=== PATIENT | male | born 1970 | race Caucasian/White ===

== ENCOUNTER 2021-01-10 10:42 | Inpatient (IN) | payer OTHER ==
[2021-01-10] MEDS ORDERED: SODIUM CHLORIDE 0.9% 1,000 ML IV STA (11:10)
--- NOTE | 2021-01-10 11:16 | ED ---
General Adult HPI - General Chief complaint: Abdominal Pain Stated complaint: rt sided abd pain Time Seen by Provider: 01/10/21 10:56 Source: patient, RN notes reviewed Mode of arrival: ambulatory Limitations: no limitations - History of Present Illness Initial comments: Patient's a 50-year-old male presented to the emergency room today with a chief complaint of jaundice. Patient does admit that he noticed this 2 weeks ago. He does admit that he was drinking more heavily this past year. He states he's started to cut his drinking down approximately a few weeks ago. He states around the same time is when he noticed that his skin was jaundiced. He states it as Slightly better. He is only been drinking a few drinks per day of hard liquor. Patient does admit that at times she's noticed some discomfort in the right upper quadrant. He does admit that he's distended at times. Denies any other complaints or symptoms currently. Patient denies any recent fever, chills, shortness of breath, chest pain, back pain, nausea or vomiting, numbness or tingling, headaches or visual changes, or any other complaints. - Related Data Home Medications Medication Instructions Recorded Confirmed Cetirizine HCl [Zyrtec] 10 mg PO DAILY 01/10/21 01/10/21 Krill Oil 500 mg PO DAILY 01/10/21 01/10/21 L.acidoph,Paracasei, B.lactis 1 cap PO DAILY 01/10/21 01/10/21 [Probiotic] Multivitamins, Thera [Multivitamin 1 tab PO DAILY 01/10/21 01/10/21 (formulary)] Vitamin B Complex 1 cap PO DAILY 01/10/21 01/10/21 Allergies Allergy/AdvReac Type Severity Reaction Status Date / Time pistachio nut Allergy Rash/Hives Verified 01/10/21 11:22 soy Allergy Rash/Hives Verified 01/10/21 11:22 Review of Systems ROS Statement: Those systems with pertinent positive or pertinent negative responses have been documented in the HPI. ROS Other: All systems not noted in ROS Statement are negative. Past Medical History Past Medical History: No Reported History History of Any Multi-Drug Resistant Organisms: None Reported Additional Past Surgical History / Comment(s): wisdom teeth Past Psychological History: No Psychological Hx Reported Smoking Status: Former smoker Past Alcohol Use History: Abuse, Daily, Heavy Past Drug Use History: None Reported General Exam - General Exam Comments Initial Comments: General: The patient is awake and alert, in no distress, and does not appear acutely ill. Eye: Pupils are equal, round and reactive to light, extra-ocular movements are intact. Icterus present. Ears, nose, mouth and throat: There are moist mucous membranes and no oral le sions. Neck: The neck is supple Cardiovascular: There is a regular rate and rhythm. No murmur, rub or gallop is appreciated. Respiratory: Lungs are clear to auscultation, respirations are non-labored, breath sounds are equal. No wheezes, stridor, rales, or rhonchi. Gastrointestinal: Admits soft on palpation. Patient does have some mild tenderness in the right upper quadrant. No rebound, guarding or CVA tenderness. Musculoskeletal: Normal ROM, no tenderness. Strength 5/5. Sensation intact. Neurological: A&O x 3. CN II-XII intact, There are no obvious motor or sensory deficits. Coordination appears grossly intact. Speech is normal. Skin: Skin is warm and dry and no rashes or lesions are noted. Psychiatric: Cooperative, appropriate mood & affect, normal judgment. Limitations: no limitations Course Vital Signs 01/10/21 01/10/21 01/10/21 10:46 12:24 14:45 Temperature 99.0 F Pulse Rate 98 95 88 Respiratory 18 18 18 Rate Blood Pressure 132/84 121/74 115/71 O2 Sat by Pulse 96 94 L 93 L Oximetry Medical Decision Making - Medical Decision Making Patient reexamined is resting covered. Patient labs been reviewed. The case wa s discussed in detail with his PCP Dr. Monroy who will admit the patient with consult to GI. Patient is with plan states understanding and is agreement. - Lab Data Result diagrams: 01/10/21 11:25 01/10/21 11:25 Lab Results 01/10/21 01/10/21 01/10/21 Range/Units 11:25 11:25 11:25 WBC 14.9 H (3.8-10.6) k/uL RBC 4.10 L (4.30-5.90) m/uL Hgb 15.4 (13.0-17.5) gm/dL Hct 45.0 (39.0-53.0) % MCV 109.8 H (80.0-100.0) fL MCH 37.5 H (25.0-35.0) pg MCHC 34.1 (31.0-37.0) g/dL RDW 13.0 (11.5-15.5) % Plt Count 365 (150-450) k/uL MPV 10.6 Neutrophils % 79 % Lymphocytes % 11 % Monocytes % 6 % Eosinophils % 1 % Basophils % 1 % Neutrophils # 11.7 H (1.3-7.7) k/uL Lymphocytes # 1.7 (1.0-4.8) k/uL Monocytes # 0.9 (0-1.0) k/uL Eosinophils # 0.2 (0-0.7) k/uL Basophils # 0.2 (0-0.2) k/uL Manual Slide Review Performed Macrocytosis Marked A Target Cells Present PT 14.3 H (9.0-12.0) sec INR 1.4 H (<1.2) APTT 29.5 (22.0-30.0) sec Sodium (137-145) mmol/L Potassium (3.5-5.1) mmol/L Chloride (98-107) mmol/L Carbon Dioxide (22-30) mmol/L Anion Gap mmol/L BUN (9-20) mg/dL Creatinine (0.66-1.25) mg/dL Est GFR (CKD-EPI)AfAm (>60 ml/min/1.73 sqM) Est GFR (CKD-EPI)NonAf (>60 ml/min/1.73 sqM) Glucose (74-99) mg/dL Calcium (8.4-10.2) mg/dL Total Bilirubin (0.2-1.3) mg/dL AST (17-59) U/L ALT (4-49) U/L Alkaline Phosphatase (38-126) U/L Total Protein (6.3-8.2) g/dL Albumin (3.5-5.0) g/dL Amylase (30-110) U/L Lipase (23-300) U/L Urine Color Dark Yellow Urine Appearance Clear (Clear) Urine pH 6.0 (5.0-8.0) Ur Specific [place] 1.007 (1.001-1.035) Urine Protein Negative (Negative) Urine Glucose (UA) Negative (Negative) Urine Ketones Negative (Negative) Urine Blood Negative (Negative) Urine Nitrite Negative (Negative) Urine Bilirubin 4+ H (Negative) Urine Urobilinogen 2.0 (<2.0) mg/dL Ur Leukocyte Esterase Trace H (Negative) Urine RBC <1 (0-5) /hpf Urine WBC 3 (0-5) /hpf Urine Bacteria Occasional H (None) /hpf Urine Mucus Rare H (None) /hpf 01/10/21 Range/Units 11:25 WBC (3.8-10.6) k/uL RBC (4.30-5.90) m/uL Hgb (13.0-17.5) gm/dL Hct (39.0-53.0) % MCV (80.0-100.0) fL MCH (25.0-35.0) pg MCHC (31.0-37.0) g/dL RDW (11.5-15.5) % Plt Count (150-450) k/uL MPV Neutrophils % % Lymphocytes % % Monocytes % % Eosinophils % % Basophils % % Neutrophils # (1.3-7.7) k/uL Lymphocytes # (1.0-4.8) k/uL Monocytes # (0-1.0) k/uL Eosinophils # (0-0.7) k/uL Basophils # (0-0.2) k/uL Manual Slide Review Macrocytosis Target Cells PT (9.0-12.0) sec INR (<1.2) APTT (22.0-30.0) sec Sodium 131 L (137-145) mmol/L Potassium 3.8 (3.5-5.1) mmol/L Chloride 97 L (98-107) mmol/L Carbon Dioxide 23 (22-30) mmol/L Anion Gap 11 mmol/L BUN 4 L (9-20) mg/dL Creatinine 0.58 L (0.66-1.25) mg/dL Est GFR (CKD-EPI)AfAm >90 (>60 ml/min/1.73 sqM) Est GFR (CKD-EPI)NonAf >90 (>60 ml/min/1.73 sqM) Glucose 116 H (74-99) mg/dL Calcium 9.3 (8.4-10.2) mg/dL Total Bilirubin 26.3 H* (0.2-1.3) mg/dL AST 170 H (17-59) U/L ALT 64 H (4-49) U/L Alkaline Phosphatase 298 H (38-126) U/L Total Protein 7.6 (6.3-8.2) g/dL Albumin 3.6 (3.5-5.0) g/dL Amylase 55 (30-110) U/L Lipase 203 (23-300) U/L Urine Color Urine Appearance (Clear) Urine pH (5.0-8.0) Ur Specific [place] (1.001-1.035) Urine Protein (Negative) Urine Glucose (UA) (Negative) Urine Ketones (Negative) Urine Blood (Negative) Urine Nitrite (Negative) Urine Bilirubin (Negative) Urine Urobilinogen (<2.0) mg/dL Ur Leukocyte Esterase (Negative) Urine RBC (0-5) /hpf Urine WBC (0-5) /hpf Urine Bacteria (None) /hpf Urine Mucus (None) /hpf Disposition Clinical Impression: Liver cirrhosis, Cholelithiasis Disposition: ADMITTED IP TO THIS [facility] Condition: Stable Is patient prescribed a controlled substance at d/c from ED?: No Referrals: Miguel Monroy MD [Primary Care Provider] - 1-2 days Time of Disposition: 15:18
[2021-01-10 11:52] LABS: Appearance,Urine Clear (Clear); Bacteria,Urine Occasional /hpf; Bilirubin,Urine 4+ (Negative); Blood,Urine Negative (Negative); Color,Urine Dark Yellow; Glucose,Urine (UA) Negative (Negative); Ketones,Urine Negative (Negative); Leukocyte Esterase,Urine Trace (Negative); Mucus,Urine Rare /hpf; Nitrite,Urine Negative (Negative); Protein,Urine Negative (Negative); RBC,Urine <1 /hpf (0-5); Specific Gravity,Urine 1.007 (1.001-1.035); WBC,Urine 3 /hpf (0-5)
[2021-01-10 11:58] LABS: Basophils # (A) 0.2 k/uL (0-0.2); Basophils % (A) 1 %; Eosinophils # (A) 0.2 k/uL (0-0.7); Eosinophils % (A) 1 %; HGB 15.4 gm/dL (13.0-17.5); Lymphocytes # (A) 1.7 k/uL (1.0-4.8); Lymphocytes % (A) 11 %; MCH 37.5 pg (25.0-35.0); MCHC 34.1 g/dL (31.0-37.0); MCV 109.8 fL (80.0-100.0); Macrocytosis Marked; Mean Platelet Volume 10.6; Monocytes # (A) 0.9 k/uL (0-1.0); Monocytes % (A) 6 %; Neutrophils # (A) 11.7 k/uL (1.3-7.7); Neutrophils % (A) 79 %; Platelet Count 365 k/uL (150-450); WBC 14.9 k/uL (3.8-10.6)
[2021-01-10 12:08] LABS: INR 1.4 (<1.2); Partial Thromboplastin Time 29.5 sec (22.0-30.0); Prothrombin Time 14.3 sec (9.0-12.0)
[2021-01-10 12:13] LABS: ALT 64 U/L (4-49); AST 170 U/L (17-59); African American GFR (CKD) >90 (>60 ml/min/1.73 sqM); Albumin 3.6 g/dL (3.5-5.0); Amylase 55 U/L (30-110); Anion Gap 11 mmol/L; Blood Urea Nitrogen 4 mg/dL (9-20); Calcium 9.3 mg/dL (8.4-10.2); Carbon Dioxide 23 mmol/L (22-30); Chloride 97 mmol/L (98-107); Glucose 116 mg/dL (74-99); Lipase 203 U/L (23-300); Non-African American GFR(CKD) >90 (>60 ml/min/1.73 sqM); Potassium 3.8 mmol/L (3.5-5.1); Sodium 131 mmol/L (137-145)
[2021-01-10 12:15] LABS: Target Cells Present
[2021-01-10 12:26] LABS: Total Protein 7.6 g/dL (6.3-8.2)
[2021-01-10 12:27] LABS: Alkaline Phosphatase 298 U/L (38-126)
--- NOTE | 2021-01-10 13:37 | US ---
EXAMINATION TYPE: US abdomen limited DATE OF EXAM: 01/10/2021 COMPARISON: NONE CLINICAL HISTORY: pain. Jaundice and swelling x 1 week. No c/o pain EXAM MEASUREMENTS: Liver Length: 26.1 cm Gallbladder Wall: 0.2 cm CBD: 0.6 cm Right Kidney: 12.6 x 6.9 x 5.9 cm Pancreas: Heterogeneous, hypoechoic. Pancreatic duct = 0.1 cm Liver: enlarged, dilated biliary radicles Gallbladder: with multiple stones Evidence for sonographic Ngo's sign: No CBD: enlarged Right Kidney: No hydronephrosis or masses seen IMPRESSION: 1. Hepatic biliary dilatation with mild fatty infiltration. 2. Cholelithiasis 3.
[2021-01-10] MEDS ORDERED: NALOXONE 0.4 MG/ML 1 ML VIAL IV PRN (15:18)
[2021-01-10 15:34] LABS: Total Bilirubin 26.3 mg/dL (0.2-1.3)
[2021-01-10 22:40] LABS: Hepatitis A Antibody IgM Non-Reactive (Non-Reactive); Hepatitis B Core IgM Non-Reactive (Non-Reactive); Hepatitis C IgG Antibody Non-Reactive (Non-Reactive)
[2021-01-10 22:41] LABS: Hepatitis B Surface Antigen Non-Reactive (Non-Reactive)
[2021-01-10] MEDS: SODIUM CHLORIDE 0.9% 1,000 ML IV SCH (23:14)
[2021-01-10] MEDS: HYDROcodone/APAP 5-325MG 1 EACH TAB PO PRN (23:14)
[2021-01-11] MEDS: SODIUM CHLORIDE 0.9% 1,000 ML IV SCH ×2 (06:13→17:08)
[2021-01-11] MEDS ORDERED: LORazepam 2 MG/ML INJ IV PRN ×3 (09:37)
[2021-01-11 11:24] LABS: HCT 40.3 % (39.6-50.0); MCH 36.8 pg (27.0-32.0); MCHC 34.7 g/dL (32.0-37.0); MCV 106.1 fL (80.0-97.0); Mean Platelet Volume 12.2 fL (9.5-12.2); Platelet Count 304 X 10*3/uL (140-440); WBC 13.25 X 10*3/uL (4.50-10.00)
[2021-01-11 11:26] LABS: INR 1.39 (0.90-1.11); Prothrombin Time 14.8 sec (9.9-11.9)
[2021-01-11 13:40] LABS: Basophils % (A) 1.5 %; Eosinophils # (A) 0.24 X 10*3/uL (0.04-0.35); Eosinophils % (A) 1.8 %; Lymphocytes # (A) 1.95 X 10*3/uL (0.90-5.00); Lymphocytes % (A) 14.7 %; Macrocytosis (M) 2+; Monocytes # (A) 1.48 X 10*3/uL (0.20-1.00); Monocytes % (A) 11.2 %; Neutrophils # (A) 9.27 X 10*3/uL (1.80-7.70); Target Cells 2+
[2021-01-11 14:11] LABS: African American GFR (CKD) 137.8 (60.0-200.0); Albumin 3.3 g/dL (3.80-4.90); Albumin/Globulin Ratio 1.22 (1.60-3.17); Anion Gap 10.7 mmol/L (4.00-12.00); Calcium 8.2 mg/dL (8.7-10.3); Carbon Dioxide 25.3 mmol/L (21.6-31.8); Globulin 2.7 g/dL (1.6-3.3); Non-African American GFR(CKD) 118.9 (60.0-200.0); Potassium 4.2 mmol/L (3.5-5.5); Total Bilirubin 24.6 mg/dL (0.3-1.2)
--- NOTE | 2021-01-11 14:16 | MR ---
"EXAMINATION TYPE: MR liver wo/w con and mrcp DATE OF EXAM: 01/11/2021 COMPARISON: Ultrasound abdomen limited from yesterday HISTORY: CBD stone? Pain and jaundice with swelling for one week. CONTRAST: Standard multiplanar, multisequence MRI departmental protocol images were obtained without contrast a nd with 10 mL intravenous Gadavist gadolinium contrast. Imaging performed of the abdomen. Thin and t hick slice MRCP imaging is performed on the MRI scanner. FINDINGS: Liver/gallbladder/pancreas/biliary system: Mild hepatomegaly and prominent right hepatic lobe are pre sent. Liver shows diffuse signal dropout consistent with diffuse fatty infiltration and/or underlying hepatocellular disease. No surrounding ascites. Some heterogeneous postcontrast enhancement with ove rall mosaic architecture appearance without distinct suspicious focal solid or cystic mass. Prominent nondilated main portal vein. Prominent hepatic veins draining into IVC. Gallbladder has multiple sma ll dependent calculi without surrounding fluid or fat stranding. Pancreas is normal in size without c oncerning solid or cystic mass. MRCP images show multiple small stones within the central intrahepati c ducts at level of ivy hepatis extending into the extrahepatic ducts with multiple intraductal jasiel culi extending towards the ampulla. Mild intrahepatic biliary dilatation up to 9 mm on image 39 serie s 901. Pancreatic duct is not dilated. No significant intrahepatic biliary dilatation is seen. I jae mate approximately 15 stone in the biliary system outside the cystic duct. Other: Slightly elevated right hemidiaphragm with right basilar linear scarring and/or atelectasis. S plenomegaly at 16.2 cm coronal image 25. No concerning hydronephrosis seen bilaterally. There is 2.9 cm exophytic thin-walled cyst or cystic lesion posteriorly from left kidney mid pole level without en hancement suggesting proteinaceous cyst. No AAA. No suspicious bowel dilatation. Adrenal and glands a re within normal limits. Osseous structures are intact. IMPRESSION: Approximately 15 stones in the biliary system outside the cystic duct extending to the ce ntral intrahepatic ducts. No intrahepatic biliary dilatation. Mild extrahepatic biliary dilatation. A dditional multiple small calculi within gallbladder without MRI evidence for acute cholecystitis. A Yellow level critical message alert has been initiated for Miguel Monroy MD via the [employer] | Critical Results System on 01/11/2021 2:13 PM. This message alert has been sent to Kathrin Monroy MD via the preferences provided by the clinician for the receipt of Radiology Critical F indings. Message ID [id number]."
--- NOTE | 2021-01-11 16:10 | P.CONS ---
History of Present Illness - Reason for Consult Consult date: 01/11/21 hyperbilirubinemia Requesting physician: Miguel Monroy - Chief Complaint Jaundice - History of Present Illness This is a 50-year-old white male with a past medical history significant of alcohol abuse who presented to the emergency department with jaundice.. The pa светлана reports he drinks 6 beers and a half pain daily for the last 20 years up until about 2 months ago which he states he cut down and is only drinking 1-2 beers a day. Patient states his told him he was looking yellow and noticed about 2 weeks ago he was becoming more yellow and having dark urine. His been complaining also of some abdominal bloating, no nausea or vomiting. He has no other significant past medical history. Admitting lab work showed WBC 14.9 hemoglobin 15.4 hematocrit 45 platelet count 365,000 INR 1.4 total bilirubin 26.3 AST 178 OT 64 alkaline phosphatase 298 amylase 55 lipase 203. Acute Hepatitis panel nonreactive. Patient denies any previous history of liver di sease, hepatitis, or pancreatitis. Denies any previous history of gallbladder disease. This stayed about 8-10 years ago he was jaundiced, did not to seek any medical treatment at that time. The patient underwent an abdominal ultrasound that showed hepatic biliary dilation with mild fatty infiltration. CBD measured 0.6 cm. Patient denies any abdominal pain other than some abdominal distention and bloating. No nausea or vomiting. He's been afebrile. Review of Systems REVIEW OF SYSTEMS: CARDIOPULMONARY: No chest pain or shortness of breath. Gastrointestinal: Abdominal bloating and pressure.. No nausea or vomiting. No hematemesis, coffee-ground emesis. No rectal bleeding, or melena. GENITOURINARY: No dysuria or hematuria. MUSCULOSKELETAL: Reports normal range of motion., Joint pain. SKIN: No rashes. Jaundice.. ENDOCRINE: No chills, fevers. No excessive weight gain or loss. No polydipsia or polyuria. PSYCHIATRIC: Unremarkable. NEUROLOGY: No change in mental status. Denies dizziness, headache. ENT: Vision unremarkable. CONSTITUTIONAL: No recent weight loss. No fever, chills, night sweats. Past Medical History Past Medical History: No Reported History Additional Past Medical History / Comment(s): allergies History of Any Multi-Drug Resistant Organisms: None Reported Additional Past Surgical History / Comment(s): wisdom teeth Past Psychological History: No Psychological Hx Reported Smoking Status: Former smoker Past Alcohol Use History: Abuse, Daily, Heavy Past Drug Use History: None Reported Medications and Allergies Home Medications Medication Instructions Recorded Confirmed Type Cetirizine HCl [Zyrtec] 10 mg PO DAILY 01/10/21 01/10/21 History Krill Oil 500 mg PO DAILY 01/10/21 01/10/21 History L.acidoph,Paracasei, B.lactis 1 cap PO DAILY 01/10/21 01/10/21 History [Probiotic] Multivitamins, Thera [Multivitamin 1 tab PO DAILY 01/10/21 01/10/21 History (formulary)] Vitamin B Complex 1 cap PO DAILY 01/10/21 01/10/21 History Allergies Allergy/AdvReac Type Severity Reaction Status Date / Time pistachio nut Allergy Rash/Hives Verified 01/10/21 11:22 soy Allergy Rash/Hives Verified 01/10/21 11:22 Physical Exam Vitals: Vital Signs Temp Pulse Pulse Resp BP BP Pulse Ox 01/11/21 07:52 98.4 F 92 16 115/74 93 L 01/11/21 01:50 98.3 F 96 17 116/73 92 L 01/10/21 21:10 98.6 F 95 17 139/89 96 01/10/21 20:00 98.1 F 96 20 129/85 93 L 01/10/21 14:45 88 18 115/71 93 L 01/10/21 12:24 95 18 121/74 94 L 01/10/21 10:46 99.0 F 98 18 132/84 96 Intake and Output 01/10/21 01/11/21 01/11/21 22:59 06:59 14:59 Other: Voiding Method Toilet # Voids 1 2 Weight 103.419 kg General appearance: The patient is alert, oriented, appears in no acute distress. HET: Head is normocephalic and atraumatic. Conjunctiva pink. Sclera deeply icteric. Neck: Supple without lymphadenopathy. Trachea midline. Heart: S1 S2. Regular rate and rhythm. Lungs: Clear to auscultation. Abdomen: Soft, nontender, nondistended with bowel sounds. No guarding or rigidity. Skin: No rashes. Jaundice.. Extremities: Normal skin color and turgor. No pedal edema. Neurological: No focal deficits. Alert and oriented 3.. Results CBC & Chem 7: 01/11/21 07:09 01/11/21 07:09 Labs: Abnormal Lab Results - Last 24 Hours (Table) 01/10/21 01/10/21 01/10/21 Range/Units 11:25 11:25 11:25 WBC 14.9 H (3.8-10.6) k/uL RBC 4.10 L (4.30-5.90) m/uL MCV 109.8 H (80.0-100.0) fL MCH 37.5 H (25.0-35.0) pg Neutrophils # 11.7 H (1.3-7.7) k/uL Macrocytosis Marked A PT 14.3 H (9.0-12.0) sec INR 1.4 H (<1.2) Sodium (137-145) mmol/L Chloride (98-107) mmol/L BUN (9-20) mg/dL Creatinine (0.66-1.25) mg/dL Glucose (74-99) mg/dL Total Bilirubin (0.2-1.3) mg/dL AST (17-59) U/L ALT (4-49) U/L Alkaline Phosphatase (38-126) U/L Urine Bilirubin 4+ H (Negative) Ur Leukocyte Esterase Trace H (Negative) Urine Bacteria Occasional H (None) /hpf Urine Mucus Rare H (None) /hpf 01/10/21 Range/Units 11:25 WBC (3.8-10.6) k/uL RBC (4.30-5.90) m/uL MCV (80.0-100.0) fL MCH (25.0-35.0) pg Neutrophils # (1.3-7.7) k/uL Macrocytosis PT (9.0-12.0) sec INR (<1.2) Sodium 131 L (137-145) mmol/L Chloride 97 L (98-107) mmol/L BUN 4 L (9-20) mg/dL Creatinine 0.58 L (0.66-1.25) mg/dL Glucose 116 H (74-99) mg/dL Total Bilirubin 26.3 H* (0.2-1.3) mg/dL AST 170 H (17-59) U/L ALT 64 H (4-49) U/L Alkaline Phosphatase 298 H (38-126) U/L Urine Bilirubin (Negative) Ur Leukocyte Esterase (Negative) Urine Bacteria (None) /hpf Urine Mucus (None) /hpf Comments: Abdominal ultrasound shows hepatic biliary dilation with mild fatty infiltration. Cholelithiasis. Assessment and Plan (1) Hyperbilirubinemia Narrative/Plan: 50-year-old male with no significant past medical history other than alcohol abuse for the past 20 years. Patient states he had been drinking 6 date. [place] along with half a pint a day. He states about 2 months ago he started to cut back. He presented to the emergency department for evaluation of the ongoing of his skin. He states approximately 2 weeks ago he started noticing his skin turning yellow which has been worsening over the last few days. He also states he has been having dark urine, abdominal bloating and occasional sharp pains. He denies any nausea or vomiting. He's had no previous EGD or colonoscopy. Denies any previous history of liver disease, hepatitis, pancreatitis, or known gallbladder disease. On admission he was noted to have elevated LFTs, leukocytosis. Admitting labs WBC 14.9 hemoglobin 15 hematocrit 45 platelet count 365 Biju an INR 1.4 total bilirubin 26.3 AST [id number] a 64 alk phos 298 amylase 55 lipase 203. Acute hepatitis panel was nonreactive. Patient underwent ultrasound of the abdomen showing hepatic biliary dilation with mild fatty infiltration and cholelithiasis. MRI/MRCP of the liver is ordered per primary care. Labs and patient's history is consistent with acute alcoholic hepatitis. However biliary obstruction needs to be considered as well. Will await MRI/MRCP results. Current Visit: Yes Status: Acute Code(s): E80.6 - OTHER DISORDERS OF BILI YOUNG METABOLISM SNOMED Code(s): 15346019 (2) Alcohol abuse Current Visit: Yes Status: Acute Code(s): F10.10 - ALCOHOL ABUSE, UNCOMPLICATED SNOMED Code(s): 06806835 Plan: 1. Continue symptomatic and supportive care 2. Patient may have regular diet after MRI 3. Repeat CBC, INR, BMP 4. Hepatic function panel in the morning 5. Further recommendations forthcoming Thank you for this consultation, we will continue to follow. Dr. Manpreet Medrano I agree with the dictator's note, documented as a scribe by Moriah Michelle.
[2021-01-11] MEDS: THIAMINE 100 MG TAB PO SCH (17:07)
--- NOTE | 2021-01-11 18:06 | PN ---
PROGRESS NOTE DATE OF SERVICE: 01/11/2021 CHIEF COMPLAINT: Jaundice. HISTORY OF PRESENT ILLNESS: This gentleman doing well. He has shown no signs of DTs. PHYSICAL EXAMINATION: Abdomen is soft and nontender and there are no masses. Chest is clear. Cardiac exam is normal. IMPRESSION: Painless jaundice. PLAN: MRCP and follow blood work. His picture seems to be more compatible with biliary obstruction with common duct stone or neoplasm to be ruled out. MMODL / IJN: [id number] /
--- NOTE | 2021-01-11 18:12 | HP ---
HISTORY AND PHYSICAL CHIEF COMPLAINT: Jaundice. HISTORY OF PRESENT ILLNESS: This is the first known admission for this 50-year-old white male. He came to the emergency room because he was jaundiced. In the emergency room his bilirubin was 26. He was admitted as alcoholic hepatitis and for impending DTs. However, he used to drink 4-6 beers a day and a half a pint of liquor, but this was up until several months ago when he started to decrease his drinking. He is now down to 1 or 2 beers a day. He is not lethargic and he shows no signs of DTs. He has been in DTs in the past, but has none of the same symptoms. In the emergency room, his AST and ALT were moderately elevated, but his alkaline phosphatase was very high. He had an ultrasound that demonstrated cholelithiasis. He has had no blackouts, seizures, etc. REVIEW OF SYSTEMS: Otherwise unremarkable. He has no other systemic complaints. Past medical history, family history, and personal and social histories are also otherwise unremarkable and noncontributory. He takes Zyrtec. He is NOT ALLERGIC TO ANY MEDICATION. He has had no surgery. He does not smoke. PHYSICAL EXAMINATION: Blood pressure is 136/80 with a pulse of 70, respirations of 18, and he is afebrile. In general he appeared to be deeply jaundiced. He was fully awake, alert and oriented. He had no tremors or diplopia. Head, ears, eyes, nose, mouth and throat were normal except for the icterus. Chest was clear to auscultation. Cardiac exam demonstrated sinus rhythm and no murmurs or extra sounds. The abdomen was slightly distended, but soft and nontender and there was no visceromegaly or masses. Bowel sounds present. Extremities were normal. Neurologically he is intact. He is admitted to the hospital with diagnoses: 1. Painless jaundice. 2. History of alcoholism. 3. Cholelithiasis. PLAN: 1. Bedrest. 2. IV fluids. 3. GI consult. 4. MRCP to rule out biliary disease with obstruction. MMODL / IJN: [id number] /
[2021-01-12] MEDS: HYDROcodone/APAP 5-325MG 1 EACH TAB PO PRN ×3 (00:04→22:25)
[2021-01-12] MEDS: SODIUM CHLORIDE 0.9% 1,000 ML IV SCH ×2 (07:53→15:30)
[2021-01-12] MEDS: LORATADINE 10 MG TAB PO SCH (07:54)
[2021-01-12] MEDS: THIAMINE 100 MG TAB PO SCH ×2 (07:54→17:22)
[2021-01-12] MEDS ORDERED: PHYTONADIONE ORAL 5 MG/5 ML ORAL.SYRG PO STA (07:59)
[2021-01-12 08:53] LABS: ALT 55 U/L (4-49); AST 128 U/L (17-59); African American GFR (CKD) >90 (>60 ml/min/1.73 sqM); Albumin 2.8 g/dL (3.5-5.0); Albumin/Globulin Ratio 0.8; Alkaline Phosphatase 246 U/L (38-126); Anion Gap 9 mmol/L; Blood Urea Nitrogen 6 mg/dL (9-20); Calcium 8.5 mg/dL (8.4-10.2); Carbon Dioxide 24 mmol/L (22-30); Chloride 102 mmol/L (98-107); Globulin 3.6 g/dL; Glucose 79 mg/dL (74-99); Non-African American GFR(CKD) >90 (>60 ml/min/1.73 sqM); Potassium 4.2 mmol/L (3.5-5.1); Sodium 135 mmol/L (137-145)
[2021-01-12 09:04] LABS: Total Bilirubin 22.8 mg/dL (0.2-1.3); Total Protein 6.4 g/dL (6.3-8.2)
[2021-01-12 09:39] LABS: Basophils # (A) 0.26 X 10*3/uL (0.00-0.10); Basophils % (A) 2.1 %; Eosinophils # (A) 0.29 X 10*3/uL (0.04-0.35); Eosinophils % (A) 2.3 %; HCT 38.1 % (39.6-50.0); HGB 13.4 g/dL (13.0-17.0); Lymphocytes # (A) 1.91 X 10*3/uL (0.90-5.00); Lymphocytes % (A) 15.1 %; MCH 36.9 pg (27.0-32.0); MCHC 35.2 g/dL (32.0-37.0); Mean Platelet Volume 11.9 fL (9.5-12.2); Monocytes % (A) 11.8 %; Neutrophils # (A) 8.61 X 10*3/uL (1.80-7.70); Neutrophils % (A) 67.9 %; Platelet Count 305 X 10*3/uL (140-440); RBC 3.63 X 10*6/uL (4.40-5.60); WBC 12.67 X 10*3/uL (4.50-10.00)
[2021-01-12 10:16] LABS: INR 1.41 (0.90-1.11)
[2021-01-12 10:43] LABS: Albumin 3.2 g/dL (3.80-4.90); Albumin/Globulin Ratio 1.19 (1.60-3.17); Bilirubin, Conjugated 20.1 mg/dL (0.20-0.40); Bilirubin,Unconjugated 5.1 mg/dL; Globulin 2.7 g/dL (1.6-3.3); Total Bilirubin 25.2 mg/dL (0.3-1.2); Total Protein 5.9 g/dL (6.2-8.2)
--- NOTE | 2021-01-12 11:36 | PN ---
PROGRESS NOTE CHIEF COMPLAINT: Obstructive jaundice. HISTORY OF PRESENT ILLNESS: This gentleman is doing well. He has very minimal discomfort occasionally. Bilirubin is down slightly. Studies confirm that he has numerous intrahepatic and common duct stones. He is apparently going for an ERCP tomorrow. PHYSICAL EXAMINATION: Vital signs are normal. He remains jaundiced. Chest is clear. Cardiac exam is normal. The abdomen is distended. This could be related to ascites. The degree of cirrhosis that he may or may not have is not clear at this time. IMPRESSION: 1. Jaundice. 2. Biliary obstruction. 3. Choledocholithiasis. 4. Cholelithiasis. 5. Alcoholism. 6. Cirrhosis. 7. Ascites. PLAN: ERCP tomorrow, and pending results he will undergo cholecystectomy either in the near or distant future. MMODL / IJN: [id number] /
--- NOTE | 2021-01-12 15:05 | P.PN ---
Subjective Progress Note Date: 01/12/21 Principal diagnosis: Hyperbilirubinemia, choledocholithiasis This is a 50-year-old white male with a past medical history significant of alcohol abuse who presented to the emergency department with jaundice.. The patient reports he drinks 6 beers and a half pain daily for the last 20 years up until about 2 months ago which he states he cut down and is only drinking 1-2 beers a day. Patient states his told him he was looking yellow and noticed about 2 weeks ago he was becoming more yellow and having dark urine. His been complaining also of some abdominal bloating, no nausea or vomiting. He has no other significant past medical history. Admitting lab work showed WBC 14.9 hemoglobin 15.4 hematocrit 45 platelet count 365,000 INR 1.4 total bilirubin 26.3 AST 178 OT 64 alkaline phosphatase 298 amylase 55 lipase 203. Acute Hepatitis panel nonreactive. Patient denies any previous history of liver disease, hepatitis, or pancreatitis. Denies any previous history of gallbladder disease. This stayed about 8-10 years ago he was jaundiced, did not to seek any medical treatment at that time. The patient underwent an abdominal ultrasound that showed hepatic biliary dilation with mild fatty infiltration. CBD measured 0.6 cm. patient underwent MRI/MRCP of the liver yesterday that showed approximately 15 stones in the biliary system outside the cystic duct extending to the central intrahepatic ducts. No intra-hepatic biliary dilation. Mild extrahepatic biliary dilation. Additional multiple small calculi within gallbladder without MRI evidence for acute cholecystitis. Patient is seen and examined sitting up at the bedside. He states he is doing well overall. States he did have some discomfort in the right upper quadrant of his abdomen through the night. Denies any nausea or vomiting. He is tolerating his diet. Patient has been afebrile. Objective - Vital Signs Vital signs: Vital Signs Temp 98.2 F 01/12/21 07:16 Pulse 89 01/12/21 07:16 Resp 18 01/12/21 07:16 BP 135/84 01/12/21 07:16 Pulse Ox 95 01/12/21 07:16 Intake & Output 01/11/21 01/12/21 01/12/21 18:59 06:59 18:59 Intake Total 600 Balance 600 Intake: Intake, IV Titration 600 Amount Sodium Chloride 0.9% 1, 600 000 ml @ 75 mls/hr IV . [id number] [facility] Rx#:[id number] Other: Voiding Method Toilet # Voids 3 - Exam General appearance: The patient is alert, oriented, appears in no acute distress. HET: Head is normocephalic and atraumatic. Conjunctiva pink. Sclera deeply icteric. Neck: Supple without lymphadenopathy. Abdomen: Soft, mild right upper quadrant tenderness, nondistended with bowel sounds. No guarding or rigidity. Extremities: Normal skin color and turgor. No pedal edema Skin: No rashes, jaundice. Neurological: No focal deficits. Alert and oriented 3. - Labs CBC & Chem 7: 01/12/21 06:04 01/12/21 06:04 Labs: Abnormal Lab Results - Last 24 Hours (Table) 01/11/21 01/11/21 01/11/21 Range/Units 07:09 07:09 07:09 WBC 13.25 H (4.50-10.00) X 10*3/uL RBC 3.80 L (4.40-5.60) X 10*6/uL Hct (39.6-50.0) % MCV 106.1 H (80.0-97.0) fL MCH 36.8 H (27.0-32.0) pg RDW 16.0 H (11.5-14.5) % Immature Gran # 0.11 H (0.00-0.04) X 10*3/uL Neutrophils # 9.27 H (1.80-7.70) X 10*3/uL Monocytes # 1.48 H (0.20-1.00) X 10*3/uL Basophils # 0.20 H (0.00-0.10) X 10*3/uL PT 14.8 H (9.9-11.9) sec INR 1.39 H (0.90-1.11) Sodium (137-145) mmol/L BUN 6.0 L (9.0-27.0) mg/dL Creatinine (0.66-1.25) mg/dL BUN/Creatinine Ratio 10.00 L (12.00-20.00) Ratio Calcium 8.2 L (8.7-10.3) mg/dL Total Bilirubin 24.6 H* (0.3-1.2) mg/dL AST 140 H (14-35) U/L ALT 59 H (10-49) U/L Alkaline Phosphatase 235 H (41-126) U/L Total Protein 6.0 L (6.2-8.2) g/dL Albumin 3.30 L (3.80-4.90) g/dL Albumin/Globulin Ratio 1.22 L (1.60-3.17) g/dL 01/12/21 01/12/21 Range/Units 06:04 06:04 WBC 12.67 H (4.50-10.00) X 10*3/uL RBC 3.63 L (4.40-5.60) X 10*6/uL Hct 38.1 L (39.6-50.0) % MCV 105.0 H (80.0-97.0) fL MCH 36.9 H (27.0-32.0) pg RDW 16.0 H (11.5-14.5) % Immature Gran # 0.10 H (0.00-0.04) X 10*3/uL Neutrophils # 8.61 H (1.80-7.70) X 10*3/uL Monocytes # 1.50 H (0.20-1.00) X 10*3/uL Basophils # 0.26 H (0.00-0.10) X 10*3/uL PT (9.9-11.9) sec INR (0.90-1.11) Sodium 135 L (137-145) mmol/L BUN 6 L (9.0-27.0) mg/dL Creatinine 0.62 L (0.66-1.25) mg/dL BUN/Creatinine Ratio (12.00-20.00) Ratio Calcium (8.7-10.3) mg/dL Total Bilirubin 22.8 H* (0.3-1.2) mg/dL AST 128 H (14-35) U/L ALT 55 H (10-49) U/L Alkaline Phosphatase 246 H (41-126) U/L Total Protein (6.2-8.2) g/dL Albumin 2.8 L (3.80-4.90) g/dL Albumin/Globulin Ratio (1.60-3.17) g/dL Assessment and Plan (1) Hyperbilirubinemia Narrative/Plan: 50-year-old male with no significant past medical history other than alcohol abuse for the past 20 years. Patient states he had been drinking 6 date. Kishore along with half a pint a day. He states about 2 months ago he started to cut back. He presented to the emergency department for evaluation of the ongoing of his skin. He states approximately 2 weeks ago he started noticing his skin turning yellow which has been worsening over the last few days. He also states he has been having dark urine, abdominal bloating and occasional sharp pains. He denies any nausea or vomiting. He's had no previous EGD or colonoscopy. Denies any previous history of liver disease, hepatitis, pancreatitis, or known gallbladder disease. On admission he was noted to have elevated LFTs, leukocytosis. Admitting labs WBC 14.9 hemoglobin 15 hematocrit 45 platelet count 365 Biju an INR 1.4 total bilirubin 26.3 AST [id number] a 64 alk phos 298 amylase 55 lipase 203. Acute hepatitis panel was nonreactive. Patient underwent ultrasound of the abdomen showing hepatic biliary dilation with mild fatty infiltration and cholelithiasis. MRI/MRCP of the liver is ordered per primary care. Labs and patient's history is consistent with acute alcoholic hepatitis. However biliary obstruction needs to be considered as well. MRCP ordered and reviewed within the impression stating approximately 15 stones in the biliary system outside the cystic duct extending to the central intrahepatic ducts. No intrahepatic biliary dilation. Mild extrahepatic biliary dilation. Additional multiple small calculi within the gallbladder without MRI evidence for acute cholecystitis. Will proceed with ERCP tomorrow. Current Visit: Yes Status: Acute Code(s): E80.6 - OTHER DISORDERS OF BILIRUBIN METABOLISM SNOMED Code(s): 73956155 (2) Alcohol abuse Current Visit: Yes Status: Acute Code(s): F10.10 - ALCOHOL ABUSE, UNCOMPLICATED SNOMED Code(s): 21745075 Plan: 1. Continue symptomatic and supportive care 2. Low-fat diet, nothing by mouth after midnight 3. Repeat CBC, INR, CMP daily 4. MRCP reviewed 5. Vitamin K 10 mg by mouth 1 ordered 6. Indomethacin 100 mg 1 hour prior to ERCP 7. Continue Zosyn as ordered 8. We'll plan ERCP tomorrow, procedure discussed with patient in detail including risks and benefits. Patient is willing to proceed. Thank you for this consultation, we will continue to follow. Dr. Manpreet Medrano I agree with the dictator's note, documented as a scribe by Moriah Michelle.
--- NOTE | 2021-01-12 15:13 | P.GSCN ---
History of Present Illness Consult date: 01/12/21 History of present illness: CHIEF COMPLAINT: Jaundice HISTORY OF PRESENT ILLNESS: This is a 50-year-old male with a known history of alcohol abuse. Patient reports drinking about 6 beers and a half a pint daily for about 20 years. And over the last couple months he has cut down to 1-2 beers daily. Over the last 2 weeks patient has noticed that he was jaundiced. He was starting to have dark urine. His symptoms continued to worsen therefore he came into the ER for further evaluation and treatment. He also had reported some abdominal bloating. He also had tenderness with mostly movement that shot across the upper abdomen from the right to the left upper abdomen. He denies any nausea or vomiting. He had abdominal ultrasound completed that had shown hepatic biliary dilation with mild fatty infiltration and cholelithiasis. Patient had significantly elevated bilirubin and elevated LFTs. There are concerns for choledocholithiasis. Patient seen and evaluated by GI service. Liver MRI was then completed showing approximately 15 stones in the biliary s ystem outside the cystic duct extending to the central intrahepatic ducts. No intrahepatic biliary dilatation. Mild extrahepatic biliary dilatation. Additional multiple small calculi within the gallbladder without evidence for acute cholecystitis. Patient is scheduled for ERCP tomorrow with GI service. Surgical service consulted for choledocholithiasis. Patient denies any nausea or vomiting. Denies any worse abdominal pain after eating. Denies any fever chills or sweats. PAST MEDICAL HISTORY: See list. PAST SURGICAL HISTORY: See list. MEDICATIONS: See list. ALLERGIES: See list. SOCIAL HISTORY: No illicit drug use. REVIEW OF SYSTEMS: CONSTITUTIONAL: Denies fever or chills. HEENT: Denies blurred vision, vision changes, or eye pain. Denies hemoptysis CARDIOVASCULAR: Denies chest pain or pressure. RESPIRATORY: No shortness of breath. GASTROINTESTINAL: See HPI for pertinent findings HEMATOLOGIC: Denies bleeding disorders. GENITOURINARY: Denies any blood in urine or increased urinary frequency. SKIN: Denies pruitis. Denies rash. PHYSICAL EXAM: VITAL SIGNS: Reviewed GENERAL: Well-developed in no acute distress. HEENT: has sclera icterus. Extraocular movements grossly intact. Moist buccal mucosa. Head is atraumatic, normocephalic. No nasal drainage. ABDOMEN: Soft. Distended. Nontender. NEUROLOGIC: Alert and oriented. Cranial nerves II through XII grossly intact. Skin: Jaundiced LABORATORY DATA: WBC trending downwards from 14.9 on admission down to 12.7 hemoglobin 13.4 INR 1.41 sodium 135 potassium 4.2 BUN 6 creatinine 0.62 Total bilirubin 26.3 down to 22.8 AST 170 down to 128 ALT 64 down to 59 alk phos 298 down to 246 Lipase 203 Hepatitis panel negative COVID-19 undetected Urinalysis elevated bilirubin level IMAGING: Imaging as stated above ASSESSMENT: 1. Choledocholithiasis 2. Jaundice and hyperbilirubinemia 3. Biliary obstruction 4. Alcohol abuse PLAN: -Patient is scheduled for ERCP tomorrow with GI service -We'll plan for laparoscopic cholecystectomy on 01/16/[address] Garcia -We'll empirically start patient on antibiotics -Continue to monitor LFTs and bilirubin -Recommend Low-Fat Diet -Continue IV fluids -Continue Ativan as needed for EtOH withdrawal Thank you for this consultation Physician Senior Label Specialist note has been reviewed by physician. Signing provider agrees with the documented findings, assessment, and plan of care. Past Medical History Past Medical History: No Reported History Additional Past Medical History / Comment(s): allergies History of Any Multi-Drug Resistant Organisms: None Reported Additional Past Surgical History / Comment(s): wisdom teeth Past Psychological History: No Psychological Hx Reported Smoking Status: Former smoker Past Alcohol Use History: Abuse, Daily, Heavy Past Drug Use History: None Reported Medications and Allergies Home Medications Medication Instructions Recorded Confirmed Type Cetirizine HCl [Zyrtec] 10 mg PO DAILY 01/10/21 01/10/21 History Krill Oil 500 mg PO DAILY 01/10/21 01/10/21 History L.acidoph,Paracasei, B.lactis 1 cap PO DAILY 01/10/21 01/10/21 History [Probiotic] Multivitamins, Thera [Multivitamin 1 tab PO DAILY 01/10/21 01/10/21 History (formulary)] Vitamin B Complex 1 cap PO DAILY 01/10/21 01/10/21 History Allergies Allergy/AdvReac Type Severity Reaction Status Date / Time pistachio nut Allergy Rash/Hives Verified 01/10/21 11:22 soy Allergy Rash/Hives Verified 01/10/21 11:22 Surgical - Exam Vital Signs Temp Pulse Resp BP Pulse Ox 99.0 F 98 18 132/84 96 09/21/21 10:46 01/10/21 10:46 01/10/21 10:46 01/10/21 10:46 01/10/21 10:46 Results - Labs 01/12/21 06:04 01/12/21 06:04 Abnormal Lab Results - Last 24 Hours (Table) 01/12/21 01/12/21 01/12/21 Range/Units 06:04 06:04 06:04 WBC 12.67 H (4.50-10.00) X 10*3/uL RBC 3.63 L (4.40-5.60) X 10*6/uL Hct 38.1 L (39.6-50.0) % MCV 105.0 H (80.0-97.0) fL MCH 36.9 H (27.0-32.0) pg RDW 16.0 H (11.5-14.5) % Immature Gran # 0.10 H (0.00-0.04) X 10*3/uL Neutrophils # 8.61 H (1.80-7.70) X 10*3/uL Monocytes # 1.50 H (0.20-1.00) X 10*3/uL Basophils # 0.26 H (0.00-0.10) X 10*3/uL PT 15.0 H (9.9-11.9) sec INR 1.41 H (0.90-1.11) Sodium (137-145) mmol/L BUN (9-20) mg/dL Creatinine (0.66-1.25) mg/dL Total Bilirubin 25.2 H* (0.3-1.2) mg/dL Conjugated Bilirubin 20.10 H (0.20-0.40) mg/dL AST 125 H (14-35) U/L ALT 59 H (10-49) U/L Alkaline Phosphatase 226 H (41-126) U/L Total Protein 5.9 L (6.2-8.2) g/dL Albumin 3.20 L (3.80-4.90) g/dL Albumin/Globulin Ratio 1.19 L (1.60-3.17) g/dL 01/12/21 Range/Units 06:04 WBC (4.50-10.00) X 10*3/uL RBC (4.40-5.60) X 10*6/uL Hct (39.6-50.0) % MCV (80.0-97.0) fL MCH (27.0-32.0) pg RDW (11.5-14.5) % Immature Gran # (0.00-0.04) X 10*3/uL Neutrophils # (1.80-7.70) X 10*3/uL Monocytes # (0.20-1.00) X 10*3/uL Basophils # (0.00-0.10) X 10*3/uL PT (9.9-11.9) sec INR (0.90-1.11) Sodium 135 L (137-145) mmol/L BUN 6 L (9-20) mg/dL Creatinine 0.62 L (0.66-1.25) mg/dL Total Bilirubin 22.8 H* (0.3-1.2) mg/dL Conjugated Bilirubin (0.20-0.40) mg/dL AST 128 H (14-35) U/L ALT 55 H (10-49) U/L Alkaline Phosphatase 246 H (41-126) U/L Total Protein (6.2-8.2) g/dL Albumin 2.8 L (3.80-4.90) g/dL Albumin/Globulin Ratio (1.60-3.17) g/dL Diabetes panel 01/12/21 01/12/21 Range/Units 06:04 06:04 Sodium Cancelled 135 L Potassium Cancelled 4.2 Chloride Cancelled 102 Carbon Dioxide Cancelled 24 BUN Cancelled 6 L Creatinine Cancelled 0.62 L Glucose Cancelled 79 Calcium Cancelled 8.5 AST 125 H 128 H (14-35) U/L ALT 59 H 55 H (10-49) U/L Alkaline Phosphatase 226 H 246 H (41-126) U/L Total Protein 5.9 L 6.4 (6.2-8.2) g/dL Albumin 3.20 L 2.8 L (3.80-4.90) g/dL Calcium panel 01/12/21 01/12/21 Range/Units 06:04 06:04 Calcium Cancelled 8.5 Albumin 3.20 L 2.8 L (3.80-4.90) g/dL Pituitary panel 01/12/21 01/12/21 Range/Units 06:04 06:04 Sodium Cancelled 135 L Potassium Cancelled 4.2 Chloride Cancelled 102 Carbon Dioxide Cancelled 24 BUN Cancelled 6 L Creatinine Cancelled 0.62 L Glucose Cancelled 79 Calcium Cancelled 8.5 Adrenal panel 01/12/21 01/12/21 Range/Units 06:04 06:04 Sodium Cancelled 135 L Potassium Cancelled 4.2 Chloride Cancelled 102 Carbon Dioxide Cancelled 24 BUN Cancelled 6 L Creatinine Cancelled 0.62 L Glucose Cancelled 79 Calcium Cancelled 8.5 Total Bilirubin 25.2 H* 22.8 H* (0.3-1.2) mg/dL AST 125 H 128 H (14-35) U/L ALT 59 H 55 H (10-49) U/L Alkaline Phosphatase 226 H 246 H (41-126) U/L Total Protein 5.9 L 6.4 (6.2-8.2) g/dL Albumin 3.20 L 2.8 L (3.80-4.90) g/dL
[2021-01-12] MEDS: PIPERACILLIN-TAZOBACTAM 3.375 GM in SODIUM CHLORIDE 0.9% 100 ML IVPB SCH (15:30)
[2021-01-13] MEDS: PIPERACILLIN-TAZOBACTAM 3.375 GM in SODIUM CHLORIDE 0.9% 100 ML IVPB SCH ×4 (00:55→23:11)
[2021-01-13] MEDS: THIAMINE 100 MG TAB PO SCH ×2 (06:36→16:10)
[2021-01-13] MEDS: LORATADINE 10 MG TAB PO SCH (07:52)
[2021-01-13] MEDS: SODIUM CHLORIDE 0.9% 1,000 ML IV SCH ×2 (07:58→16:10)
[2021-01-13 09:43] LABS: HGB 14.3 gm/dL (13.0-17.5); MCHC 32.6 g/dL (31.0-37.0); Macrocytosis Marked; Mean Platelet Volume 9.1; Platelet Count 323 k/uL (150-450); RBC 3.87 m/uL (4.30-5.90); RDW 12.4 % (11.5-15.5)
[2021-01-13 09:58] LABS: ALT 56 U/L (4-49); AST 134 U/L (17-59); African American GFR (CKD) >90 (>60 ml/min/1.73 sqM); Albumin 2.9 g/dL (3.5-5.0); Albumin/Globulin Ratio 0.8; Alkaline Phosphatase 239 U/L (38-126); Anion Gap 10 mmol/L; Blood Urea Nitrogen 4 mg/dL (9-20); Calcium 8.4 mg/dL (8.4-10.2); Carbon Dioxide 20 mmol/L (22-30); Chloride 105 mmol/L (98-107); Globulin 3.6 g/dL; Glucose 88 mg/dL (74-99); Non-African American GFR(CKD) >90 (>60 ml/min/1.73 sqM); Sodium 135 mmol/L (137-145)
[2021-01-13 10:00] LABS: Total Bilirubin 22.2 mg/dL (0.2-1.3); Total Protein 6.5 g/dL (6.3-8.2)
[2021-01-13 10:03] LABS: MCV 113.6 fL (80.0-100.0)
[2021-01-13 10:06] LABS: Prothrombin Time 14.4 sec (9.0-12.0)
[2021-01-13 10:07] LABS: INR 1.4 (<1.2)
--- NOTE | 2021-01-13 12:20 | P.PN ---
Subjective Progress Note Date: 01/13/21 CHIEF COMPLAINT: Jaundice HISTORY OF PRESENT ILLNESS: Surgical service following in regards to patient's choledocholithiasis. Patient is scheduled for ERCP with GI service today. He denies any abdominal pain. Denies any nausea or vomiting. His urine is dark. Afebrile. WBC is 12 hemoglobin 14.3 platelets 323 INR 1.4 total bilirubin 22.2 AST is up from 128-134 ALT 55 to 56 and alk phos 246 down to 239 PHYSICAL EXAM: VITAL SIGNS: Reviewed. GENERAL: Well-developed in no acute distress. HEENT: Positive for sclera icterus. Extraocular movements grossly intact. Moist buccal mucosa. Head is atraumatic, normocephalic. ABDOMEN: Soft. Nondistended. Nontender. NEUROLOGIC: Alert and oriented. Cranial nerves II through XII grossly intact. Skin: Jaundiced ASSESSMENT: 1. Choledocholithiasis 2. Jaundice and hyperbilirubinemia 3. Biliary obstruction 4. Alcohol abuse PLAN: -Patient is scheduled for ERCP today with GI service -We'll plan for laparoscopic cholecystectomy on 01/16/[address] Garcia -continue antibiotics -Continue to monitor LFTs and bilirubin -Recommend Low-Fat Diet -Continue IV fluids -Continue Ativan as needed for EtOH withdrawal Physician Ruby Rails Developer note has been reviewed by physician. Signing provider agrees with the documented findings, assessment, and plan of care. Objective - Vital Signs Vital signs: Vital Signs Temp 98.3 F 01/13/21 09:35 Pulse 83 01/13/21 09:35 Resp 16 01/13/21 09:35 BP 124/76 01/13/21 09:35 Pulse Ox 94 L 01/13/21 09:35 Intake & Output 01/12/21 01/13/21 01/13/21 18:59 06:59 18:59 Intake Total 600 700 200 Balance 600 700 200 Intake: Intake, IV Titration 600 700 200 Amount Piperacillin-Tazobactam 3 100 200 .375 gm In Sodium Chloride 0.9% 100 ml @ 25 mls/hr IVPB Q8HR [facility] Rx# :[id number] Sodium Chloride 0.9% 1, 600 600 000 ml @ 75 mls/hr IV . [id number] [facility] Rx#:[id number] Other: # Voids 3 - Labs CBC & Chem 7: 01/13/21 09:10 09/24/21 09:10 Labs: Abnormal Lab Results - Last 24 Hours (Table) 01/13/21 01/13/21 01/13/21 Range/Units 09:10 09:10 09:10 WBC 12.0 H (3.8-10.6) k/uL RBC 3.87 L (4.30-5.90) m/uL MCV 113.6 H (80.0-100.0) fL MCH 37.0 H (25.0-35.0) pg Macrocytosis Marked A PT 14.4 H (9.0-12.0) sec INR 1.4 H (<1.2) Sodium 135 L (137-145) mmol/L Carbon Dioxide 20 L (22-30) mmol/L BUN 4 L (9-20) mg/dL Creatinine 0.55 L (0.66-1.25) mg/dL Total Bilirubin 22.2 H* (0.2-1.3) mg/dL AST 134 H (17-59) U/L ALT 56 H (4-49) U/L Alkaline Phosphatase 239 H (38-126) U/L Albumin 2.9 L (3.5-5.0) g/dL
[2021-01-13] MEDS ORDERED: INDOMETHACIN 50MG SUPPOSITORY RECTAL ONE (13:00)
[2021-01-13] MEDS ORDERED: GLYCOPYRROLATE 0.2 MG/ML 2 ML VIAL ONE (14:21)
[2021-01-13] MEDS ORDERED: LIDOCAINE 1% INJ 10MG/ML (20 ML MDV) ONE (14:21)
[2021-01-13] MEDS ORDERED: GLUCAGON 1 MG/ML VIAL ONE (14:21)
[2021-01-13] MEDS ORDERED: MIDAZOLAM 2 MG/2 ML VIAL ONE (14:21)
[2021-01-13] MEDS ORDERED: fentaNYL (PF) 50 MCG/ML 2 ML AMP ONE (14:21)
[2021-01-13] MEDS ORDERED: PROPOFOL 10 MG/ML 20 ML VIAL IV ONE (14:21)
[2021-01-13] MEDS ORDERED: IV FLUID CONTINUATION 400 ML IV ONE (14:23)
[2021-01-13] MEDS ORDERED: SODIUM CHLORIDE 0.9% 500 ML 500 ML IV ONE ×2 (14:41)
[2021-01-13] MEDS ORDERED: IOPAMIDOL-300 50ML BTL MISCELLANE ONE ×2 (14:50→15:15)
--- NOTE | 2021-01-13 15:55 | P.PCN ---
Date of Procedure: 01/13/21 Procedure(s) Performed: Brief history: Patient is a 50-year-old white male scheduled for an ERCP as part of evaluation of jaundice/being up to abdominal pain and elevated serum transaminases for the last 2 days' duration.. The patient wasn't to have a bilirubin of 29 and mild elevation of AST and AST. Ultrasound revealed dilated CBD. Subsequently an MRI was performed which revealed multiple stones in the common bile duct consistent with choledocholithiasis. Procedure performed: ERCP with biliary sphincterotomy and balloon stone extraction Preoperative diagnoses: Jaundice/elevated LFTs and Choledocholithiasis IV sedation per anesthesia: Procedure: After informed consent was obtained from the patient and after the risks benefits and complications including bleeding perforation and pancreatitis explained in detail the patient was brought into the endoscopy unit. The patient was placed in prone position and IV conscious sedation was administered by anesthesia under continuous monitoring. The Olympus side-viewing duodenoscope was then inserted into the mouth and esophagus intubated without any difficulty. The scope was gradually advanced into the stomach and duodenum. The major papilla was identified without any difficulty. Initial cannulation resulted in opacification of the pancreatic duct that appeared normal. Subsequent cannulation resulted in opacification of common bile duct appeared dilated measuring 1.5 cm in diameter with multiple filling defects status post were each another consistent with choledocholithiasis. At this time biliary sphincterotomy was performed over a guidewire and was extended to 1.2 cm in length. Following this an 11.5 mm balloon was passed over the guidewire into the distal CBD and was gently withdrawn. Some difficulty and was able to extract at least 15-20 stones from the CBD. Occlusion cholangio-was performed with Michelle the procedure and there were no more filling defects identified. Patient tolerated the procedure well. Impression: 1. Normal-appearing pancreatic duct 2. Dilated common bile duct with multiple filling defects status post over each other filling the entire common bile duct status post biliary stent enterotomy and balloon stone extraction and at least 15-20 stones were extracted with some difficulty. Recommendations: The findings of this examination were discussed with the patient. He'll be started on clear liquid diet. Continue antibiotics. Monitor LFTs closely. She is on schedule for cautery surgery on Saturday..
[2021-01-13] MEDS: HYDROcodone/APAP 5-325MG 1 EACH TAB PO PRN (23:11)
--- NOTE | 2021-01-14 07:22 | FL ---
Fluoroscopy History: CBD stones CBD stones. 3.32mins fluoro. [address] Medrano
[2021-01-14] MEDS: THIAMINE 100 MG TAB PO SCH ×2 (07:48→16:12)
[2021-01-14] MEDS: PIPERACILLIN-TAZOBACTAM 3.375 GM in SODIUM CHLORIDE 0.9% 100 ML IVPB SCH ×2 (07:48→16:12)
[2021-01-14] MEDS: LORATADINE 10 MG TAB PO SCH (07:48)
[2021-01-14] MEDS ORDERED: BENZOCAINE SPRAY 1 CAN MUCOUS MEM PRN (08:52)
[2021-01-14 09:33] LABS: Basophils # (A) 0.17 X 10*3/uL (0.00-0.10); Basophils % (A) 1.5 %; Eosinophils # (A) 0.24 X 10*3/uL (0.04-0.35); Eosinophils % (A) 2.2 %; HCT 37.1 % (39.6-50.0); HGB 12.8 g/dL (13.0-17.0); Lymphocytes # (A) 1.32 X 10*3/uL (0.90-5.00); Lymphocytes % (A) 11.8 %; MCH 36.2 pg (27.0-32.0); MCHC 34.5 g/dL (32.0-37.0); MCV 104.8 fL (80.0-97.0); Mean Platelet Volume 11.7 fL (9.5-12.2); Monocytes # (A) 0.86 X 10*3/uL (0.20-1.00); Monocytes % (A) 7.7 %; Neutrophils # (A) 8.48 X 10*3/uL (1.80-7.70); Neutrophils % (A) 76.2 %; Platelet Count 300 X 10*3/uL (140-440); RBC 3.54 X 10*6/uL (4.40-5.60); RDW 15.5 % (11.5-14.5); WBC 11.14 X 10*3/uL (4.50-10.00)
[2021-01-14] MEDS: SODIUM CHLORIDE 0.9% 1,000 ML IV SCH (12:21)
--- NOTE | 2021-01-14 12:24 | P.PN ---
Subjective Progress Note Date: 01/14/21 Principal diagnosis: Cholecystitis Patient doing better today. White blood cell count 11.1. No pain. 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 No CMP labs back Objective - Vital Signs Vital signs: Vital Signs Temp 98.6 F 01/14/21 07:59 Pulse 73 01/14/21 07:59 Resp 18 01/14/21 07:59 BP 127/80 01/14/21 07:59 Pulse Ox 94 L 01/14/21 07:59 Intake & Output 01/13/21 01/14/21 01/14/21 18:59 06:59 18:59 Intake Total 1635 Balance 1635 Intake: IV 800 Intake, IV Titration 200 Amount Piperacillin-Tazobactam 3 200 .375 gm In Sodium Chloride 0.9% 100 ml @ 25 mls/hr IVPB Q8HR [facility] Rx# :[id number] Blood Product 635 Ffp 24 Cpd Unit 316 [id number] Ffp 24 Cpd Unit 319 [id number] Other: Voiding Method Toilet Toilet # Voids 2 # Bowel Movements 0 - Exam Abdomen: Soft, mild right upper quadrant tenderness, no rebound or guarding - Labs CBC & Chem 7: 01/14/21 05:49 01/13/21 09:10 Labs: Abnormal Lab Results - Last 24 Hours (Table) 01/14/21 Range/Units 05:49 WBC 11.14 H (4.50-10.00) X 10*3/uL RBC 3.54 L (4.40-5.60) X 10*6/uL Hgb 12.8 L (13.0-17.0) g/dL Hct 37.1 L (39.6-50.0) % MCV 104.8 H (80.0-97.0) fL MCH 36.2 H (27.0-32.0) pg RDW 15.5 H (11.5-14.5) % Immature Gran # 0.07 H (0.00-0.04) X 10*3/uL Neutrophils # 8.48 H (1.80-7.70) X 10*3/uL Basophils # 0.17 H (0.00-0.10) X 10*3/uL Assessment and Plan (1) Cholelithiasis Narrative/Plan: Patient seems to be doing well after ERCP performed yesterday. We will check repeat labs tomorrow. Patient scheduled for cholecystectomy Saturday. Current Visit: Yes Status: Acute Code(s): K80.20 - CALCULUS OF GALLBLADDER W/O CHOLECYSTITIS W/O OBSTRUCTION SNOMED Code(s): 329735682
[2021-01-14 15:57] LABS: African American GFR (CKD) 137.8 (60.0-200.0); Albumin 3.1 g/dL (3.80-4.90); Albumin/Globulin Ratio 1.15 (1.60-3.17); Anion Gap 11.8 mmol/L (4.00-12.00); BUN/Creat Ratio 8.33 Ratio (12.00-20.00); Carbon Dioxide 23.2 mmol/L (21.6-31.8); Globulin 2.7 g/dL (1.6-3.3); Non-African American GFR(CKD) 118.9 (60.0-200.0); Potassium 3.6 mmol/L (3.5-5.5); Total Bilirubin 23.4 mg/dL (0.3-1.2); Total Protein 5.8 g/dL (6.2-8.2)
--- NOTE | 2021-01-14 19:21 | PN ---
PROGRESS NOTE DATE OF SERVICE: 01/14/2021 CHIEF COMPLAINT: Obstructive jaundice. HISTORY OF PRESENT ILLNESS: This gentleman is stable and doing fairly well. He apparently underwent sphincterotomy with removal of many common duct stones. He is doing well at the present time. His is slated for cholecystectomy on Saturday. PHYSICAL EXAMINATION: He remains jaundiced. Chest is clear. Cardiac exam is normal. IMPRESSION: Obstructive jaundice status post sphincterotomy. PLAN: Continue to follow blood work and cholecystectomy on Saturday. MMODL / IJN: [id number] /
--- NOTE | 2021-01-14 19:21 | PN ---
PROGRESS NOTE DATE OF SERVICE: 01/13/2021. CHIEF COMPLAINT: Painless jaundice. HISTORY OF PRESENT ILLNESS: This gentleman's bilirubin is still staying up around 22. He is going today for an ERCP. PHYSICAL EXAMINATION: He remains deeply jaundiced. Chest is clear. Cardiac exam is normal. The abdomen is slightly distended. There are no masses and there is no tenderness. IMPRESSION: Obstructive jaundice. PLAN: ERCP today. MMODL / IJN: [id number] /
[2021-01-14] MEDS: HYDROcodone/APAP 5-325MG 1 EACH TAB PO PRN (21:40)
[2021-01-15] MEDS: PIPERACILLIN-TAZOBACTAM 3.375 GM in SODIUM CHLORIDE 0.9% 100 ML IVPB SCH ×4 (00:03→22:24)
[2021-01-15] MEDS: SODIUM CHLORIDE 0.9% 1,000 ML IV SCH ×2 (00:05→07:24)
[2021-01-15] MEDS: HYDROcodone/APAP 5-325MG 1 EACH TAB PO PRN ×2 (07:23→22:29)
[2021-01-15] MEDS: THIAMINE 100 MG TAB PO SCH ×2 (07:23→17:07)
[2021-01-15] MEDS: LORATADINE 10 MG TAB PO SCH (07:23)
--- NOTE | 2021-01-15 11:19 | P.PN ---
Subjective Progress Note Date: 01/15/21 Principal diagnosis: Cholecystitis Patient is having about 20 minutes worth of pain last night but that resolved. Doing well today. No nausea or vomiting. Tolerating diet. No labs yet Objective - Vital Signs Vital signs: Vital Signs Temp 99.0 F 01/15/21 07:34 Pulse 80 01/15/21 07:34 Resp 18 01/15/21 07:34 BP 125/80 01/15/21 07:34 Pulse Ox 94 L 01/15/21 07:34 Intake & Output 01/14/21 01/15/21 01/15/21 18:59 06:59 18:59 Other: Voiding Method Toilet Toilet # Voids 3 3 # Bowel Movements 0 - Exam Abdomen: Soft, nondistended, nontender - Labs CBC & Chem 7: 01/14/21 05:49 01/14/21 05:49 Labs: Abnormal Lab Results - Last 24 Hours (Table) 01/14/21 Range/Units 05:49 BUN 5.0 L (9.0-27.0) mg/dL BUN/Creatinine Ratio 8.33 L (12.00-20.00) Ratio Calcium 8.0 L (8.7-10.3) mg/dL Total Bilirubin 23.4 H* (0.3-1.2) mg/dL AST 124 H (14-35) U/L ALT 58 H (10-49) U/L Alkaline Phosphatase 210 H (41-126) U/L Total Protein 5.8 L (6.2-8.2) g/dL Albumin 3.10 L (3.80-4.90) g/dL Albumin/Globulin Ratio 1.15 L (1.60-3.17) g/dL Assessment and Plan (1) Cholelithiasis Narrative/Plan: Patient doing well today. Remains quite jaundiced however. Check morning labs. Proceed with cholecystectomy tomorrow if stable. Current Visit: Yes Status: Acute Code(s): K80.20 - CALCULUS OF GALLBLADDER W/O CHOLECYSTITIS W/O OBSTRUCTION SNOMED Code(s): 245381714
[2021-01-15 12:11] LABS: Basophils # (A) 0.25 X 10*3/uL (0.00-0.10); Basophils % (A) 1.8 %; Eosinophils # (A) 0.32 X 10*3/uL (0.04-0.35); Eosinophils % (A) 2.2 %; HCT 38.9 % (39.6-50.0); HGB 13.5 g/dL (13.0-17.0); Lymphocytes # (A) 1.88 X 10*3/uL (0.90-5.00); Lymphocytes % (A) 13.2 %; MCH 36.5 pg (27.0-32.0); MCHC 34.7 g/dL (32.0-37.0); MCV 105.1 fL (80.0-97.0); Mean Platelet Volume 11.6 fL (9.5-12.2); Monocytes # (A) 1.43 X 10*3/uL (0.20-1.00); Neutrophils # (A) 10.29 X 10*3/uL (1.80-7.70); Neutrophils % (A) 72.2 %; Platelet Count 316 X 10*3/uL (140-440); RDW 15.5 % (11.5-14.5); WBC 14.25 X 10*3/uL (4.50-10.00)
[2021-01-15 12:55] LABS: ALT 62 U/L (10-49); AST 148 U/L (14-35); African American GFR (CKD) 148.5 (60.0-200.0); Albumin/Globulin Ratio 1.15 (1.60-3.17); Alkaline Phosphatase 225 U/L (41-126); Blood Urea Nitrogen <5.0 mg/dL (9.0-27.0); Calcium 7.9 mg/dL (8.7-10.3); Carbon Dioxide 27.4 mmol/L (21.6-31.8); Chloride 103 mmol/L (96-109); Globulin 2.7 g/dL (1.6-3.3); Glucose 78 mg/dL (70-110); Non-African American GFR(CKD) 128.1 (60.0-200.0); Potassium 3.6 mmol/L (3.5-5.5); Sodium 135 mmol/L (135-145); Total Bilirubin 22.7 mg/dL (0.3-1.2); Total Protein 5.8 g/dL (6.2-8.2)
[2021-01-16] MEDS: SODIUM CHLORIDE 0.9% 1,000 ML IV SCH ×2 (04:03→17:23)
[2021-01-16] MEDS: LORATADINE 10 MG TAB PO SCH (07:05)
[2021-01-16] MEDS: THIAMINE 100 MG TAB PO SCH ×2 (07:05→17:23)
[2021-01-16] MEDS ORDERED: IV FLUID CONTINUATION 250 ML IV ONE (07:39)
[2021-01-16] MEDS ORDERED: ONDANSETRON 4 MG/2 ML VIAL ONE (07:53)
[2021-01-16] MEDS ORDERED: ONDANSETRON 4 MG/2 ML VIAL IVP ONE ×2 (07:57)
[2021-01-16] MEDS ORDERED: DEXAMETHASONE SOD PHOSPHATE 4 MG/ML 1 ML VIAL IV ONE (07:58)
[2021-01-16] MEDS ORDERED: fentaNYL (PF) 50 MCG/ML 2 ML AMP ONE (08:34)
[2021-01-16] MEDS ORDERED: PROPOFOL 10 MG/ML 20 ML VIAL IV ONE (08:34)
[2021-01-16] MEDS ORDERED: ROCURONIUM 10 MG/ML (5 ML VIAL) IV ONE (08:34)
[2021-01-16] MEDS ORDERED: HYDROmorphone (PF) 1 MG/ML ONE (08:34)
[2021-01-16] MEDS ORDERED: NEOSTIGMINE 1 MG/ML 10 ML VIAL ONE (08:34)
[2021-01-16] MEDS ORDERED: LIDOCAINE 1% INJ 10MG/ML (20 ML MDV) ONE (08:34)
[2021-01-16] MEDS ORDERED: SUCCINYLCHOLINE CHLORIDE 100 MG/5 ML SYR IV ONE (08:34)
[2021-01-16] MEDS ORDERED: HEPARIN SODIUM,PORCINE 5,000 UNIT/ML 1 ML VIAL ONE (08:34)
[2021-01-16] MEDS ORDERED: MIDAZOLAM 2 MG/2 ML VIAL ONE (08:34)
[2021-01-16] MEDS ORDERED: GLYCOPYRROLATE 0.2 MG/ML 2 ML VIAL ONE (08:34)
[2021-01-16] MEDS ORDERED: HEPARIN SODIUM,PORCINE/PF 5,000 UNIT/0.5 ML SYRINGE SQ ONE (08:35)
[2021-01-16] MEDS ORDERED: BUPIVACAINE (PF) 0.5% 30 ML VIAL SQ ONE ×2 (08:36→09:01)
[2021-01-16] MEDS ORDERED: LACTATED RINGERS 1,000 ML IV ONE ×2 (09:03→10:19)
--- NOTE | 2021-01-16 09:46 | P.OP ---
Date of Procedure: 01/16/21 Preoperative Diagnosis: Cholecystitis Cholelithiasis Postoperative Diagnosis: Cholecystitis Cholelithiasis Procedure(s) Performed: Laparoscopic cholecystectomy Anesthesia: KRYSTINA Surgeon: Oz Garcia Estimated Blood Loss (ml): 25 Pathology: other (Gallbladder) Condition: stable Disposition: PACU Description of Procedure: The patient was placed on the operating table. The patient received a general endotracheal tube anesthesia. The patients abdomen was prepped and draped in the usual sterile fashion. Through an infraumbilical stab incision, the fascia of the anterior abdominal wall was grasped with a pair of Kochers and then the Veress needle was placed in the peritoneal cavity. Position of the Veress needle was confirmed with positive drop test. The abdomen was then insufflated. After adequate insufflation, the 10 mm trocar was placed in the peritoneal cavity. Following this the laparoscope was placed in the peritoneal cavity. The patient was placed in the head-up, right side up position and then a 5 mm trocar was placed in the right lateral and right subcostal position under direct visualization. A 8 mm trocar was placed in the epigastric position. The gallbladder was grasped in the fundus and infundibulum. Traction on the gallbladder was placed in the lateral and the cephalad positions. The triangle of Calot was visualized.. The cystic duct was bluntly dissected until the union of the cystic duct and common bile duct w as seen. A critical view of safety was achieved. The cystic duct was then divided and sealed with the Harmonic scissors. A PDS Endoloop was then placed throughout the cystic duct stump. The cystic artery divided and sealed with the Harmonic scissors. The gallbladder was then removed from the liver bed using Harmonic scissors. The gallbladder was then extracted through the epigastric port site. Operative field was checked for any bleeding spots and Harmonic scissors was used to coagulate the liver bed. The abdomen was irrigated. The trocars were removed. The skin was closed using interrupted 3-0 Vicryl suture. Dermabond dressing were applied. The patient tolerated the procedure well.
[2021-01-16] MEDS ORDERED: HYDROmorphone 0.5 MG/0.5 ML SYRINGE IVP ONE ×2 (10:03→10:11)
[2021-01-16 11:06] LABS: Basophils # (A) 0.1 k/uL (0-0.2); Basophils % (A) 1 %; Eosinophils # (A) 0.2 k/uL (0-0.7); Eosinophils % (A) 2 %; HCT 43.2 % (39.0-53.0); HGB 14.4 gm/dL (13.0-17.5); Lymphocytes # (A) 0.9 k/uL (1.0-4.8); Lymphocytes % (A) 6 %; MCH 37.9 pg (25.0-35.0); MCHC 33.4 g/dL (31.0-37.0); MCV 113.4 fL (80.0-100.0); Macrocytosis Marked; Mean Platelet Volume 8.7; Monocytes # (A) 0.2 k/uL (0-1.0); Monocytes % (A) 1 %; Neutrophils # (A) 13.4 k/uL (1.3-7.7); Neutrophils % (A) 89 %; Platelet Count 357 k/uL (150-450); RBC 3.81 m/uL (4.30-5.90); RDW 13.2 % (11.5-15.5); WBC 15.1 k/uL (3.8-10.6)
[2021-01-16] MEDS: PIPERACILLIN-TAZOBACTAM 3.375 GM in SODIUM CHLORIDE 0.9% 100 ML IVPB SCH ×3 (11:15→22:40)
[2021-01-16 11:20] LABS: ALT 57 U/L (4-49); AST 146 U/L (17-59); African American GFR (CKD) >90 (>60 ml/min/1.73 sqM); Albumin 2.9 g/dL (3.5-5.0); Albumin/Globulin Ratio 0.8; Alkaline Phosphatase 235 U/L (38-126); Anion Gap 9 mmol/L; Blood Urea Nitrogen 3 mg/dL (9-20); Calcium 8.3 mg/dL (8.4-10.2); Carbon Dioxide 24 mmol/L (22-30); Chloride 103 mmol/L (98-107); Globulin 3.5 g/dL; Glucose 117 mg/dL (74-99); Non-African American GFR(CKD) >90 (>60 ml/min/1.73 sqM); Potassium 3.9 mmol/L (3.5-5.1); Sodium 136 mmol/L (137-145); Total Protein 6.4 g/dL (6.3-8.2)
[2021-01-16 11:22] LABS: Total Bilirubin 20.1 mg/dL (0.2-1.3)
--- NOTE | 2021-01-16 17:15 | PN ---
PROGRESS NOTE DATE OF SERVICE: 01/15/2021 CHIEF COMPLAINT: Obstructive jaundice. HISTORY OF PRESENT ILLNESS: This gentleman is doing fairly well. He is going for surgery Saturday. There is somewhat of a concern in that he remains quite bloated and his bilirubin has not dropped a great deal. He is still hovering around 20 to 23. This would make one wonder if he has more of an issue with cirrhosis and ascites. It is also possible that there are some residual stones impacting the common duct. REVIEW OF SYSTEMS: He denies any chest pain, fever, chills, abdominal pain, etc. PHYSICAL EXAMINATION: He remains deeply jaundiced. Chest is clear. Cardiac exam is normal. The abdomen is protuberant, soft and nontender. There are no masses or visceromegaly. IMPRESSION: 1. Obstructive jaundice with choledocholithiasis. 2. Chronic alcoholism. 3. Possible cirrhosis with ascites. PLAN: He is going for cholecystectomy tomorrow. MMODL / IJN: [id number] /
--- NOTE | 2021-01-16 17:28 | PN ---
PROGRESS NOTE DATE OF SERVICE: 01/16/2021 CHIEF COMPLAINT: Jaundice. HISTORY OF PRESENT ILLNESS: This gentleman is going to the operating room today for cholecystectomy. He has been comfortable with no fever, chills, nausea, vomiting, etc. PHYSICAL EXAMINATION: He remains jaundiced. Chest is clear. Cardiac exam is normal. The abdomen is protuberant. IMPRESSION: 1. Choledocholithiasis. 2. Jaundice. PLAN: Cholecystectomy today and then will follow his laboratory studies postoperatively. MMODL / IJN: [id number] /
[2021-01-16] MEDS: HYDROcodone/APAP 5-325MG 1 EACH TAB PO PRN (22:39)
[2021-01-17 07:36] LABS: Basophils # (A) 0.1 k/uL (0-0.2); Basophils % (A) 0 %; Eosinophils # (A) 0.1 k/uL (0-0.7); Eosinophils % (A) 0 %; HCT 42.2 % (39.0-53.0); HGB 14.1 gm/dL (13.0-17.5); Lymphocytes # (A) 1.6 k/uL (1.0-4.8); Lymphocytes % (A) 10 %; MCH 38.1 pg (25.0-35.0); MCHC 33.3 g/dL (31.0-37.0); Macrocytosis Marked; Mean Platelet Volume 8.7; Monocytes # (A) 0.7 k/uL (0-1.0); Monocytes % (A) 4 %; Neutrophils # (A) 14.4 k/uL (1.3-7.7); Neutrophils % (A) 85 %; Platelet Count 301 k/uL (150-450); RBC 3.69 m/uL (4.30-5.90); RDW 12.6 % (11.5-15.5)
[2021-01-17 07:58] LABS: MCV 114.4 fL (80.0-100.0)
[2021-01-17] MEDS: THIAMINE 100 MG TAB PO SCH ×2 (08:08→16:23)
[2021-01-17] MEDS: PIPERACILLIN-TAZOBACTAM 3.375 GM in SODIUM CHLORIDE 0.9% 100 ML IVPB SCH ×2 (08:08→16:23)
[2021-01-17] MEDS: SODIUM CHLORIDE 0.9% 1,000 ML IV SCH (08:08)
[2021-01-17] MEDS: LORATADINE 10 MG TAB PO SCH (08:08)
[2021-01-17] MEDS: ENOXAPARIN 40 MG/0.4 ML SYRINGE SQ SCH (08:08)
[2021-01-17 08:24] LABS: ALT 62 U/L (4-49); AST 135 U/L (17-59); African American GFR (CKD) >90 (>60 ml/min/1.73 sqM); Albumin 2.5 g/dL (3.5-5.0); Albumin/Globulin Ratio 0.7; Alkaline Phosphatase 234 U/L (38-126); Anion Gap 6 mmol/L; Blood Urea Nitrogen 3 mg/dL (9-20); Calcium 8.4 mg/dL (8.4-10.2); Carbon Dioxide 27 mmol/L (22-30); Chloride 104 mmol/L (98-107); Globulin 3.5 g/dL; Glucose 101 mg/dL (74-99); Non-African American GFR(CKD) >90 (>60 ml/min/1.73 sqM); Potassium 3.8 mmol/L (3.5-5.1); Sodium 137 mmol/L (137-145)
[2021-01-17 08:28] LABS: Total Bilirubin 20.2 mg/dL (0.2-1.3)
--- NOTE | 2021-01-17 11:15 | P.PN ---
Subjective Progress Note Date: 01/17/21 CHIEF COMPLAINT: Jaundice HISTORY OF PRESENT ILLNESS: Patient is status post laparoscopic cholecystectomy for cholecystitis and cholelithiasis. Postop day #1. His pain is controlled. Denies any nausea or vomiting. He is having flatus. Tolerating diet. Afebrile. He did have some oozing of blood at incision sites. This has improved. WBC is 17 hemoglobin 14.1 platelets 301 sodium 137 total bilirubin 20.2 AST 135 ALT 62 alk phos 234 PHYSICAL EXAM: VITAL SIGNS: Reviewed. GENERAL: Well-developed in no acute distress. HEENT: Positive for sclera icterus. Extraocular movements grossly intact. Moist buccal mucosa. Head is atraumatic, normocephalic. ABDOMEN: Soft. Nondistended. Nontender. NEUROLOGIC: Alert and oriented. Cranial nerves II through XII grossly intact. Skin: Jaundiced ASSESSMENT: 1. Cholecystitis and cholelithiasis status post laparoscopic cholecystectomy 2. Choledocholithiasis 3. Jaundice and hyperbilirubinemia 4. Biliary obstruction 5. Alcohol abuse 6. Alcohol hepatitis PLAN: -Patient can be discharged from surgical standpoint -Patient scheduled for follow-up appointment in [address] Garcia -Continue regular diet -Continue pain medication as needed Physician Cold Working Inspector note has been reviewed by physician. Signing provider agrees with the documented findings, assessment, and plan of care. Objective - Vital Signs Vital signs: Vital Signs Temp 98.1 F 01/17/21 07:18 Pulse 76 01/17/21 07:18 Resp 17 01/17/21 07:18 BP 125/77 01/17/21 07:18 Pulse Ox 92 L 01/17/21 07:18 Intake & Output 01/16/21 01/17/21 01/17/21 18:59 06:59 18:59 Intake Total 1450 Output Total 30 Balance 1420 Intake: IV 1450 Output: Estimated Blood Loss 30 Other: # Voids 5 5 # Bowel Movements 0 - Labs CBC & Chem 7: 01/17/21 06:28 01/17/21 06:28 Labs: Abnormal Lab Results - Last 24 Hours (Table) 01/16/21 01/16/21 01/17/21 Range/Units 10:45 10:45 06:28 WBC 17.0 H (3.8-10.6) k/uL RBC 3.69 L (4.30-5.90) m/uL MCV 114.4 H (80.0-100.0) fL MCH 38.1 H (25.0-35.0) pg Neutrophils # 13.4 H 14.4 H (1.3-7.7) k/uL Lymphocytes # 0.9 L (1.0-4.8) k/uL Macrocytosis Marked A Sodium 136 L (137-145) mmol/L BUN 3 L (9-20) mg/dL Creatinine 0.60 L (0.66-1.25) mg/dL Glucose 117 H (74-99) mg/dL Calcium 8.3 L (8.4-10.2) mg/dL Total Bilirubin 20.1 H* (0.2-1.3) mg/dL AST 146 H (17-59) U/L ALT 57 H (4-49) U/L Alkaline Phosphatase 235 H (38-126) U/L Total Protein (6.3-8.2) g/dL Albumin 2.9 L (3.5-5.0) g/dL 01/17/ Range/Units 06:28 WBC (3.8-10.6) k/uL RBC (4.30-5.90) m/uL MCV (80.0-100.0) fL MCH (25.0-35.0) pg Neutrophils # (1.3-7.7) k/uL Lymphocytes # (1.0-4.8) k/uL Macrocytosis Sodium (137-145) mmol/L BUN 3 L (9-20) mg/dL Creatinine 0.60 L (0.66-1.25) mg/dL Glucose 101 H (74-99) mg/dL Calcium (8.4-10.2) mg/dL Total Bilirubin 20.2 H* (0.2-1.3) mg/dL AST 135 H (17-59) U/L ALT 62 H (4-49) U/L Alkaline Phosphatase 234 H (38-126) U/L Total Protein 6.0 L (6.3-8.2) g/dL Albumin 2.5 L (3.5-5.0) g/dL
[2021-01-17] MEDS: SPIRONOLACTONE-HCTZ 25-25MG 1 EACH TAB PO SCH ×2 (11:45→22:31)
[2021-01-17] MEDS: FUROSEMIDE 40 MG TAB PO SCH (11:45)
[2021-01-17 12:53] LABS: INR 1.6 (<1.2); Prothrombin Time 15.7 sec (9.0-12.0)
[2021-01-17 13:46] VITALS: BMI 28.5
[2021-01-17] MEDS: HYDROcodone/APAP 5-325MG 1 EACH TAB PO PRN ×2 (14:52→22:30)
--- NOTE | 2021-01-17 16:01 | PN ---
PROGRESS NOTE CHIEF COMPLAINT: Status post cholecystectomy. HISTORY OF PRESENT ILLNESS: This gentleman is doing fairly well. He does have ascitic fluid leaking through his incisions. He has had no fever, chills, abdominal pain, etc. He still has quite a bit of ascites. There is no mention in the operative note of the condition of his liver, amount of ascites, etc. There is also concern because his bilirubin is not dropping significantly. It is unclear at this point how much of this is due to biliary disease versus hepatocellular disease. PHYSICAL EXAMINATION: Chest is clear. Cardiac exam is normal. The abdomen is distended and there is yellowish clear fluid leaking onto the dressings from the cholecystectomy incisions. IMPRESSION: 1. Status post cholecystectomy. 2. Choledocholithiasis. 3. Chronic alcoholism. 4. Cirrhosis. 5. Ascites. PLAN: Plan is to try instituting diuretic management to see if this will help control the ascites. MMODL / IJN: [id number] /
[2021-01-18] MEDS: PIPERACILLIN-TAZOBACTAM 3.375 GM in SODIUM CHLORIDE 0.9% 100 ML IVPB SCH ×3 (00:41→14:48)
[2021-01-18] MEDS: SODIUM CHLORIDE 0.9% 1,000 ML IV SCH ×2 (00:44→14:51)
[2021-01-18] MEDS: HYDROcodone/APAP 5-325MG 1 EACH TAB PO PRN ×3 (05:52→23:00)
[2021-01-18] MEDS: LORATADINE 10 MG TAB PO SCH (08:01)
[2021-01-18] MEDS: SPIRONOLACTONE-HCTZ 25-25MG 1 EACH TAB PO SCH ×2 (08:01→23:00)
[2021-01-18] MEDS: THIAMINE 100 MG TAB PO SCH ×2 (08:01→14:48)
[2021-01-18] MEDS: FUROSEMIDE 40 MG TAB PO SCH (08:01)
[2021-01-18] MEDS: ENOXAPARIN 40 MG/0.4 ML SYRINGE SQ SCH (08:01)
[2021-01-18 08:43] LABS: Basophils # (A) 0.1 k/uL (0-0.2); Basophils % (A) 1 %; Eosinophils # (A) 0.3 k/uL (0-0.7); Eosinophils % (A) 2 %; HCT 45.4 % (39.0-53.0); Lymphocytes # (A) 2.1 k/uL (1.0-4.8); Lymphocytes % (A) 11 %; MCH 36.9 pg (25.0-35.0); MCHC 33.1 g/dL (31.0-37.0); MCV 111.7 fL (80.0-100.0); Macrocytosis Marked; Mean Platelet Volume 8.6; Monocytes # (A) 0.8 k/uL (0-1.0); Monocytes % (A) 4 %; Neutrophils % (A) 82 %; Platelet Count 363 k/uL (150-450); RBC 4.07 m/uL (4.30-5.90); RDW 12.7 % (11.5-15.5); WBC 19.6 k/uL (3.8-10.6)
[2021-01-18 09:10] LABS: ALT 76 U/L (4-49); AST 166 U/L (17-59); African American GFR (CKD) >90 (>60 ml/min/1.73 sqM); Albumin 2.9 g/dL (3.5-5.0); Albumin/Globulin Ratio 0.8; Alkaline Phosphatase 311 U/L (38-126); Anion Gap 11 mmol/L; Blood Urea Nitrogen 4 mg/dL (9-20); Calcium 8.7 mg/dL (8.4-10.2); Carbon Dioxide 27 mmol/L (22-30); Chloride 94 mmol/L (98-107); Globulin 3.8 g/dL; Glucose 97 mg/dL (74-99); Non-African American GFR(CKD) >90 (>60 ml/min/1.73 sqM); Potassium 3.7 mmol/L (3.5-5.1); Sodium 132 mmol/L (137-145); Total Protein 6.7 g/dL (6.3-8.2)
[2021-01-18 09:25] LABS: Total Bilirubin 26.2 mg/dL (0.2-1.3)
--- NOTE | 2021-01-18 11:03 | P.PN ---
Subjective Progress Note Date: 01/18/21 CHIEF COMPLAINT: Jaundice HISTORY OF PRESENT ILLNESS: Patient is status post laparoscopic cholecystectomy for cholecystitis and cholelithiasis. Postop day #2. His pain is controlled. Denies any nausea or vomiting. He is having flatus. Tolerating diet. Afebrile. He did have some oozing of blood at incision sites. This has improved. Patient is total bilirubin and LFTs are increasing. Total bilirubin did go up from 20.2-26.2 AST 166 ALT 76 and alk phos 133. PHYSICAL EXAM: VITAL SIGNS: Reviewed. GENERAL: Well-developed in no acute distress. HEENT: Positive for sclera icterus. Extraocular movements grossly intact. Moist buccal mucosa. Head is atraumatic, normocephalic. ABDOMEN: Soft. Nondistended. Nontender. NEUROLOGIC: Alert and oriented. Cranial nerves II through XII grossly intact. Skin: Jaundiced ASSESSMENT: 1. Cholecystitis and cholelithiasis status post laparoscopic cholecystectomy 2. Choledocholithiasis 3. Jaundice and hyperbilirubinemia 4. Biliary obstruction 5. Alcohol abuse 6. Alcohol hepatitis PLAN: -Due to patient's increase in total bilirubin and LFTs would recommend to keep patient in hospital for further observation and repeat labs in a.m. -Continue regular diet -Continue pain medication as needed Physician Inspector Government Property note has been reviewed by physician. Signing provider agrees with the documented findings, assessment, and plan of care. Objective - Vital Signs Vital signs: Vital Signs Temp 98.7 F 01/18/21 08:44 Pulse 87 01/18/21 08:44 Resp 18 01/18/21 08:44 BP 111/71 01/18/21 08:44 Pulse Ox 91 L 01/18/21 08:44 Intake & Output 01/17/21 01/18/21 01/18/21 18:59 06:59 18:59 Intake Total 480 Balance 480 Weight 103.419 kg Intake: Oral 480 Other: Voiding Method Toilet # Voids 4 2 # Bowel Movements 1 - Labs CBC & Chem 7: 01/18/21 08:18 01/18/21 08:18 Labs: Abnormal Lab Results - Last 24 Hours (Table) 01/17/21 01/18/21 01/18/21 Range/Units 10:34 08:18 08:18 WBC 19.6 H (3.8-10.6) k/uL RBC 4.07 L (4.30-5.90) m/uL MCV 111.7 H (80.0-100.0) fL MCH 36.9 H (25.0-35.0) pg Neutrophils # 16.0 H (1.3-7.7) k/uL Macrocytosis Marked A PT 15.7 H (9.0-12.0) sec INR 1.6 H (<1.2) Sodium 132 L (137-145) mmol/L Chloride 94 L (98-107) mmol/L BUN 4 L (9-20) mg/dL Total Bilirubin 26.2 H* (0.2-1.3) mg/dL AST 166 H (17-59) U/L ALT 76 H (4-49) U/L Alkaline Phosphatase 311 H (38-126) U/L Albumin 2.9 L (3.5-5.0) g/dL
--- NOTE | 2021-01-18 12:59 | PN ---
PROGRESS NOTE CHIEF COMPLAINT: Status post ERCP for choledocholithiasis and cholecystectomy. HISTORY OF PRESENT ILLNESS: This gentleman seems to be feeling fine, but his numbers are concerning. His bilirubin has gone up and his white count risen to 19,000. He has had no fever, no chills, no significant abdominal pain, etc. It seems as though the ascitic drainage through the upper incision has slowed. PHYSICAL EXAM: He remains jaundiced. He remains awake and alert. Head, ears, eyes, nose and mouth are normal. Chest is clear. Cardiac exam is normal and the abdomen is distended with ascites. It might be slightly less distended yesterday. The dressing over the superior incision which is changed and it dry. IMPRESSION: 1. Status post ERCP and sphincterotomy with removal of numerous common duct stones. 2. Status post cholecystectomy. 3. Chronic alcoholism. 4. Cirrhosis. 5. Ascites. 6. Rising white count. PLAN: Case was discussed with surgical case preparer and liner. There was difficulty getting a GI evaluation. Under the circumstances, this gentleman should probably have repeat ERCP to see if there are more stones impacted at the ampulla of Vater. It is possible that the safest and best approach to management would be to transfer him to a tertiary hospital. This will be discussed with Surgery. MMODL / IJN: [id number] /
[2021-01-19] MEDS: PIPERACILLIN-TAZOBACTAM 3.375 GM in SODIUM CHLORIDE 0.9% 100 ML IVPB SCH ×4 (01:21→23:38)
[2021-01-19] MEDS: SODIUM CHLORIDE 0.9% 1,000 ML IV SCH ×2 (01:23→07:27)
[2021-01-19] MEDS: FUROSEMIDE 40 MG TAB PO SCH (07:25)
[2021-01-19] MEDS: THIAMINE 100 MG TAB PO SCH ×2 (07:26→17:24)
[2021-01-19] MEDS: LORATADINE 10 MG TAB PO SCH (07:26)
[2021-01-19] MEDS: SPIRONOLACTONE-HCTZ 25-25MG 1 EACH TAB PO SCH ×2 (07:26→21:02)
[2021-01-19] MEDS: ENOXAPARIN 40 MG/0.4 ML SYRINGE SQ SCH (07:26)
[2021-01-19] MEDS: HYDROcodone/APAP 5-325MG 1 EACH TAB PO PRN ×3 (07:34→23:16)
[2021-01-19 07:59] LABS: ALT 62 U/L (4-49); AST 133 U/L (17-59); African American GFR (CKD) >90 (>60 ml/min/1.73 sqM); Albumin 2.8 g/dL (3.5-5.0); Albumin/Globulin Ratio 0.8; Alkaline Phosphatase 283 U/L (38-126); Anion Gap 10 mmol/L; Blood Urea Nitrogen 5 mg/dL (9-20); Calcium 8.5 mg/dL (8.4-10.2); Carbon Dioxide 29 mmol/L (22-30); Chloride 92 mmol/L (98-107); Globulin 3.5 g/dL; Glucose 84 mg/dL (74-99); Non-African American GFR(CKD) >90 (>60 ml/min/1.73 sqM); Potassium 3.3 mmol/L (3.5-5.1); Sodium 131 mmol/L (137-145); Total Protein 6.3 g/dL (6.3-8.2)
[2021-01-19 11:12] LABS: Basophils # (A) 0.15 X 10*3/uL (0.00-0.10); Basophils % (A) 0.9 %; Eosinophils # (A) 0.24 X 10*3/uL (0.04-0.35); Eosinophils % (A) 1.5 %; HCT 38.1 % (39.6-50.0); HGB 13.4 g/dL (13.0-17.0); Lymphocytes # (A) 1.83 X 10*3/uL (0.90-5.00); Lymphocytes % (A) 11.4 %; MCH 37.3 pg (27.0-32.0); MCHC 35.2 g/dL (32.0-37.0); MCV 106.1 fL (80.0-97.0); Mean Platelet Volume 11.6 fL (9.5-12.2); Monocytes # (A) 1.19 X 10*3/uL (0.20-1.00); Monocytes % (A) 7.4 %; Neutrophils % (A) 78.3 %; Platelet Count 281 X 10*3/uL (140-440); RBC 3.59 X 10*6/uL (4.40-5.60); RDW 14.5 % (11.5-14.5); WBC 16.09 X 10*3/uL (4.50-10.00)
--- NOTE | 2021-01-19 11:29 | P.PN ---
Subjective Progress Note Date: 01/19/21 CHIEF COMPLAINT: Jaundice HISTORY OF PRESENT ILLNESS: Patient is status post laparoscopic cholecystectomy for cholecystitis and cholelithiasis. Postop day #3. Patient denies any abdominal pain. Denies any nausea or vomiting. Tolerating diet. He did have a bowel movement and flatus. He is awaiting transfer to [facility] due to the tenuous elevated total bilirubin and LFTs. Afebrile. Total bilirubin 25 AST 133 ALT 62 alk phos 283 sodium 131 potassium 3.3. CBC pending PHYSICAL EXAM: VITAL SIGNS: Reviewed. GENERAL: Well-developed in no acute distress. HEENT: Positive for sclera icterus. Extraocular movements grossly intact. Moist buccal mucosa. Head is atraumatic, normocephalic. ABDOMEN: Soft. Nondistended. Nontender. NEUROLOGIC: Alert and oriented. Cranial nerves II through XII grossly intact. Skin: Jaundiced ASSESSMENT: 1. Cholecystitis and cholelithiasis status post laparoscopic cholecystectomy 2. Choledocholithiasis 3. Jaundice and hyperbilirubinemia 4. Biliary obstruction 5. Alcohol abuse 6. Alcohol hepatitis PLAN: -Recommend that patient is transferred to [facility] due to continued elevated total bilirubin and LFTs -Continue regular diet -Continue pain medication as needed Physician Allergist note has been reviewed by physician. Signing provider agrees with the documented findings, assessment, and plan of care. Objective - Vital Signs Vital signs: Vital Signs Temp 99.0 F 01/19/21 08:02 Pulse 84 01/19/21 08:02 Resp 18 01/19/21 08:02 BP 110/67 01/19/21 08:02 Pulse Ox 92 L 01/19/21 08:02 Intake & Output 01/18/21 01/19/21 01/19/21 18:59 06:59 18:59 Intake Total 1080 Balance 1080 Intake: Oral 1080 Other: # Voids 4 2 1 - Labs CBC & Chem 7: 01/18/21 08:18 01/19/21 06:46 Labs: Abnormal Lab Results - Last 24 Hours (Table) 01/19/21 Range/Units 06:46 Sodium 131 L (137-145) mmol/L Potassium 3.3 L (3.5-5.1) mmol/L Chloride 92 L (98-107) mmol/L BUN 5 L (9-20) mg/dL Total Bilirubin 25.0 H* (0.2-1.3) mg/dL AST 133 H (17-59) U/L ALT 62 H (4-49) U/L Alkaline Phosphatase 283 H (38-126) U/L Albumin 2.8 L (3.5-5.0) g/dL
--- NOTE | 2021-01-19 18:32 | PN ---
PROGRESS NOTE DATE OF SERVICE: 01/19/2021 CHIEF COMPLAINT: Obstructive jaundice. HISTORY OF PRESENT ILLNESS: This gentleman has been stable and awaits transfer to [facility] when a bed is available. REVIEW OF SYSTEMS: He denies any pain, fever, chills, etc. PHYSICAL EXAMINATION: He still remains jaundiced. Chest is clear. Cardiac exam is normal. The abdomen is protuberant. IMPRESSION: 1. Obstructive jaundice. 2. Choledocholithiasis. 3. Chronic alcoholism. 4. Cirrhosis. 5. Ascites. 6. Leukocytosis. PLAN: No change in program. Await transfer to [facility]. MMODL / IJN: [id number] /
[2021-01-19] MEDS: POTASSIUM CHLORIDE ER 20 MEQ TAB.ER PO SCH (23:19)
[2021-01-20] MEDS: ENOXAPARIN 40 MG/0.4 ML SYRINGE SQ SCH (08:50)
[2021-01-20] MEDS: LORATADINE 10 MG TAB PO SCH (08:51)
[2021-01-20] MEDS: POTASSIUM CHLORIDE ER 20 MEQ TAB.ER PO SCH ×3 (08:51→21:04)
[2021-01-20] MEDS: SPIRONOLACTONE-HCTZ 25-25MG 1 EACH TAB PO SCH ×2 (08:51→21:04)
[2021-01-20] MEDS: FUROSEMIDE 40 MG TAB PO SCH (08:51)
[2021-01-20] MEDS: THIAMINE 100 MG TAB PO SCH ×2 (08:51→15:19)
[2021-01-20] MEDS: PIPERACILLIN-TAZOBACTAM 3.375 GM in SODIUM CHLORIDE 0.9% 100 ML IVPB SCH ×2 (08:51→15:19)
[2021-01-20 08:53] LABS: Basophils # (A) 0.2 k/uL (0-0.2); Basophils % (A) 1 %; Eosinophils # (A) 0.3 k/uL (0-0.7); Eosinophils % (A) 2 %; HCT 41.4 % (39.0-53.0); HGB 14.8 gm/dL (13.0-17.5); Lymphocytes % (A) 11 %; MCHC 35.7 g/dL (31.0-37.0); MCV 109.3 fL (80.0-100.0); Macrocytosis Marked; Mean Platelet Volume 8.9; Monocytes # (A) 0.8 k/uL (0-1.0); Monocytes % (A) 4 %; Neutrophils # (A) 14.6 k/uL (1.3-7.7); Neutrophils % (A) 81 %; Platelet Count 291 k/uL (150-450); RBC 3.79 m/uL (4.30-5.90); RDW 13.3 % (11.5-15.5); WBC 18.1 k/uL (3.8-10.6)
[2021-01-20] MEDS: SODIUM CHLORIDE 0.9% 1,000 ML IV SCH ×2 (08:59→15:20)
[2021-01-20 09:04] LABS: ALT 56 U/L (4-49); AST 137 U/L (17-59); African American GFR (CKD) >90 (>60 ml/min/1.73 sqM); Albumin/Globulin Ratio 0.8; Alkaline Phosphatase 299 U/L (38-126); Anion Gap 8 mmol/L; Blood Urea Nitrogen 5 mg/dL (9-20); Calcium 8.9 mg/dL (8.4-10.2); Carbon Dioxide 27 mmol/L (22-30); Chloride 95 mmol/L (98-107); Globulin 3.8 g/dL; Glucose 92 mg/dL (74-99); Non-African American GFR(CKD) >90 (>60 ml/min/1.73 sqM); Potassium 3.8 mmol/L (3.5-5.1); Sodium 130 mmol/L (137-145); Total Protein 6.8 g/dL (6.3-8.2)
--- NOTE | 2021-01-20 13:51 | P.PN ---
Subjective Progress Note Date: 01/20/21 CHIEF COMPLAINT: Jaundice HISTORY OF PRESENT ILLNESS: Patient is status post laparoscopic cholecystectomy for cholecystitis and cholelithiasis. Postop day #4. Patient reports his abdominal pain is controlled. He is only requiring 1-2 [place] during the day. Denies any nausea or vomiting. Tolerating diet. He did have a bowel movement and flatus. He is awaiting transfer to [facility] due to the continuous elevated total bilirubin and LFTs. Afebrile. WBC is elevated at 18.1 hemoglobin 14.8 total bilirubin level is pending AST is 137 ALT is 56 and alk phos is 299 PHYSICAL EXAM: VITAL SIGNS: Reviewed. GENERAL: Well-developed in no acute distress. HEENT: Positive for sclera icterus. Extraocular movements grossly intact. Moist buccal mucosa. Head is atraumatic, normocephalic. ABDOMEN: Soft. Nondistended. Nontender. Incision sites clean dry and intact NEUROLOGIC: Alert and oriented. Cranial nerves II through XII grossly intact. Skin: Jaundiced ASSESSMENT: 1. Cholecystitis and cholelithiasis status post laparoscopic cholecystectomy 2. Choledocholithiasis 3. Jaundice and hyperbilirubinemia 4. Biliary obstruction 5. Alcohol abuse 6. Alcohol hepatitis PLAN: -Recommend that patient is transferred to [facility] due to continued elevated total bilirubin and LFTs -Continue regular diet -Continue pain medication as needed Physician Corral Boss note has been reviewed by physician. Signing provider agrees with the documented findings, assessment, and plan of care. Objective - Vital Signs Vital signs: Vital Signs Temp 98.2 F 01/20/21 08:00 Pulse 81 01/20/21 08:00 Resp 18 01/20/21 08:00 BP 111/68 01/20/21 08:00 Pulse Ox 91 L 01/20/21 08:00 Intake & Output 01/19/21 01/20/21 01/20/21 18:59 06:59 18:59 Other: Voiding Method Toilet # Voids 1 3 - Labs CBC & Chem 7: 01/20/21 08:19 01/20/21 08:19 Labs: Abnormal Lab Results - Last 24 Hours (Table) 01/20/21 01/20/21 Range/Units 08:19 08:19 WBC 18.1 H (3.8-10.6) k/uL RBC 3.79 L (4.30-5.90) m/uL MCV 109.3 H (80.0-100.0) fL MCH 39.0 H (25.0-35.0) pg Neutrophils # 14.6 H (1.3-7.7) k/uL Macrocytosis Marked A Sodium 130 L (137-145) mmol/L Chloride 95 L (98-107) mmol/L BUN 5 L (9-20) mg/dL Creatinine 0.60 L (0.66-1.25) mg/dL AST 137 H (17-59) U/L ALT 56 H (4-49) U/L Alkaline Phosphatase 299 H (38-126) U/L Albumin 3.0 L (3.5-5.0) g/dL
[2021-01-20] MEDS: HYDROcodone/APAP 5-325MG 1 EACH TAB PO PRN (15:18)
[2021-01-20 18:11] LABS: Total Bilirubin 25.6 mg/dL (0.2-1.3)
[2021-01-20] MEDS ORDERED: POTASSIUM CHLORIDE ER 20 MEQ TAB.ER PO SCH (22:14)
[2021-01-21] MEDS: PIPERACILLIN-TAZOBACTAM 3.375 GM in SODIUM CHLORIDE 0.9% 100 ML IVPB SCH ×4 (00:30→23:42)
[2021-01-21] MEDS: HYDROcodone/APAP 5-325MG 1 EACH TAB PO PRN ×2 (00:33→23:42)
[2021-01-21] MEDS: SODIUM CHLORIDE 0.9% 1,000 ML IV SCH ×2 (07:39→17:01)
[2021-01-21] MEDS: ENOXAPARIN 40 MG/0.4 ML SYRINGE SQ SCH (07:45)
[2021-01-21] MEDS: FUROSEMIDE 40 MG TAB PO SCH (07:46)
[2021-01-21] MEDS: LORATADINE 10 MG TAB PO SCH (07:46)
[2021-01-21] MEDS: THIAMINE 100 MG TAB PO SCH ×2 (07:46→17:01)
[2021-01-21] MEDS: SPIRONOLACTONE-HCTZ 25-25MG 1 EACH TAB PO SCH ×2 (07:46→21:37)
[2021-01-21] MEDS: POTASSIUM CHLORIDE ER 20 MEQ TAB.ER PO SCH ×3 (07:46→21:37)
[2021-01-21 08:53] LABS: ALT 52 U/L (4-49); AST 135 U/L (17-59); African American GFR (CKD) >90 (>60 ml/min/1.73 sqM); Albumin 3.1 g/dL (3.5-5.0); Albumin/Globulin Ratio 0.8; Alkaline Phosphatase 294 U/L (38-126); Anion Gap 10 mmol/L; Blood Urea Nitrogen 6 mg/dL (9-20); Carbon Dioxide 29 mmol/L (22-30); Chloride 91 mmol/L (98-107); Globulin 3.9 g/dL; Glucose 88 mg/dL (74-99); Non-African American GFR(CKD) >90 (>60 ml/min/1.73 sqM); Potassium 3.7 mmol/L (3.5-5.1); Sodium 130 mmol/L (137-145)
[2021-01-21 09:09] LABS: Total Bilirubin 25.6 mg/dL (0.2-1.3)
--- NOTE | 2021-01-21 12:42 | P.PN ---
Progress Note - Text Progress Note Date: 01/21/21 Patient states he feels well. He denies any significant abdominal pain. He still obviously jaundiced. His bilirubin today is 25. On exam vitals are stable. Abdomen soft. Hyperbilirubinemia. This most likely is due to some underlying liver dysfunction. Patient is awaiting transfer to [facility] for possible ERCP for possible retained common bile duct stone.
--- NOTE | 2021-01-21 16:24 | PN ---
PROGRESS NOTE DATE OF SERVICE: 01/20/2021 CHIEF COMPLAINT: Obstructive jaundice. HISTORY OF PRESENT ILLNESS: This gentleman's condition remains the same. Bilirubin is still in the 20s and we are waiting for a bed at [facility]. PHYSICAL EXAMINATION: He is awake and alert. He remains jaundiced. Abdomen is a little bit less distended on the diuretics. IMPRESSION: 1. Obstructive jaundice. 2. Cirrhosis. 3. Ascites. 4. Alcoholism. PLAN: Await transfer to [facility]. MMJACOB / SKINNYN: [id number] /
[2021-01-22] MEDS: PIPERACILLIN-TAZOBACTAM 3.375 GM in SODIUM CHLORIDE 0.9% 100 ML IVPB SCH ×3 (07:51→22:56)
[2021-01-22] MEDS: SODIUM CHLORIDE 0.9% 1,000 ML IV SCH ×2 (07:51→22:25)
[2021-01-22] MEDS: ENOXAPARIN 40 MG/0.4 ML SYRINGE SQ SCH (07:53)
[2021-01-22] MEDS: FUROSEMIDE 40 MG TAB PO SCH (07:54)
[2021-01-22] MEDS: POTASSIUM CHLORIDE ER 20 MEQ TAB.ER PO SCH ×3 (07:54→21:05)
[2021-01-22] MEDS: SPIRONOLACTONE-HCTZ 25-25MG 1 EACH TAB PO SCH ×2 (07:54→21:05)
[2021-01-22] MEDS: THIAMINE 100 MG TAB PO SCH ×2 (07:54→17:02)
[2021-01-22] MEDS: LORATADINE 10 MG TAB PO SCH (07:54)
--- NOTE | 2021-01-22 12:25 | P.PN ---
Progress Note - Text Progress Note Date: 01/22/21 Patient feels well. He is clinically unchanged. He is still remains jaundice. On exam vessels are stable. Abdomen soft. There is minimal tenderness were quadrant. Status post choledocholithiasis with some evidence of hepatic failure due to EtOH abuse. The patient will need repeat ERCP. Dr. Crowell is back on service tomorrow. We will reconsult her for possible ERCP.
[2021-01-22] MEDS: HYDROcodone/APAP 5-325MG 1 EACH TAB PO PRN ×2 (15:51→22:56)
[2021-01-23] MEDS: PIPERACILLIN-TAZOBACTAM 3.375 GM in SODIUM CHLORIDE 0.9% 100 ML IVPB SCH ×2 (07:37→16:22)
[2021-01-23] MEDS: ENOXAPARIN 40 MG/0.4 ML SYRINGE SQ SCH (07:38)
[2021-01-23] MEDS: THIAMINE 100 MG TAB PO SCH ×2 (07:38→16:22)
[2021-01-23] MEDS: LORATADINE 10 MG TAB PO SCH (07:38)
[2021-01-23] MEDS: SPIRONOLACTONE-HCTZ 25-25MG 1 EACH TAB PO SCH ×3 (07:38→22:03)
[2021-01-23] MEDS: POTASSIUM CHLORIDE ER 20 MEQ TAB.ER PO SCH ×3 (07:38→22:02)
[2021-01-23] MEDS: FUROSEMIDE 40 MG TAB PO SCH (07:38)
[2021-01-23 10:02] LABS: ALT 46 U/L (4-49); AST 155 U/L (17-59); African American GFR (CKD) >90 (>60 ml/min/1.73 sqM); Albumin 3.1 g/dL (3.5-5.0); Albumin/Globulin Ratio 0.8; Alkaline Phosphatase 306 U/L (38-126); Anion Gap 10 mmol/L; Blood Urea Nitrogen 7 mg/dL (9-20); Calcium 8.7 mg/dL (8.4-10.2); Carbon Dioxide 26 mmol/L (22-30); Chloride 91 mmol/L (98-107); Globulin 3.9 g/dL; Glucose 95 mg/dL (74-99); Non-African American GFR(CKD) >90 (>60 ml/min/1.73 sqM); Potassium 3.9 mmol/L (3.5-5.1); Sodium 127 mmol/L (137-145)
[2021-01-23 10:28] LABS: INR 1.5 (<1.2); Prothrombin Time 14.9 sec (9.0-12.0)
--- NOTE | 2021-01-23 10:58 | P.PN ---
Subjective Progress Note Date: 01/23/21 CHIEF COMPLAINT: Jaundice HISTORY OF PRESENT ILLNESS: Patient is status post laparoscopic cholecystectomy on 01/16/2021 for cholecystitis and cholelithiasis. Patient is awaiting transfer to [facility]. Patient seen by GI service this morning they're planning to proceed with repeat ERCP tomorrow. Patient reports that his pain is controlled. He did have some mild pain in the left upper quadrant now resolved. He is having bowel movements and flatus. Denies any nausea or vomiting. Afebrile. Sodium 127 potassium 3.9 creatinine 0.71 total bilirubin 21 AST 155 ALT 46 alk phos 306 PHYSICAL EXAM: VITAL SIGNS: Reviewed. GENERAL: Well-developed in no acute distress. HEENT: Positive for sclera icterus. Extraocular movements grossly intact. Moist buccal mucosa. Head is atraumatic, normocephalic. ABDOMEN: Soft. Nondistended. Nontender. Incision sites clean dry and intact NEUROLOGIC: Alert and oriented. Cranial nerves II through XII grossly intact. Skin: Jaundiced ASSESSMENT: 1. Acute on chronic Cholecystitis and cholelithiasis status post laparoscopic cholecystectomy 2. Choledocholithiasis 3. Jaundice and hyperbilirubinemia 4. Alcohol abuse 5. Alcohol hepatitis PLAN: -GI service planning proceed with a repeat ERCP tomorrow -Recommend that patient is transferred to [facility] due to continued elevated total bilirubin and LFTs -Continue regular diet -Continue pain medication as needed Physician Director Of Education And Training note has been reviewed by physician. Signing provider agrees with the documented findings, assessment, and plan of care. Objective - Vital Signs Vital signs: Vital Signs Temp 98.4 F 01/23/21 08:00 Pulse 89 01/23/21 08:00 Resp 16 01/23/21 08:00 BP 114/77 01/23/21 08:00 Pulse Ox 95 01/23/21 08:00 Intake & Output 01/22/21 01/23/21 01/23/21 18:59 06:59 18:59 Intake Total 500 236 Balance 500 236 Intake: IV 500 Piperacillin-Tazobactam 3 200 .375 gm In Sodium Chloride 0.9% 100 ml @ 25 mls/hr IVPB Q8HR YECENIA Rx# :[id number] Sodium Chloride 0.9% 1, 300 000 ml @ 75 mls/hr IV . [id number] YECENIA Rx#:[id number] Oral 236 Other: Voiding Method Toilet # Voids 2 - Labs CBC & Chem 7: 01/20/21 08:19 01/23/21 08:50 Labs: Abnormal Lab Results - Last 24 Hours (Table) 01/23/21 01/23/21 Range/Units 08:50 09:38 PT 14.9 H (9.0-12.0) sec INR 1.5 H (<1.2) Sodium 127 L (137-145) mmol/L Chloride 91 L (98-107) mmol/L BUN 7 L (9-20) mg/dL Total Bilirubin 21.0 H* (0.2-1.3) mg/dL AST 155 H (17-59) U/L Alkaline Phosphatase 306 H (38-126) U/L Albumin 3.1 L (3.5-5.0) g/dL
[2021-01-23] MEDS: SODIUM CHLORIDE 0.9% 1,000 ML IV SCH (11:41)
[2021-01-23 12:22] LABS: Basophils # (A) 0.2 k/uL (0-0.2); Basophils % (A) 1 %; Eosinophils # (A) 0.3 k/uL (0-0.7); Eosinophils % (A) 1 %; HCT 42.3 % (39.0-53.0); HGB 14.8 gm/dL (13.0-17.5); Lymphocytes # (A) 1.8 k/uL (1.0-4.8); Lymphocytes % (A) 9 %; MCH 38.7 pg (25.0-35.0); MCV 110.4 fL (80.0-100.0); Macrocytosis Marked; Mean Platelet Volume 10.7; Monocytes # (A) 0.8 k/uL (0-1.0); Monocytes % (A) 4 %; Neutrophils # (A) 15.8 k/uL (1.3-7.7); Neutrophils % (A) 83 %; Platelet Count 318 k/uL (150-450); RBC 3.83 m/uL (4.30-5.90); RDW 12.9 % (11.5-15.5); WBC 19.1 k/uL (3.8-10.6)
[2021-01-23] MEDS ORDERED: PHYTONADIONE 10 MG in SODIUM CHLORIDE 0.9% 50 ML IVPB STA (13:32)
--- NOTE | 2021-01-23 14:39 | P.PN ---
Subjective Progress Note Date: 01/23/21 Principal diagnosis: Hyperbilirubinemia, choledocholithiasis This is a 50-year-old male who had presented to the emergency department approximately 2 weeks ago with jaundice. Patient has a history of heavy alcohol use and was drinking up to have pain to a pint a day. He had no previous history of underlying liver disease to his knowledge. He had evidence of choledocholithiasis and underwent ERCP on 01/13/2021 with removal of multiple stones. Gen. surgery is on consult, and the patient underwent cholecystectomy on 01/16/2021. There was no gastroenterology available after 01/13/2021 until today. The patient has continued to be jaundiced with elevated bilirubin in the 20s. Yesterday his total bilirubin was 25.6 AST 135 ALT 52 alkaline phosphatase 294. He had repeat labs today with a total bilirubin of 21 AST 155 ALT 46 alkaline phosphatase 306. He is currently awaiting a transfer to [facility] for further evaluation and ERCP since there was no gastroenterology in- house. He is denying any abdominal pain, nausea, or vomiting. His been having bowel movements which he states are now almost normal. He currently remains on Zosyn. Objective - Vital Signs Vital signs: Vital Signs Temp 98.4 F 01/23/21 08:00 Pulse 89 01/23/21 08:00 Resp 16 01/23/21 08:00 BP 114/77 01/23/21 08:00 Pulse Ox 95 01/23/21 08:00 Intake & Output 01/22/21 01/23/21 01/23/21 18:59 06:59 18:59 Intake Total 500 Balance 500 Intake: IV 500 Piperacillin-Tazobactam 3 200 .375 gm In Sodium Chloride 0.9% 100 ml @ 25 mls/hr IVPB Q8HR [facility] Rx# :[id number] Sodium Chloride 0.9% 1, 300 000 ml @ 75 mls/hr IV . [id number] YECENIA Rx#:[id number] Other: Voiding Method Toilet # Voids 2 - Exam General appearance: The patient is alert, oriented, appears in no acute distress. HET: Head is normocephalic and atraumatic. Conjunctiva pink. Sclera deeply icteric. Neck: Supple without lymphadenopathy. Abdomen: Soft, nontender, nondistended with bowel sounds. No guarding or rigidity. Extremities: Normal skin color and turgor. No pedal edema Skin: No rashes, jaundice. Neurological: No focal deficits. Alert and oriented 3. - Labs CBC & Chem 7: 01/23/21 08:50 01/23/21 08:50 Assessment and Plan (1) Hyperbilirubinemia Narrative/Plan: 50-year-old male with no significant past medical history other than alcohol abuse for the past 20 years. Patient states he had been drinking 6 date. Kishore along with half a pint a day. He states about 2 months ago he started to cut back. He presented to the emergency department for evaluation of the ongoing of his skin. He states approximately 2 weeks ago he started noticing his skin turning yellow which has been worsening over the last few days. He also states he has been having dark urine, abdominal bloating and occasional sharp pains. He denies any nausea or vomiting. He's had no previous EGD or colonoscopy. Denies any previous history of liver disease, hepatitis, pancreatitis, or known gallbladder disease. On admission he was noted to have elevated LFTs, leukocytosis. Admitting labs WBC 14.9 hemoglobin 15 hematocrit 45 platelet count 365 Biju an INR 1.4 total bilirubin 26.3 AST [id number] a 64 alk phos 298 amylase 55 lipase 203. Acute hepatitis panel was nonreactive. Patient underwent ultrasound of the abdomen showing hepatic biliary dilation with mild fatty infiltration and cholelithiasis. MRI/MRCP of the liver is ordered per primary care. Labs and patient's history is consistent with acute alcoholic hepatitis. However biliary obstruction needs to be considered as well. MRCP ordered and reviewed within the impression stating approximately 15 stones in the biliary system outside the cystic duct extending to the central intrahepatic ducts. No intrahepatic biliary dilation. Mild extrahepatic biliary dilation. Additional multiple small calculi within the gallbladder without MRI evidence for acute cholecystitis. Patient underwent ERCP on 01/13 with findings of multiple stones status post biliary stent enterotomy and balloon stone extraction with 15-20 stones extracted. He then also underwent cholecystectomy on 01/16/2021. He initially had some drop in his bilirubin and LFTs however they have consistently stayed in the mid 20s. He remains jaundice. Plan will be to repeat ERCP tomorrow. Current Visit: Yes Status: Acute Code(s): E80.6 - OTHER DISORDERS OF BILIRUBIN METABOLISM SNOMED Code(s): 46696032 (2) Choledocholithiasis Current Visit: Yes Status: Acute Code(s): K80.50 - CALCULUS OF BILE DUCT W/O CHOLANGITIS OR CHOLECYST W/O OBST SNOMED Code(s): 133672982 (3) Alcohol abuse Current Visit: Yes Status: Acute Code(s): F10.10 - ALCOHOL ABUSE, UNCOMPLICATED SNOMED Code(s): 27101701 Plan: 1. Nothing by mouth after midnight 2. PT/INR ordered 3. Vitamin K 10 mg IVPB 4. Repeat CBC, INR, CMP tomorrow 5. Will plan ERCP tomorrow, patient is agreeable with plan of care 6. Indomethacin 1 hour prior to ERCP Thank you for this consultation, we will continue to follow. Dr. Manpreet Medrano I agree with the dictator's note, documented as a scribe by Moriah Michelle.
[2021-01-23] MEDS: HYDROcodone/APAP 5-325MG 1 EACH TAB PO PRN ×2 (16:21→23:30)
[2021-01-23] MEDS ORDERED: LACTATED RINGERS 1,000 ML IV SCH (18:30)
[2021-01-24] MEDS: SODIUM CHLORIDE 0.9% 1,000 ML IV SCH ×2 (00:40→13:07)
[2021-01-24] MEDS: PIPERACILLIN-TAZOBACTAM 3.375 GM in SODIUM CHLORIDE 0.9% 100 ML IVPB SCH ×3 (00:52→15:32)
[2021-01-24] MEDS: ENOXAPARIN 40 MG/0.4 ML SYRINGE SQ SCH (07:03)
[2021-01-24] MEDS: FUROSEMIDE 40 MG TAB PO SCH (07:14)
[2021-01-24] MEDS: LORATADINE 10 MG TAB PO SCH (07:14)
[2021-01-24] MEDS: POTASSIUM CHLORIDE ER 20 MEQ TAB.ER PO SCH ×3 (07:14→21:42)
[2021-01-24] MEDS: THIAMINE 100 MG TAB PO SCH ×2 (07:15→15:32)
[2021-01-24] MEDS: HYDROcodone/APAP 5-325MG 1 EACH TAB PO PRN ×3 (07:18→22:47)
[2021-01-24 09:39] LABS: HCT 42.7 % (39.0-53.0); HGB 14.7 gm/dL (13.0-17.5); MCH 37.7 pg (25.0-35.0); MCHC 34.5 g/dL (31.0-37.0); MCV 109.1 fL (80.0-100.0); Mean Platelet Volume 8.7; Platelet Count 310 k/uL (150-450); RBC 3.91 m/uL (4.30-5.90); RDW 13.2 % (11.5-15.5)
[2021-01-24 09:42] LABS: INR 1.3 (<1.2); Prothrombin Time 13.6 sec (9.0-12.0)
[2021-01-24 09:45] LABS: ALT 44 U/L (4-49); AST 144 U/L (17-59); African American GFR (CKD) >90 (>60 ml/min/1.73 sqM); Albumin/Globulin Ratio 0.8; Alkaline Phosphatase 298 U/L (38-126); Anion Gap 10 mmol/L; Blood Urea Nitrogen 7 mg/dL (9-20); Calcium 8.7 mg/dL (8.4-10.2); Carbon Dioxide 23 mmol/L (22-30); Chloride 94 mmol/L (98-107); Globulin 3.9 g/dL; Glucose 103 mg/dL (74-99); Non-African American GFR(CKD) >90 (>60 ml/min/1.73 sqM); Potassium 4.3 mmol/L (3.5-5.1); Sodium 127 mmol/L (137-145); Total Protein 6.9 g/dL (6.3-8.2)
[2021-01-24 09:46] LABS: Macrocytosis Marked
[2021-01-24 09:52] LABS: Total Bilirubin 18.8 mg/dL (0.2-1.3)
--- NOTE | 2021-01-24 11:34 | PN ---
PROGRESS NOTE DATE OF SERVICE: 01/21/2021 CHIEF COMPLAINT: Obstructive jaundice. HISTORY OF PRESENT ILLNESS: There has been no interval change. This patient is feeling fairly well. He gets occasional right-sided pain, but it is mild. We are still waiting for transfer to [facility]. PHYSICAL EXAM: He remains jaundiced. Chest is clear. Cardiac exam is normal and the abdomen is a little bit less distended. IMPRESSION: 1. Obstructive jaundice. 2. Cirrhosis. 3. Chronic alcoholism. PLAN: Wait for a bed to become available at [facility]. MMODL / IJN: [id number] /
--- NOTE | 2021-01-24 11:34 | PN ---
PROGRESS NOTE DATE OF SERVICE: 01/23/2021 CHIEF COMPLAINT: Jaundice. HISTORY OF PRESENT ILLNESS: We are still awaiting word regarding this patient's transfer to [facility]. He remains comfortable. Bilirubin is down slightly at around 20. Alkaline phosphatase is still very high and he is still quite jaundiced. PHYSICAL EXAMINATION: Physical exam is unchanged. He is jaundiced. Abdomen is soft and nontender. Chest is clear. IMPRESSION: 1. Obstructive jaundice. 2. Alcoholism. 3. Cirrhosis. 4. Ascites. PLAN: No change in program at this time. Repeat labs. MMODL / IJN: [id number] /
--- NOTE | 2021-01-24 11:34 | PN ---
PROGRESS NOTE DATE OF SERVICE: 01/21/2021 CHIEF COMPLAINT: Jaundice. HISTORY OF PRESENT ILLNESS: There has been no interval word as to when he will be transferred to [facility]. REVIEW OF SYSTEMS: He has not had any nausea, pain, fever, chills, etc. PHYSICAL EXAMINATION: He is awake and alert. He is still deeply jaundiced. Chest is clear. Cardiac exam is normal. The abdomen is slightly distended. There is less ascites, however. There is no drainage from his incisions. IMPRESSION: 1. Obstructive jaundice. 2. Alcoholism. 3. Cirrhosis. 4. Ascites. PLAN: No change in his program today. MMODL / IJN: [id number] /
[2021-01-24] MEDS ORDERED: INDOMETHACIN 50MG SUPPOSITORY RECTAL ONE (12:00)
[2021-01-24] MEDS ORDERED: MIDAZOLAM 2 MG/2 ML VIAL ONE (13:17)
[2021-01-24] MEDS ORDERED: KETAMINE 10 MG/ML 20 ML VIAL ONE (13:17)
[2021-01-24] MEDS ORDERED: LIDOCAINE 1% INJ 10MG/ML (20 ML MDV) ONE (13:17)
[2021-01-24] MEDS ORDERED: PROPOFOL 10 MG/ML 20 ML VIAL IV ONE (13:17)
--- NOTE | 2021-01-24 13:43 | P.PCN ---
Date of Procedure: 01/24/21 Procedure(s) Performed: Brief history: Patient is a 50 year-old pleasant white male admitted to hospital 2 weeks ago with jaundice and multiple CBD stones. He underwent an ERCP 10 years ago with CBD stone extraction. 3 days later he underwent gallbladder surgery. He continues to have persistent elevation of bilirubin around 20 and hence scheduled for an ERCP to rule out CBD stones. Procedure performed: ERCP with balloon stone extraction Preoperative diagnoses: Persistent jaundice/history of recent ERCP with multiple CBD stone extraction IV sedation per anesthesia: Procedure: After informed consent was obtained from the patient and after the risks benefits and complications including bleeding perforation and pancreatitis explained in detail the patient was brought into the endoscopy unit. The patient was placed in prone position and IV conscious sedation was administered by anesthesia under continuous monitoring. The Olympus side-viewing duodenoscope was then inserted into the mouth and esophagus intubated without any difficulty. The scope was gradually advanced into the stomach and duodenum. The major papilla was identified without any difficulty. The previously noted bili recent enterotomy site was noted. The 11 mm balloon was passed into the proximal CBD and was injected with dye. There were at least 5 or 6 small filling defects noted in the CBD. At this time the stones were extracted without any difficulty. Repeat occlusion cholangio-was performed and no other filling defects were seen. Patient tolerated the procedure well. Impression: Dilated common bile duct with at least 5-6 filling defects all measuring between 7-8 mm in size status post balloon stone extraction as described above Recommendations: The findings of this examination were discussed with the patient .. Diet will be advanced as tolerated. Repeat labs in the morning. If bili is improving he can be discharged home tomorrow.
[2021-01-24] MEDS ORDERED: IV FLUID CONTINUATION 1,000 ML IV ONE (13:45)
[2021-01-24] MEDS ORDERED: IOPAMIDOL-300 50ML BTL INJ ONE (13:45)
--- NOTE | 2021-01-24 14:14 | P.PN ---
Subjective Progress Note Date: 01/24/21 CHIEF COMPLAINT: Jaundice HISTORY OF PRESENT ILLNESS: Patient is status post laparoscopic cholecystectomy on 01/16/2021 for cholecystitis and cholelithiasis. Patient status post repeat ERCP with Dr. Medrano. Patient had 6 stones extracted. Patient's pain is controlled. He denies any nausea or vomiting. Tolerating diet. He does have some pain on the right side of the abdomen. Afebrile. WBC is 18 hemoglobin 14.7 INR 1.3 sodium 127 creatinine 0.69 total bilirubin down to 18 AST 144 ALT 44 alk phos 298 PHYSICAL EXAM: VITAL SIGNS: Reviewed. GENERAL: Well-developed in no acute distress. HEENT: Positive for sclera icterus. Extraocular movements grossly intact. Moist buccal mucosa. Head is atraumatic, normocephalic. ABDOMEN: Soft. Nondistended. Nontender. Incision sites clean dry and intact NEUROLOGIC: Alert and oriented. Cranial nerves II through XII grossly intact. Skin: Jaundiced ASSESSMENT: 1. Acute on chronic Cholecystitis and cholelithiasis status post laparoscopic cholecystectomy 2. Choledocholithiasis 3. Jaundice and hyperbilirubinemia 4. Alcohol abuse 5. Alcohol hepatitis PLAN: -Continue supportive care -Continue regular diet -Continue pain medication as needed -Repeat blood work in a.m. Physician Worm Sorter note has been reviewed by physician. Signing provider agrees with the documented findings, assessment, and plan of care. Objective - Vital Signs Vital signs: Vital Signs Temp 98.2 F 01/24/21 07:50 Pulse 80 01/24/21 07:50 Resp 16 01/24/21 07:50 BP 119/76 01/24/21 07:50 Pulse Ox 96 01/24/21 07:50 Intake & Output 01/23/21 01/24/21 01/24/21 18:59 06:59 18:59 Intake Total 472 50 Balance 472 50 Intake: IV 50 Oral 472 Other: # Voids 3 2 - Labs CBC & Chem 7: 01/24/21 09:00 01/24/21 09:00 Labs: Abnormal Lab Results - Last 24 Hours (Table) 01/24/21 01/24/21 01/24/21 Range/Units 09:00 09:00 09:00 WBC 18.0 H (3.8-10.6) k/uL RBC 3.91 L (4.30-5.90) m/uL MCV 109.1 H (80.0-100.0) fL MCH 37.7 H (25.0-35.0) pg Macrocytosis Marked A PT 13.6 H (9.0-12.0) sec INR 1.3 H (<1.2) Sodium 127 L (137-145) mmol/L Chloride 94 L (98-107) mmol/L BUN 7 L (9-20) mg/dL Glucose 103 H (74-99) mg/dL Total Bilirubin 18.8 H* (0.2-1.3) mg/dL AST 144 H (17-59) U/L Alkaline Phosphatase 298 H (38-126) U/L Albumin 3.0 L (3.5-5.0) g/dL
--- NOTE | 2021-01-24 14:29 | FL ---
EXAMINATION TYPE: FL ERCP DATE OF EXAM: 01/24/2021 CLINICAL HISTORY: Cholelithiasis. TECHNIQUE: Fluoroscopy. COMPARISON: None. FINDINGS: Fluoroscopic guidance was provided during ERCP procedure performed by GI . A total of 4 7 seconds of fluoroscopic time was utilized during the procedure and 1 spot images was acquired. Plea se refer to procedure note for further details as I was not present nor performed procedure. IMPRESSION: As Above.
[2021-01-24] MEDS: SPIRONOLACTONE-HCTZ 25-25MG 1 EACH TAB PO SCH (20:46)
[2021-01-25] MEDS: PIPERACILLIN-TAZOBACTAM 3.375 GM in SODIUM CHLORIDE 0.9% 100 ML IVPB SCH ×2 (00:19→09:35)
[2021-01-25] MEDS: SODIUM CHLORIDE 0.9% 1,000 ML IV SCH (02:46)
[2021-01-25 07:50] LABS: ALT 41 U/L (4-49); AST 130 U/L (17-59); African American GFR (CKD) >90 (>60 ml/min/1.73 sqM); Albumin 2.9 g/dL (3.5-5.0); Albumin/Globulin Ratio 0.8; Alkaline Phosphatase 316 U/L (38-126); Anion Gap 12 mmol/L; Blood Urea Nitrogen 6 mg/dL (9-20); Calcium 8.4 mg/dL (8.4-10.2); Carbon Dioxide 23 mmol/L (22-30); Chloride 95 mmol/L (98-107); Globulin 3.6 g/dL; Glucose 95 mg/dL (74-99); Non-African American GFR(CKD) >90 (>60 ml/min/1.73 sqM); Sodium 130 mmol/L (137-145); Total Protein 6.5 g/dL (6.3-8.2)
[2021-01-25] MEDS: THIAMINE 100 MG TAB PO SCH (08:12)
[2021-01-25] MEDS: ENOXAPARIN 40 MG/0.4 ML SYRINGE SQ SCH (08:12)
[2021-01-25] MEDS: SPIRONOLACTONE-HCTZ 25-25MG 1 EACH TAB PO SCH (08:12)
[2021-01-25] MEDS: POTASSIUM CHLORIDE ER 20 MEQ TAB.ER PO SCH (08:13)
[2021-01-25] MEDS: FUROSEMIDE 40 MG TAB PO SCH (08:13)
[2021-01-25] MEDS: LORATADINE 10 MG TAB PO SCH (08:13)
[2021-01-25 08:18] VITALS: BP 109/74; PULSE 91; RESP 18; TEMP 98.6
--- NOTE | 2021-01-25 10:31 | PN ---
PROGRESS NOTE DATE OF SERVICE: 01/24/2021. CHIEF COMPLAINT: Obstructive jaundice. HISTORY OF PRESENT ILLNESS: This gentleman is still waiting his transfer to [facility]. PHYSICAL EXAMINATION: He is afebrile. Chest is clear. Cardiac exam is normal. IMPRESSION: Obstructive jaundice. PLAN: No change in management this time and continue to follow labs. We await his transfer. MMODL / IJN: [id number] /
[2021-01-25 11:11] LABS: HCT 37.9 % (39.6-50.0); HGB 13.1 g/dL (13.0-17.0); MCH 36.2 pg (27.0-32.0); MCHC 34.6 g/dL (32.0-37.0); MCV 104.7 fL (80.0-97.0); Mean Platelet Volume 11.3 fL (9.5-12.2); Platelet Count 272 X 10*3/uL (140-440); RBC 3.62 X 10*6/uL (4.40-5.60); RDW 13.6 % (11.5-14.5); WBC 17.99 X 10*3/uL (4.50-10.00)
--- NOTE | 2021-01-25 11:54 | P.PN ---
Subjective Progress Note Date: 01/25/21 Principal diagnosis: Hyperbilirubinemia, choledocholithiasis This is a 50-year-old male who had presented to the emergency department approximately 2 weeks ago with jaundice. Patient has a history of heavy alcohol use and was drinking up to have pain to a pint a day. He had no previous history of underlying liver disease to his knowledge. He had evidence of choledocholithiasis and underwent ERCP on 01/13/2021 with removal of multiple stones. Gen. surgery is on consult, and the patient underwent cholecystectomy on 01/16/2021. There was no gastroenterology available after 01/13/2021 until today. The patient has continued to be jaundiced with elevated bilirubin in the 20s. Yesterday he underwent an ERCP with findings of dilated common bile duct with at least 5-6 filling defects all measuring between 7 and 8 mm in size status post balloon stone extraction. Repeat labs show trending down of WBC, total bilirubin continues to trend down at 16 AST 1:30 ALT 41 alkaline phosphatase 316. Patient has been afebrile, passing gas and having bowel movements. He denies any abdominal pain, nausea, or vomiting. He states he would like to be discharged home. Objective - Vital Signs Vital signs: Vital Signs Temp 98.6 F 01/25/21 08:17 Pulse 91 01/25/21 08:17 Resp 18 01/25/21 08:17 BP 109/74 01/25/21 08:17 Pulse Ox 97 01/25/21 08:17 Intake & Output 01/24/21 01/25/21 01/25/21 18:59 06:59 18:59 Intake Total 50 1120 Output Total 800 Balance 50 320 Intake: IV 50 700 Piperacillin-Tazobactam 3 100 .375 gm In Sodium Chloride 0.9% 100 ml @ 25 mls/hr IVPB Q8HR [facility] Rx# :[id number] Sodium Chloride 0.9% 1, 600 000 ml @ 75 mls/hr IV . [id number] YECENIA Rx#:[id number] Oral 420 Output: Urine 800 Other: Voiding Method Toilet # Voids 5 3 - Exam General appearance: The patient is alert, oriented, appears in no acute d istress. HET: Head is normocephalic and atraumatic. Conjunctiva pink. Sclera deeply icteric. Neck: Supple without lymphadenopathy. Abdomen: Soft, nontender, nondistended with bowel sounds. No guarding or rigidity. Extremities: Normal skin color and turgor. No pedal edema Skin: No rashes, jaundice. Neurological: No focal deficits. Alert and oriented 3. - Labs CBC & Chem 7: 01/25/21 06:52 01/25/21 06:52 Labs: Abnormal Lab Results - Last 24 Hours (Table) 01/24/21 01/24/21 01/24/21 Range/Units 09:00 09:00 09:00 WBC 18.0 H (3.8-10.6) k/uL RBC 3.91 L (4.30-5.90) m/uL MCV 109.1 H (80.0-100.0) fL MCH 37.7 H (25.0-35.0) pg Macrocytosis Marked A PT 13.6 H (9.0-12.0) sec INR 1.3 H (<1.2) Sodium 127 L (137-145) mmol/L Chloride 94 L (98-107) mmol/L BUN 7 L (9-20) mg/dL Glucose 103 H (74-99) mg/dL Total Bilirubin 18.8 H* (0.2-1.3) mg/dL AST 144 H (17-59) U/L Alkaline Phosphatase 298 H (38-126) U/L Albumin 3.0 L (3.5-5.0) g/dL 01/25/21 Range/Units 06:52 WBC (3.8-10.6) k/uL RBC (4.30-5.90) m/uL MCV (80.0-100.0) fL MCH (25.0-35.0) pg Macrocytosis PT (9.0-12.0) sec INR (<1.2) Sodium 130 L (137-145) mmol/L Chloride 95 L (98-107) mmol/L BUN 6 L (9-20) mg/dL Glucose (74-99) mg/dL Total Bilirubin 16.0 H* (0.2-1.3) mg/dL AST 130 H (17-59) U/L Alkaline Phosphatase 316 H (38-126) U/L Albumin 2.9 L (3.5-5.0) g/dL Assessment and Plan (1) Hyperbilirubinemia Narrative/Plan: 50-year-old male with no significant past medical history other than alcohol abuse for the past 20 years. Patient states he had been drinking 6 date. Kishore along with half a pint a day. He states about 2 months ago he started to cut back. He presented to the emergency department for evaluation of the ongoing of his skin. He states approximately 2 weeks ago he started noticing his skin turning yellow which has been worsening over the last few days. He also states he has been having dark urine, abdominal bloating and occasional sharp pains. He denies any nausea or vomiting. He's had no previous EGD or colonoscopy. Denies any previous history of liver disease, hepatitis, pancreatitis, or known gallbladder disease. On admission he was noted to have elevated LFTs, leukocytosis. Admitting labs WBC 14.9 hemoglobin 15 hematocrit 45 platelet count 365 Biju an INR 1.4 total bilirubin 26.3 AST [id number] a 64 alk phos 298 amylase 55 lipase 203. Acute hepatitis panel was nonreactive. Patient underwent ultrasound of the abdomen showing hepatic biliary dilation w ith mild fatty infiltration and cholelithiasis. MRI/MRCP of the liver is ordered per primary care. Labs and patient's history is consistent with acute alcoholic hepatitis. However biliary obstruction needs to be considered as well. MRCP ordered and reviewed within the impression stating approximately 15 stones in the biliary system outside the cystic duct extending to the central intrahepatic ducts. No intrahepatic biliary dilation. Mild extrahepatic biliary dilation. Additional multiple small calculi within the gallbladder without MRI evidence for acute cholecystitis. Patient underwent ERCP on 01/13/2021 with findings of multiple stones status post biliary stent enterotomy and balloon stone extraction with 15-20 stones extracted. He then also underwent cholecystectomy on 01/16/2021. He initially had some drop in his bilirubin and LFTs however they have consistently stayed in the mid 20s. He remains jaundice. Plan will be to repeat ERCP tomorrow. Patient underwent ERCP with findings of 5-6 filling defects status post stone extraction. He had improvement on his WBC as well as LFTs. Current Visit: Yes Status: Acute Code(s): E80.6 - OTHER DISORDERS OF BILIRUBIN METABOLISM SNOMED Code(s): 97147138 (2) Choledocholithiasis Current Visit: Yes Status: Acute Code(s): K80.50 - CALCULUS OF BILE DUCT W/O CHOLANGITIS OR CHOLECYST W/O OBST SNOMED Code(s): 451888450 (3) Alcohol abuse Current Visit: Yes Status: Acute Code(s): F10.10 - ALCOHOL ABUSE, UNCOMPLICATED SNOMED Code(s): 43373846 Plan: 1. Patient may have regular diet 2. Daily CMP 3. Transfer to tertiary center ([facility]) may be canceled as patient underwent ERCP yesterday with 5-6 filling defects status post stone extraction 4. Patient is stable and cleared from gastroenterology for discharge. Patient to follow-up with gastroenterology in 1-2 weeks 5. Discussed importance of alcohol abstinence, patient receptive. Thank you for this consultation, we will continue to follow. Dr. Manpreet Medrano I agree with the dictator's note, documented as a scribe by Moriah Michelle.
--- NOTE | 2021-01-25 12:37 | P.PN ---
Subjective Progress Note Date: 01/25/21 CHIEF COMPLAINT: Jaundice HISTORY OF PRESENT ILLNESS: Patient is status post laparoscopic cholecystectomy on 01/16/2021 for cholecystitis and cholelithiasis. Patient status post repeat ERCP with Dr. Medrano. Patient had 6 stones extracted. Patient's pain is controlled. He denies any nausea or vomiting. Tolerating diet. Afebrile. WBC is 17.99 hemoglobin 13.1 platelets 272 sodium 1:30 potassium 4.0 BUN 6 creatinine 0.69 total bili down to 16 AST 1:30 ALT 41 alk phos 316 patient has been cleared by GI service for discharge PHYSICAL EXAM: VITAL SIGNS: Reviewed. GENERAL: Well-developed in no acute distress. HEENT: Positive for sclera icterus. Extraocular movements grossly intact. Moist buccal mucosa. Head is atraumatic, normocephalic. ABDOMEN: Soft. Nondistended. Nontender. Incision sites clean dry and intact NEUROLOGIC: Alert and oriented. Cranial nerves II through XII grossly intact. Skin: Jaundiced ASSESSMENT: 1. Acute on chronic Cholecystitis and cholelithiasis status post laparoscopic cholecystectomy 2. Choledocholithiasis 3. Jaundice and hyperbilirubinemia 4. Alcohol abuse 5. Alcohol hepatitis PLAN: -Patient can be discharged from surgical standpoint -Patient follow up with Dr. Garcia in 1 week -Recommend the patient follows up with GI service outpatient -Patient does not require antibiotics at discharge from surgical standpoint Physician Bolt Cutter note has been reviewed by physician. Signing provider agrees with the documented findings, assessment, and plan of care. Objective - Vital Signs Vital signs: Vital Signs Temp 98.6 F 01/25/21 08:17 Pulse 91 01/25/21 08:17 Resp 18 01/25/21 08:17 BP 109/74 01/25/21 08:17 Pulse Ox 97 01/25/21 08:17 Intake & Output 01/24/21 01/25/21 01/25/21 18:59 06:59 18:59 Intake Total 50 1120 Output Total 800 Balance 50 320 Intake: IV 50 700 Piperacillin-Tazobactam 3 100 .375 gm In Sodium Chloride 0.9% 100 ml @ 25 mls/hr IVPB Q8HR [facility] Rx# :[id number] Sodium Chloride 0.9% 1, 600 000 ml @ 75 mls/hr IV . [id number] YECENIA Rx#:[id number] Oral 420 Output: Urine 800 Other: Voiding Method Toilet # Voids 5 3 - Labs CBC & Chem 7: 01/25/21 06:52 01/25/21 06:52 Labs: Abnormal Lab Results - Last 24 Hours (Table) 01/25/21 01/25/21 Range/Units 06:52 06:52 WBC 17.99 H (4.50-10.00) X 10*3/uL RBC 3.62 L (4.40-5.60) X 10*6/uL Hct 37.9 L (39.6-50.0) % MCV 104.7 H (80.0-97.0) fL MCH 36.2 H (27.0-32.0) pg Sodium 130 L (137-145) mmol/L Chloride 95 L (98-107) mmol/L BUN 6 L (9-20) mg/dL Total Bilirubin 16.0 H* (0.2-1.3) mg/dL AST 130 H (17-59) U/L Alkaline Phosphatase 316 H (38-126) U/L Albumin 2.9 L (3.5-5.0) g/dL
--- NOTE | 2021-01-26 00:07 | DS ---
DISCHARGE SUMMARY CHIEF COMPLAINT: Jaundice. HISTORY OF PRESENT ILLNESS AND PHYSICAL EXAMINATION: Details of this man's history and physical can be found in the initial workup. LABORATORY STUDIES: While he was in the hospital, he had laboratory studies, details of which can be found in the laboratory section of his chart. COURSE IN THE HOSPITAL: After admission, he was placed on bedrest and seen by Gastroenterology and an MRCP revealed common duct stones. He was taken for an ERCP with sphincterotomy and numerous stones were removed. He subsequently went on to have a cholecystectomy, but his bilirubin continued to bounce between 22 and 26. He remained deeply jaundice. He had very little pain and he had no fever or chills. It was thought that he should have another ERCP, but gastroenterology was backed up and suggested that we transfer him to an outside hospital. Arrangements were made for him to go to [facility], but no beds were available for many days. Finally, the Gastroenterology was able to find the time to do another ERCP and more stones were extracted. Then his bilirubin began to plummet. He was doing well and he was stable and it was felt that he could go home on January 25 and he will go home on light activity about the house and a regular diet. He will be followed up in a day or 2 and laboratory studies will be repeated with hopes that his hepatic function would return to normal or near normal. He was also sent home on diuretics to deal with his ascites. FINAL DIAGNOSES: 1. Obstructive jaundice. 2. Biliary calculi. 3. Cholelithiasis. 4. Chronic alcoholism. 5. Cirrhosis. 6. Ascites. OPERATIONS: ERCP at 2 different settings with sphincterotomy and a common duct stone removal. He was improved. MMODL / IJN: [id number] /
== END 2021-01-25 13:44 | disposition home or self-care (01) | DRG 418 ==
LOC: EC 10:42 → 4SSUR 15:22
PROVIDERS: ADMIT Family Medicine; ATTEND Family Medicine
PROC: 0F798DZ Dilation of Common Bile Duct with Intraluminal Device, Via Natural or Artificial Opening Endoscopic (ICD-10-PCS; 2021-01-13)
PROC: BF111ZZ Fluoroscopy of Biliary and Pancreatic Ducts using Low Osmolar Contrast (ICD-10-PCS; 2021-01-13)
PROC: 0FC98ZZ Extirpation of Matter from Common Bile Duct, Via Natural or Artificial Opening Endoscopic (ICD-10-PCS; 2021-01-13)
PROC: 0FT44ZZ Resection of Gallbladder, Percutaneous Endoscopic Approach (ICD-10-PCS; principal; 2021-01-16 08:15)
PROC: 0FC98ZZ Extirpation of Matter from Common Bile Duct, Via Natural or Artificial Opening Endoscopic (ICD-10-PCS; 2021-01-24)
PROC: BF101ZZ Fluoroscopy of Bile Ducts using Low Osmolar Contrast (ICD-10-PCS; 2021-01-24)
DX: K80.66 Calculus of gallbladder and bile duct with acute and chronic cholecystitis without obstruction (principal); F10.239 Alcohol dependence with withdrawal, unspecified; K70.11 Alcoholic hepatitis with ascites; K70.40 Alcoholic hepatic failure without coma; Z87.891 Personal history of nicotine dependence; Z20.822 Contact with and (suspected) exposure to COVID-19; K70.31 Alcoholic cirrhosis of liver with ascites; E80.6 Other disorders of bilirubin metabolism
CPT/HCPCS: 36415; 43260; 43262; 43264; 74183; 74330; 76705; 80053; 80074; 80076; 81001; 82140; 82150; 83690; 85025; 85027; 85610; 85730; 86850; 86900; 86901; 87635; 88304; 99285

== ENCOUNTER → 2021-02-21 | Outpatient (CLI) | payer OTHER ==
[2021-02-21 19:50] LABS: HCT 40.4 % (39.6-50.0); HGB 13.6 g/dL (13.0-17.0); Lymphocytes % (A) 28.4 %; MCH 35.2 pg (27.0-32.0); MCHC 33.7 g/dL (32.0-37.0); MCV 104.7 fL (80.0-97.0); Mean Platelet Volume 10.8 fL (9.5-12.2); Neutrophils % (A) 58.5 %; Platelet Count 225 X 10*3/uL (140-440); RBC 3.86 X 10*6/uL (4.40-5.60); RDW 11.7 % (11.5-14.5); WBC 8.51 X 10*3/uL (4.50-10.00)
[2021-02-21 19:51] LABS: Basophils # (A) 0.18 X 10*3/uL (0.00-0.10); Basophils % (A) 2.1 %; Eosinophils # (A) 0.41 X 10*3/uL (0.04-0.35); Eosinophils % (A) 4.8 %; Lymphocytes # (A) 2.42 X 10*3/uL (0.90-5.00); Monocytes # (A) 0.51 X 10*3/uL (0.20-1.00); Neutrophils # (A) 4.97 X 10*3/uL (1.80-7.70)
[2021-02-21 21:03] LABS: African American GFR (CKD) 128.5 (60.0-200.0); Albumin 3.3 g/dL (3.8-4.9); Albumin/Globulin Ratio 1.12 (1.60-3.17); Anion Gap 10.6 mmol/L (4.00-12.00); BUN/Creat Ratio 5.77 Ratio (12.00-20.00); Blood Urea Nitrogen 4.1 mg/dL (9.0-27.0); Calcium 8.9 mg/dL (8.7-10.3); Carbon Dioxide 23.6 mmol/L (21.6-31.8); Globulin 2.9 g/dL (1.6-3.3); Non-African American GFR(CKD) 110.9 (60.0-200.0); Potassium 3.8 mmol/L (3.5-5.5); Total Bilirubin 3.7 mg/dL (0.30-1.20); Total Protein 6.2 g/dL (6.2-8.2)
== END | disposition home or self-care (01) ==
LOC: LABWHC1 13:55
PROVIDERS: ATTEND Internal Medicine Gastroenterology
DX: K80.50 Calculus of bile duct without cholangitis or cholecystitis without obstruction (principal)
CPT/HCPCS: 36415; 80053; 85025

== ENCOUNTER 2021-05-25 17:01 | Inpatient (IN) | payer OTHER ==
[2021-05-25] MEDS ORDERED: SODIUM CHLORIDE 0.9% 1,000 ML IV ONE ×2 (17:19→18:17)
[2021-05-25] MEDS ORDERED: SODIUM CHLORIDE 0.9% 500 ML 500 ML IV ONE (17:19)
--- NOTE | 2021-05-25 17:28 | ED ---
General Adult HPI - General Chief complaint: Alcohol Stated complaint: Weakness Time Seen by Provider: 05/25/21 17:05 Source: patient, EMS, RN notes reviewed, old records reviewed Mode of arrival: EMS Limitations: no limitations - History of Present Illness Initial comments: This is a 50-year-old male who presents emergency Department stating that he has been an alcoholic for 20 years. Patient states she stopped drinking heavily on Saturday he's had a little since but not very much in his been having the shakes and he thinks this morning he passed out and had a seizure. Patient states she's never had a seizure in the past. Patient denies headache patient denies numbness weakness. Patient denies any chest pain palpitations difficulty breathing shortness breath per patient denies any fever chills or cough. Patient denies any abdominal pain. - Related Data Home Medications Medication Instructions Recorded Confirmed Cetirizine HCl [Zyrtec] 10 mg PO DAILY 01/10/21 05/25/21 Vitamin B Complex 1 cap PO DAILY 01/10/21 05/25/21 Ascorbic Acid [Vitamin C] 500 mg PO DAILY 05/25/21 05/25/21 Previous Rx's Medication Instructions Recorded Thiamine [Vitamin B-1] 100 mg PO BID-W/MEALS #60 tab 01/25/21 Allergies Allergy/AdvReac Type Severity Reaction Status Date / Time pistachio nut Allergy Rash/Hives Verified 05/25/21 18:04 soy Allergy Rash/Hives Verified 05/25/21 18:04 Review of Systems ROS Statement: Those systems with pertinent positive or pertinent negative responses have been documented in the HPI. ROS Other: All systems not noted in ROS Statement are negative. Past Medical History Past Medical History: No Reported History Additional Past Medical History / Comment(s): allergies History of Any Multi-Drug Resistant Organisms: None Reported Past Surgical History: Cholecystectomy Additional Past Surgical History / Comment(s): wisdom teeth Past Psychological History: No Psychological Hx Reported Smoking Status: Former smoker Past Alcohol Use History: Abuse, Daily, Heavy Past Drug Use History: None Reported General Exam - General Exam Comments Initial Comments: GENERAL: Patient is well-developed and well-nourished. Patient is nontoxic and well- hydrated and is in mild distress. ENT: Neck is soft and supple. No significant lymphadenopathy is noted. Oropharynx is clear. Moist mucous membranes. Neck has full range of motion without arpit citing any pain. EYES: The sclera were anicteric and conjunctiva were pink and moist. Extraocular movements were intact and pupils were equal round and reactive to light. Eyelids were unremarkable. PULMONARY: Unlabored respirations. Good breath sounds bilaterally. No audible rales rhonchi or wheezing was noted. CARDIOVASCULAR: There is a regular rate and rhythm without any murmurs gallops or rubs. ABDOMEN: Soft and nontender with normal bowel sounds. SKIN: Skin is clear with no lesions or rashes and otherwise unremarkable. NEUROLOGIC: Patient is alert and oriented x3. Cranial nerves II through XII are grossly intact. Motor and sensory are also intact. Normal speech, volume and content. Symmetrical smile. MUSCULOSKELETAL: Normal extremities with adequate strength and full range of motion. LYMPHATICS: No significant lymphadenopathy is noted PSYCHIATRIC: Normal psychiatric evaluation. Limitations: no limitations Course Vital Signs 05/25/21 17:03 Temperature 98.4 F Pulse Rate 112 H Respiratory 18 Rate Blood Pressure 104/69 O2 Sat by Pulse 100 Oximetry Medical Decision Making - Medical Decision Making EKG shows sinus tachycardia at 111 bpm FL interval 144 QRS is 72 QT interval 370 QTC is 543. Patient's EKG shows no ST segment elevation or depression. The patient received a liter and a half of normal saline. Then he was placed on a banana bag and was given 2 g of magnesium. I type and cross the patient his hemoglobin was low. I spoke with Dr. Aceves and he agreed to admit the patient admitted the patient wrote admitting orders. - Lab Data Result diagrams: 05/25/21 17:24 05/25/21 17:24 Lab Results 05/25/21 05/25/21 05/25/21 Range/Units 17:24 17:24 17:24 WBC 12.0 H (3.8-10.6) k/uL RBC 2.41 L (4.30-5.90) m/uL Hgb 7.2 L (13.0-17.5) gm/dL Hct 22.7 L (39.0-53.0) % MCV 94.2 (80.0-100.0) fL MCH 29.8 (25.0-35.0) pg MCHC 31.6 (31.0-37.0) g/dL RDW 16.2 H (11.5-15.5) % Plt Count 171 (150-450) k/uL MPV 9.6 Neutrophils % 81 % Lymphocytes % 14 % Monocytes % 4 % Eosinophils % 1 % Basophils % 0 % Neutrophils # 9.7 H (1.3-7.7) k/uL Lymphocytes # 1.6 (1.0-4.8) k/uL Monocytes # 0.5 (0-1.0) k/uL Eosinophils # 0.1 (0-0.7) k/uL Basophils # 0.0 (0-0.2) k/uL Hypochromasia Moderate Anisocytosis Slight Sodium 133 L (137-145) mmol/L Potassium 3.4 L (3.5-5.1) mmol/L Chloride 97 L (98-107) mmol/L Carbon Dioxide 24 (22-30) mmol/L Anion Gap 12 mmol/L BUN 58 H (9-20) mg/dL Creatinine 1.01 (0.66-1.25) mg/dL Est GFR (CKD-EPI)AfAm >90 (>60 ml/min/1.73 sqM) Est GFR (CKD-EPI)NonAf 88 (>60 ml/min/1.73 sqM) Glucose 147 H (74-99) mg/dL Calcium 8.8 (8.4-10.2) mg/dL Magnesium 1.5 L (1.6-2.3) mg/dL Total Bilirubin 2.5 H (0.2-1.3) mg/dL AST 120 H (17-59) U/L ALT 45 (4-49) U/L Alkaline Phosphatase 50 (38-126) U/L Total Protein 5.9 L (6.3-8.2) g/dL Albumin 3.2 L (3.5-5.0) g/dL Urine Opiates Screen Not Detected (NotDetected) Ur Oxycodone Screen Not Detected (NotDetected) Urine Methadone Screen Not Detected (NotDetected) Ur Propoxyphene Screen Not Detected (NotDetected) Ur Barbiturates Screen Not Detected (NotDetected) U Tricyclic Antidepress Not Detected (NotDetected) Ur Phencyclidine Scrn Not Detected (NotDetected) Ur Amphetamines Screen Not Detected (NotDetected) U Methamphetamines Scrn Not Detected (NotDetected) U Benzodiazepines Scrn Not Detected (NotDetected) Urine Cocaine Screen Not Detected (NotDetected) U Marijuana (THC) Screen Not Detected (NotDetected) Serum Alcohol <10 mg/dL Disposition Clinical Impression: Alcohol withdrawal seizure, Anemia, Alcohol abuse, Hypomagnesemia Disposition: ADMITTED IP TO THIS HOSP Referrals: Miguel Monroy MD [Primary Care Provider] - 1-2 days Time of Disposition: 18:14
[2021-05-25] MEDS ORDERED: LORazepam 2 MG/ML INJ IV STA (17:30)
[2021-05-25 17:31] LABS: Anisocytosis Slight; Basophils % (A) 0 %; Eosinophils # (A) 0.1 k/uL (0-0.7); Eosinophils % (A) 1 %; HCT 22.7 % (39.0-53.0); HGB 7.2 gm/dL (13.0-17.5); Hypochromasia Moderate; Lymphocytes # (A) 1.6 k/uL (1.0-4.8); Lymphocytes % (A) 14 %; MCH 29.8 pg (25.0-35.0); MCHC 31.6 g/dL (31.0-37.0); MCV 94.2 fL (80.0-100.0); Mean Platelet Volume 9.6; Monocytes # (A) 0.5 k/uL (0-1.0); Monocytes % (A) 4 %; Neutrophils # (A) 9.7 k/uL (1.3-7.7); Neutrophils % (A) 81 %; Platelet Count 171 k/uL (150-450); RBC 2.41 m/uL (4.30-5.90); RDW 16.2 % (11.5-15.5)
[2021-05-25] MEDS ORDERED: ONDANSETRON 4 MG/2 ML VIAL IVP STA (17:41)
[2021-05-25 17:45] LABS: ALT 45 U/L (4-49); AST 120 U/L (17-59); African American GFR (CKD) >90 (>60 ml/min/1.73 sqM); Albumin 3.2 g/dL (3.5-5.0); Alcohol <10 mg/dL; Alkaline Phosphatase 50 U/L (38-126); Anion Gap 12 mmol/L; Blood Urea Nitrogen 58 mg/dL (9-20); Calcium 8.8 mg/dL (8.4-10.2); Carbon Dioxide 24 mmol/L (22-30); Chloride 97 mmol/L (98-107); Glucose 147 mg/dL (74-99); Magnesium 1.5 mg/dL (1.6-2.3); Non-African American GFR(CKD) 88 (>60 ml/min/1.73 sqM); Potassium 3.4 mmol/L (3.5-5.1); Sodium 133 mmol/L (137-145); Total Bilirubin 2.5 mg/dL (0.2-1.3); Total Protein 5.9 g/dL (6.3-8.2)
[2021-05-25] MEDS ORDERED: SODIUM CHLORIDE 0.9% 1,000 ML with MVI, ADULT NO.4 WITH VIT K 10 ML, THIAMINE 100 MG, F... IV ONE ×4 (18:00)
[2021-05-25 18:03] LABS: Amphetamine Screen,Urine Not Detected (NotDetected); Barbiturate Screen,Urine Not Detected (NotDetected); Benzodiazepines Screen,Urine Not Detected (NotDetected); Cocaine Screen,Urine Not Detected (NotDetected); Methadone Screen, Urine Not Detected (NotDetected); Opiate Screen,Urine Not Detected (NotDetected); Oxycodone Screen, Urine Not Detected (NotDetected); Phencyclidine Screen,Urine Not Detected (NotDetected); Tricyclic Antidepressant,Urine Not Detected (NotDetected); Urn Cannabinoid Scrn Not Detected (NotDetected)
[2021-05-25] MEDS: MAGNESIUM SULFATE-D5W PMX 1 GM in DEXTROSE/WATER 1 100ML.BAG IVPB SCH ×2 (18:15→19:45)
[2021-05-25] MEDS ORDERED: THIAMINE 100 MG/ML 2 ML VIAL IM STA (18:17)
[2021-05-25] MEDS ORDERED: LORazepam 2 MG/ML INJ IV PRN ×2 (18:17)
[2021-05-25 19:02] LABS: Anisocytosis Slight; Basophils % (A) 0 %; Eosinophils # (A) 0.2 k/uL (0-0.7); Eosinophils % (A) 2 %; Hypochromasia Slight; Lymphocytes # (A) 1.4 k/uL (1.0-4.8); Lymphocytes % (A) 15 %; MCH 30.5 pg (25.0-35.0); MCHC 32.8 g/dL (31.0-37.0); MCV 93.1 fL (80.0-100.0); Mean Platelet Volume 9.3; Monocytes # (A) 0.3 k/uL (0-1.0); Monocytes % (A) 3 %; Neutrophils # (A) 7.2 k/uL (1.3-7.7); Neutrophils % (A) 79 %; Platelet Count 120 k/uL (150-450); RBC 1.99 m/uL (4.30-5.90); RDW 16.6 % (11.5-15.5); WBC 9.2 k/uL (3.8-10.6)
[2021-05-25 19:06] LABS: HGB 6.1 gm/dL (13.0-17.5)
[2021-05-25 19:07] LABS: HCT 18.5 % (39.0-53.0)
[2021-05-26 00:59] LABS: Anisocytosis Slight; Basophils % (A) 0 %; Eosinophils % (A) 0 %; Hypochromasia Slight; Lymphocytes # (A) 2.1 k/uL (1.0-4.8); Lymphocytes % (A) 16 %; MCH 30.7 pg (25.0-35.0); MCHC 32.2 g/dL (31.0-37.0); MCV 95.3 fL (80.0-100.0); Monocytes # (A) 0.7 k/uL (0-1.0); Monocytes % (A) 5 %; Neutrophils # (A) 10.5 k/uL (1.3-7.7); Neutrophils % (A) 78 %; Platelet Count 143 k/uL (150-450); RBC 1.89 m/uL (4.30-5.90); RDW 16.3 % (11.5-15.5); WBC 13.6 k/uL (3.8-10.6)
[2021-05-26 01:07] LABS: HGB 5.8 gm/dL (13.0-17.5)
[2021-05-26 02:52] LABS: INR 1.9 (<1.2); Prothrombin Time 18.8 sec (9.0-12.0)
[2021-05-26] MEDS: LORazepam 2 MG/ML INJ IV PRN ×3 (04:54→21:17)
[2021-05-26] MEDS: THIAMINE 100 MG TAB PO SCH ×2 (06:42→16:05)
[2021-05-26 09:34] LABS: Hypochromasia Slight; MCH 30.7 pg (25.0-35.0); MCHC 32.5 g/dL (31.0-37.0); MCV 94.4 fL (80.0-100.0); Mean Platelet Volume 10.5; Platelet Count 143 k/uL (150-450); Poikilocytosis Slight; RBC 2.12 m/uL (4.30-5.90); RDW 15.5 % (11.5-15.5); WBC 15.7 k/uL (3.8-10.6)
[2021-05-26 09:37] LABS: HGB 6.5 gm/dL (13.0-17.5)
[2021-05-26 09:39] LABS: ALT 47 U/L (4-49); AST 114 U/L (17-59); African American GFR (CKD) >90 (>60 ml/min/1.73 sqM); Albumin 2.6 g/dL (3.5-5.0); Alkaline Phosphatase 46 U/L (38-126); Anion Gap 5 mmol/L; Blood Urea Nitrogen 47 mg/dL (9-20); Calcium 7.9 mg/dL (8.4-10.2); Carbon Dioxide 28 mmol/L (22-30); Chloride 103 mmol/L (98-107); Glucose 134 mg/dL (74-99); Non-African American GFR(CKD) 86 (>60 ml/min/1.73 sqM); Potassium 3.2 mmol/L (3.5-5.1); Sodium 136 mmol/L (137-145); Total Bilirubin 2.3 mg/dL (0.2-1.3); Total Protein 5.1 g/dL (6.3-8.2)
[2021-05-26] MEDS: PANTOPRAZOLE 40 MG/10 ML VIAL IVP SCH (09:46)
--- NOTE | 2021-05-26 11:16 | P.CONS ---
History of Present Illness - Reason for Consult Consult date: 05/26/21 anemia, alcoholic cirrhosis Requesting physician: Miguel Monroy - Chief Complaint weakness, fall seizure - History of Present Illness This is a 50-year-old white male with a past medical history significant of alcohol abuse who presented to the emergency department yesterday with concerns that time he had passed out and possibly had a seizure, he did have a fall and hit his head. He has a significant history of alcoholism for greater than 20 years. He at one point was drinking a 6 pack and a pint a day. Now he is stating that he is drinking 3-5 beers a day. Patient states he was feeling really shaky Saturday so he thought if he would wean himself down from some beers just maybe 1 or 2 he would do better however he has become very shaky and was concerned and came to the emergency department. He was admitted in December 2020 for jaundice. He was found to have cholelithiasis and choledocholithiasis and underwent cholecystectomy and ERCP with stone extraction. At that time he was diagnosed with underlying alcoholic liver disease. And he was told to quit drinking however he did not. The patient came in with a hemoglobin of 7.2 which dropped to 5.8 through the night he was transfused 1 unit of PRBC transfusion with a repeat hemoglobin of 6.5. Patient states he vomited blood about 9 days ago.has been having black stools. He denies any previous history of GI bleed. He denies any abdominal pain, nausea, or vomiting. He is shaking well during this interview. Review of Systems REVIEW OF SYSTEMS: CARDIOPULMONARY: No chest pain or shortness of breath. Gastrointestinal: No abdominal pain. No nausea or vomiting. No hematemesis, coffee-ground emesis. No rectal bleeding, or melena. GENITOURINARY: No dysuria or hematuria. MUSCULOSKELETAL: Reports normal range of motion., Joint pain. SKIN: No rashes. No jaundice. ENDOCRINE: No chills, fevers. No excessive weight gain or loss. No polydipsia or polyuria. PSYCHIATRIC: Unremarkable. NEUROLOGY: Patient has been very shaky, place he may have had a seizure, he did fall. ENT: Vision unremarkable. CONSTITUTIONAL: No recent weight loss. No fever, chills, night sweats. Past Medical History Past Medical History: No Reported History Additional Past Medical History / Comment(s): allergies History of Any Multi-Drug Resistant Organisms: None Reported Past Surgical History: Cholecystectomy Additional Past Surgical History / Comment(s): wisdom teeth Past Psychological History: No Psychological Hx Reported Smoking Status: Former smoker Past Alcohol Use History: Abuse, Daily, Heavy Past Drug Use History: None Reported Medications and Allergies Home Medications Medication Instructions Recorded Confirmed Type Cetirizine HCl [Zyrtec] 10 mg PO DAILY 01/10/21 05/25/21 History Vitamin B Complex 1 cap PO DAILY 01/10/21 05/25/21 History Thiamine [Vitamin B-1] 100 mg PO BID-W/MEALS #60 tab 01/25/21 05/25/21 Rx Ascorbic Acid [Vitamin C] 500 mg PO DAILY 05/25/21 05/25/21 History Allergies Allergy/AdvReac Type Severity Reaction Status Date / Time pistachio nut Allergy Rash/Hives Verified 05/25/21 18:04 soy Allergy Rash/Hives Verified 05/25/21 18:04 Physical Exam Vitals: Vital Signs Temp Pulse Pulse Resp BP BP Pulse Ox 05/26/21 07:20 98.7 F 112 H 18 115/58 05/26/21 07:17 98.7 F 112 H 18 115/58 05/26/21 04:15 97.7 F 109 H 18 111/54 05/26/21 04:00 98.8 F 114 H 18 107/54 97 05/26/21 03:45 98.8 F 114 H 18 107/54 05/26/21 03:35 97.7 F 114 H 18 117/59 95 05/26/21 00:20 98.1 F 111 H 18 117/58 99 05/26/21 00:19 98.1 F 111 H 18 117/58 99 05/25/21 22:42 112 H 18 114/61 97 05/25/21 20:26 103 H 20 104/66 95 05/25/21 19:55 105 H 16 85/33 97 05/25/21 19:00 106 H 16 103/61 97 05/25/21 18:15 101 H 18 104/58 92 L 05/25/21 17:03 98.4 F 112 H 18 104/69 100 Intake and Output 05/25/21 05/26/21 05/26/21 22:59 06:59 14:59 Intake Total 0 310 Balance 0 310 Intake: Blood Product 0 310 Rc As-1 Unit 0 310 [id number] Other: # Voids 2 Weight 99.79 kg 99.79 kg General appearance: The patient is alert, oriented, appears in no acute distress. Patient is shaky. HET: Head is normocephalic and atraumatic. Conjunctiva pink. Sclera anicteric. Neck: Supple without lymphadenopathy. Trachea midline. Heart: S1 S2. Regular rate and rhythm. Lungs: Clear to auscultation. Abdomen: Soft, nondistended, nondistended with bowel sounds. No guarding or rigidity. Skin: No rashes. Mild jaundice. Extremities: Normal skin color and turgor. No pedal edema. Neurological: No focal deficits. Alert and oriented x3. Results CBC & Chem 7: 05/26/21 08:34 05/26/21 08:34 Labs: Abnormal Lab Results - Last 24 Hours (Table) 05/25/21 05/25/21 05/25/21 Range/Units 17:24 17:24 18:07 WBC 12.0 H (3.8-10.6) k/uL RBC 2.41 L (4.30-5.90) m/uL Hgb 7.2 L (13.0-17.5) gm/dL Hct 22.7 L (39.0-53.0) % RDW 16.2 H (11.5-15.5) % Plt Count (150-450) k/uL Neutrophils # 9.7 H (1.3-7.7) k/uL PT (9.0-12.0) sec INR (<1.2) Sodium 133 L (137-145) mmol/L Potassium 3.4 L (3.5-5.1) mmol/L Chloride 97 L (98-107) mmol/L BUN 58 H (9-20) mg/dL Glucose 147 H (74-99) mg/dL Magnesium 1.5 L (1.6-2.3) mg/dL Total Bilirubin 2.5 H (0.2-1.3) mg/dL AST 120 H (17-59) U/L Total Protein 5.9 L (6.3-8.2) g/dL Albumin 3.2 L (3.5-5.0) g/dL Crossmatch See Detail 05/25/21 05/26/21 05/26/21 Range/Units 19:00 00:34 02:12 WBC 13.6 H (3.8-10.6) k/uL RBC 1.99 L 1.89 L (4.30-5.90) m/uL Hgb 6.1 L* 5.8 L* (13.0-17.5) gm/dL Hct 18.5 L* 18.0 L* (39.0-53.0) % RDW 16.6 H 16.3 H (11.5-15.5) % Plt Count 120 L 143 L (150-450) k/uL Neutrophils # 10.5 H (1.3-7.7) k/uL PT 18.8 H (9.0-12.0) sec INR 1.9 H (<1.2) Sodium (137-145) mmol/L Potassium (3.5-5.1) mmol/L Chloride (98-107) mmol/L BUN (9-20) mg/dL Glucose (74-99) mg/dL Magnesium (1.6-2.3) mg/dL Total Bilirubin (0.2-1.3) mg/dL AST (17-59) U/L Total Protein (6.3-8.2) g/dL Albumin (3.5-5.0) g/dL Crossmatch Assessment and Plan (1) Alcoholic cirrhosis of liver Narrative/Plan: 50-year-old male with a history of significant alcohol abuse over the last 20 years duration. Presented to the emergency room yesterday evening with concerns of going through withdrawal and feeling shaky. Apparently he also had a fall for which he is unsure if he had a seizure. He was seen in December 2020 for severe jaundice and was noted to have cholelithiasis and choledocholithiasis. He underwent a cholecystectomy and ERCP with stone removal. He denies any abdominal pain, nausea, or vomiting. He does appear to be going through withdrawals at this time and is very shaky. He was noted to be anemic on admission with a drop down to 5.8. He was transfused 1 unit of PRBC and repeat hemoglobin today was 6.5. Current labs WBC 15.7 hemoglobin 6.5 hematocrit 20 INR 1.9 sodium 136 potassium 3.2 BUN 47 creatinine 1.03 total bilirubin 2.3 AST 114 ALT 47 alkaline phosphatase 46. The patient has reported no abdominal pain, nausea or vomiting. He has been reporting black stools for the last 1-2 weeks duration. He's had no previous EGD or colonoscopy. Current Visit: Yes Status: Acute Code(s): K70.30 - ALCOHOLIC CIRRHOSIS OF LIVER WITHOUT ASCITES SNOMED Code(s): 301758797 (2) Anemia Current Visit: Yes Status: Acute Code(s): D64.9 - ANEMIA, UNSPECIFIED SNOMED Code(s): 051008156 (3) Alcohol abuse Current Visit: Yes Status: Acute Code(s): F10.10 - ALCOHOL ABUSE, UNCOMPLICATED SNOMED Code(s): 15727858 Plan: 1. Continue symptomatic and supportive care 2. CIWA protocol 3. Clear liquid diet 4. Nothing by mouth after midnight 5. Repeat CBC this morning, transfuse per protocol 6. Protonix 40 mg twice a day 7. Stat ammonia level 8. Alcohol abstinence 9. We'll plan for EGD tomorrow. Procedure discussed with patient including risk and benefits. Patient is agreeable to proceed. Thank you for allowing us to participate in the care of the patient, the GI service will sign off, gastroenterology will not be available at the hospital this weekend and through next week. If further evaluation by gastroenterology is required the patient will need transfer as per the primary team's discretion. Dr. Manpreet Medrano I agree with the dictator's note, documented as a scribe by Moriah Michelle.
[2021-05-26] MEDS ORDERED: Potassium Replacement Protocol 1 EACH MISC MISCELLANE PRN (11:45)
[2021-05-26 11:47] LABS: Lymphocytes # (M) 2.98 k/uL (1.0-4.8); Monocytes # (M) 0.47 k/uL (0-1.0); Neutrophils % (M) 79 %; Nucleated Red Blood Cells 0 /100 WBC (0-0); Total Cells Counted 200
[2021-05-26] MEDS ORDERED: Magnesium Replacement Protocol 1 EACH MISC MISCELLANE PRN (12:26)
[2021-05-26] MEDS: LACTULOSE 20 GM/30 ML CUP PO SCH ×2 (13:24→21:16)
[2021-05-26] MEDS: POTASSIUM CHLORIDE ER 20 MEQ TAB.ER PO SCH ×2 (13:25→16:05)
[2021-05-26] MEDS: MAGNESIUM SULFATE-D5W PMX 1 GM in DEXTROSE/WATER 1 100ML.BAG IVPB SCH ×2 (13:29→17:30)
[2021-05-26] MEDS ORDERED: PHYTONADIONE ORAL 5 MG/5 ML ORAL.SYRG PO STA (15:34)
[2021-05-26] MEDS: SODIUM CHLORIDE 0.9% 1,000 ML IV SCH (17:36)
--- NOTE | 2021-05-26 18:14 | HP ---
HISTORY AND PHYSICAL CHIEF COMPLAINT: Possible seizure. HISTORY OF PRESENT ILLNESS: This is another admission for this 50-year-old chronic alcoholic. He was in the hospital last year with alcoholic hepatitis, jaundice and cholelithiasis. He went home and was seen once or twice in the office and then disappeared. He came back in this time having had a blackout or seizure. He does not remember injuring himself. He does not remember anything about it. He did lose control of the bladder. His alcohol level was markedly elevated and he was slightly jaundiced. He also was profoundly anemic, with a hemoglobin of 6.5. He was admitted. His magnesium was low. His bilirubin was 2.5. REVIEW OF SYSTEMS: He denies any focal neurologic deficits. He does seem to be slightly confused and slightly delirious. He denies chest pain, abdominal pain, etc. He does state that he has had some black stool of late. The remainder of his history is unremarkable as far as we know. He is not taking any medication. Surgically he has had the cholecystectomy. PHYSICAL EXAMINATION: Blood pressure is 110/70 with a pulse of 100, respirations of 35. He is afebrile. In general he appeared to be slightly jaundiced. He was somewhat lethargic. Head, ears, eyes, nose, mouth and throat were normal. Neck veins were not distended. Chest was clear. Cardiac exam was normal and the abdomen was distended and nontender. It was felt that the distention was due to ascites. There was no tenderness. Bowel sounds were present. Extremities were normal. Neurologically, other than his slight lethargy, he seemed to be intact. He is admitted to the hospital with the diagnoses: 1. Probable alcohol withdrawal seizure. 2. Chronic alcoholism. 3. Alcoholic hepatitis. 4. Ascites. 5. Probable gastrointestinal bleed. 6. Anemia. PLAN: 1. Bedrest. 2. IV fluids. 3. Follow hemoglobins. 4. GI consult. 5. WA protocol. MMODL / SKINNYN: [id number] /
[2021-05-26 18:19] LABS: Anisocytosis Slight; Hypochromasia Slight; MCH 32.7 pg (25.0-35.0); MCHC 34.7 g/dL (31.0-37.0); MCV 94.2 fL (80.0-100.0); Mean Platelet Volume 11.1; Platelet Count 112 k/uL (150-450); Poikilocytosis Slight; RBC 2.11 m/uL (4.30-5.90); RDW 16.4 % (11.5-15.5); WBC 14.7 k/uL (3.8-10.6)
[2021-05-26 18:26] LABS: HCT 19.9 % (39.0-53.0); HGB 6.9 gm/dL (13.0-17.5)
[2021-05-26 22:01] LABS: Anisocytosis Slight; Hypochromasia Slight; MCHC 32.9 g/dL (31.0-37.0); MCV 94.3 fL (80.0-100.0); Mean Platelet Volume 11.3; Poikilocytosis Slight; RBC 2.07 m/uL (4.30-5.90); WBC 12.8 k/uL (3.8-10.6)
[2021-05-26 22:16] LABS: HGB 6.4 gm/dL (13.0-17.5)
[2021-05-26 22:17] LABS: HCT 19.5 % (39.0-53.0)
[2021-05-26 22:37] LABS: Platelet Count 87 k/uL (150-450)
[2021-05-27] MEDS: SODIUM CHLORIDE 0.9% 1,000 ML IV SCH ×3 (03:25→20:07)
[2021-05-27] MEDS: THIAMINE 100 MG TAB PO SCH ×2 (04:45→16:55)
[2021-05-27 05:19] LABS: Anisocytosis Slight; Basophils % (A) 0 %; Eosinophils # (A) 0.1 k/uL (0-0.7); Eosinophils % (A) 1 %; Hypochromasia Slight; Lymphocytes # (A) 2.4 k/uL (1.0-4.8); Lymphocytes % (A) 24 %; MCH 31.6 pg (25.0-35.0); MCHC 33.5 g/dL (31.0-37.0); MCV 94.4 fL (80.0-100.0); Mean Platelet Volume 10.6; Monocytes # (A) 0.5 k/uL (0-1.0); Monocytes % (A) 5 %; Neutrophils % (A) 68 %; Poikilocytosis Slight; RBC 2.23 m/uL (4.30-5.90); RDW 17.2 % (11.5-15.5); WBC 10.3 k/uL (3.8-10.6)
[2021-05-27 05:20] LABS: Platelet Count 89 k/uL (150-450)
[2021-05-27 05:38] LABS: ALT 57 U/L (4-49); AST 125 U/L (17-59); African American GFR (CKD) >90 (>60 ml/min/1.73 sqM); Albumin 2.4 g/dL (3.5-5.0); Alkaline Phosphatase 50 U/L (38-126); Anion Gap 4 mmol/L; Blood Urea Nitrogen 28 mg/dL (9-20); Calcium 7.5 mg/dL (8.4-10.2); Carbon Dioxide 25 mmol/L (22-30); Chloride 107 mmol/L (98-107); Glucose 113 mg/dL (74-99); Magnesium 2.4 mg/dL (1.6-2.3); Non-African American GFR(CKD) >90 (>60 ml/min/1.73 sqM); Potassium 2.8 mmol/L (3.5-5.1); Sodium 136 mmol/L (137-145); Total Bilirubin 2.7 mg/dL (0.2-1.3); Total Protein 4.9 g/dL (6.3-8.2)
[2021-05-27] MEDS ORDERED: IV FLUID CONTINUATION 1,000 ML IV ONE ×2 (07:27)
--- NOTE | 2021-05-27 07:38 | P.PCN ---
Date of Procedure: 05/27/21 Procedure(s) Performed: BRIEF HISTORY: Patient is a 50-year-old, pleasant, white male in the hospital with severe symptomatic anemia and black tarry stools for the last 1 week duration. His hemoglobin of 6.3 g/dL and received a unit of PRBC transfusion. Today hemoglobin is 7.1 g/dL. Patient has history of heavy alcohol with possible underlying of chronic alcoholic liver disease.. PROCEDURE PERFORMED: Esophagogastroduodenoscopy. PREOPERATIVE DIAGNOSIS: Severe anemia/black tarry stools. IV sedation per anesthesia. PROCEDURE: After informed consent was obtained, the patient was brought into the endoscopy unit. IV sedation was administered by Anesthesia under continuous monitoring. Initially the Olympus GIF-140 video endoscope was inserted into the mouth. Esophagus intubated without any difficulty. It was gradually advanced into the stomach and duodenum and carefully examined. The bulb and the second part of the duodenum appeared normal. The scope at this time was withdrawn to the stomach, adequately insufflated with air, and upon careful examination, mucosa of the antrum, appeared normal. Mucosa of the body, cardia and the fundus changes consistent with mild to moderate PortalHypertensive gastropathy.. The scope was then withdrawn into the esophagus. The GE junction was located at 39 cm from the incisors. there were large distal esophageal varices identified with few red mark sparks noted. No active bleeding noted. This endoscope was removed and esophageal variceal ligation equipment was introduced at the tip of the scope and esophagus intubated without any difficulty and was gradually advanced into the distal esophagus. In a spiral fashion for total of 5 bands were deployed in the distal and midesophagus. The rest of theesophagus appeared normal. There were no erosions or ulcerations seen and the patient tolerated the procedure well. IMPRESSION: 1. Large distal esophageal varices with no active bleeding status post variceal ligation as described above 2. Moderate portal hypertensive gastropathy. RECOMMENDATIONS: The findings of this examination were discussed with the patient . He'll be on a soft diet today. Continue to monitor CBC on a daily basis. Transfuse if hemoglobin less than 7.
[2021-05-27] MEDS: PANTOPRAZOLE 40 MG/10 ML VIAL IVP SCH (09:03)
[2021-05-27] MEDS: POTASSIUM CHLORIDE ER 20 MEQ TAB.ER PO SCH ×3 (09:03→12:04)
[2021-05-27] MEDS: LACTULOSE 20 GM/30 ML CUP PO SCH ×3 (09:04→20:07)
[2021-05-27 11:19] LABS: Anisocytosis Slight; HCT 21.1 % (39.0-53.0); HGB 7.1 gm/dL (13.0-17.5); Hypochromasia Slight; MCH 31.6 pg (25.0-35.0); MCHC 33.7 g/dL (31.0-37.0); MCV 93.9 fL (80.0-100.0); Mean Platelet Volume 11.2; Poikilocytosis Moderate; RBC 2.24 m/uL (4.30-5.90); RDW 17.6 % (11.5-15.5)
[2021-05-27 11:25] LABS: Platelet Count 74 k/uL (150-450)
[2021-05-27 15:23] LABS: INR 1.3 (<1.2); Prothrombin Time 13.9 sec (9.0-12.0)
--- NOTE | 2021-05-27 16:40 | PN ---
PROGRESS NOTE CHIEF COMPLAINT: Alcohol withdrawal seizure. HISTORY OF PRESENT ILLNESS: This gentleman seems to be a little bit more steady. His affect is still flat. His hemoglobin continues to hover around 6 to 7. He is being transfused. There is no evidence of significant GI bleeding at this time. He has been seen by GI and they are planning on scoping him tomorrow. PHYSICAL EXAMINATION: He is pale and slightly jaundiced. Head, ears, eyes, nose, mouth and throat are otherwise normal. His chest is clear. Cardiac exam demonstrates sinus tachycardia. The abdomen is slightly protuberant and nontender without any masses or visceromegaly. Extremities are normal. IMPRESSION: 1. Alcohol withdrawal seizure. 2. Chronic alcoholism. 3. Cirrhosis. 4. Ascites. 5. Blood loss anemia. 6. Probable upper gastrointestinal bleed. PLAN: 1. Continue to monitor hemoglobin. 2. Continue on CIWA protocol. 3. He is going for upper GI endoscopy tomorrow. MMODL / IJN: [id number] /
--- NOTE | 2021-05-27 17:07 | PN ---
PROGRESS NOTE CHIEF COMPLAINT: Upper GI bleed, blood loss anemia, cirrhosis and chronic alcoholism. HISTORY OF PRESENT ILLNESS: This gentleman is back from his scope and apparently had esophageal varices, three of which were banded. REVIEW OF SYSTEMS: He remains comfortable at the time, but his mental status still seems to be blunted. PHYSICAL EXAMINATION: He remains pale. Chest is clear. Cardiac exam demonstrates his sinus tachycardia. The abdomen is soft and slightly distended. IMPRESSION: 1. Upper gastrointestinal bleed with blood loss anemia. 2. Cirrhosis. 3. Esophageal varices. 4. Chronic alcoholism. 5. Probable alcoholic encephalopathy. PLAN: Continue supportive care and continue to monitor his hemoglobin. MMODL / IJN: [id number] /
[2021-05-27] MEDS: ACETAMINOPHEN TAB 325 MG TAB PO PRN (20:55)
[2021-05-28] MEDS: SODIUM CHLORIDE 0.9% 1,000 ML IV SCH ×2 (06:17→15:08)
[2021-05-28] MEDS: THIAMINE 100 MG TAB PO SCH ×2 (06:18→17:10)
[2021-05-28 08:21] LABS: Anisocytosis Slight; HCT 21.7 % (39.0-53.0); HGB 7.1 gm/dL (13.0-17.5); Hypochromasia Slight; MCH 31.9 pg (25.0-35.0); MCHC 32.9 g/dL (31.0-37.0); MCV 96.8 fL (80.0-100.0); Macrocytosis Slight; Mean Platelet Volume 9.5; Poikilocytosis Slight; RBC 2.24 m/uL (4.30-5.90); RDW 19.3 % (11.5-15.5); WBC 5.5 k/uL (3.8-10.6)
[2021-05-28 08:27] LABS: Platelet Count 74 k/uL (150-450)
[2021-05-28 08:35] LABS: African American GFR (CKD) >90 (>60 ml/min/1.73 sqM); Anion Gap 2 mmol/L; Blood Urea Nitrogen 11 mg/dL (9-20); Calcium 7.6 mg/dL (8.4-10.2); Carbon Dioxide 25 mmol/L (22-30); Chloride 107 mmol/L (98-107); Glucose 95 mg/dL (74-99); Non-African American GFR(CKD) >90 (>60 ml/min/1.73 sqM); Potassium 3.1 mmol/L (3.5-5.1); Sodium 134 mmol/L (137-145)
[2021-05-28] MEDS: PANTOPRAZOLE 40 MG/10 ML VIAL IVP SCH (08:48)
[2021-05-28] MEDS: LACTULOSE 20 GM/30 ML CUP PO SCH ×3 (08:48→19:44)
[2021-05-28] MEDS: POTASSIUM CHLORIDE ER 20 MEQ TAB.ER PO SCH ×4 (12:10→21:03)
--- NOTE | 2021-05-28 13:50 | PN ---
PROGRESS NOTE CHIEF COMPLAINT: Alcohol withdrawal seizure, alcoholism. HISTORY OF PRESENT ILLNESS: This gentleman seems to be doing fairly well, but his potassium remains low. He has had no further problems, including lethargy, seizures, etc. Hemoglobin is starting to level off at around 7.1. PHYSICAL EXAMINATION: He is slightly jaundiced and pale. He is awake and alert. Chest is clear. Cardiac exam is normal. Abdomen is soft and nontender. There is a small amount of ascites. IMPRESSION: 1. Alcohol-related seizure. 2. Chronic alcoholism. 3. Blood-loss anemia. 4. Esophageal varices. 5. Hypokalemia. 6. Thrombocytopenia. PLAN: Continue with current program and continue to try to correct potassium. MMODL / IJN: [id number] /
[2021-05-28 19:18] LABS: African American GFR (CKD) >90 (>60 ml/min/1.73 sqM); Anion Gap 4 mmol/L; Blood Urea Nitrogen 8 mg/dL (9-20); Calcium 7.9 mg/dL (8.4-10.2); Carbon Dioxide 24 mmol/L (22-30); Chloride 107 mmol/L (98-107); Glucose 118 mg/dL (74-99); Magnesium 2.3 mg/dL (1.6-2.3); Non-African American GFR(CKD) >90 (>60 ml/min/1.73 sqM); Sodium 135 mmol/L (137-145)
[2021-05-28] MEDS: ACETAMINOPHEN TAB 325 MG TAB PO PRN (23:22)
[2021-05-29] MEDS: SODIUM CHLORIDE 0.9% 1,000 ML IV SCH ×3 (02:10→23:30)
[2021-05-29] MEDS: THIAMINE 100 MG TAB PO SCH ×2 (06:21→17:13)
[2021-05-29] MEDS: LACTULOSE 20 GM/30 ML CUP PO SCH ×3 (08:28→20:06)
[2021-05-29 09:03] LABS: Anisocytosis Moderate; Basophils % (A) 0 %; Eosinophils # (A) 0.2 k/uL (0-0.7); Eosinophils % (A) 4 %; HGB 7.6 gm/dL (13.0-17.5); Hypochromasia Moderate; Lymphocytes # (A) 1.4 k/uL (1.0-4.8); Lymphocytes % (A) 26 %; MCH 31.2 pg (25.0-35.0); MCHC 31.6 g/dL (31.0-37.0); MCV 98.6 fL (80.0-100.0); Macrocytosis Slight; Monocytes # (A) 0.3 k/uL (0-1.0); Monocytes % (A) 5 %; Neutrophils # (A) 3.5 k/uL (1.3-7.7); Neutrophils % (A) 63 %; Poikilocytosis Slight; RBC 2.43 m/uL (4.30-5.90); RDW 20.3 % (11.5-15.5); WBC 5.6 k/uL (3.8-10.6)
[2021-05-29 09:07] LABS: Platelet Count 83 k/uL (150-450)
[2021-05-29] MEDS: PANTOPRAZOLE 40 MG/10 ML VIAL IVP SCH (09:12)
[2021-05-29 09:25] LABS: African American GFR (CKD) >90 (>60 ml/min/1.73 sqM); Anion Gap 2 mmol/L; Blood Urea Nitrogen 6 mg/dL (9-20); Calcium 7.9 mg/dL (8.4-10.2); Carbon Dioxide 25 mmol/L (22-30); Chloride 108 mmol/L (98-107); Glucose 167 mg/dL (74-99); Non-African American GFR(CKD) >90 (>60 ml/min/1.73 sqM); Potassium 3.1 mmol/L (3.5-5.1); Sodium 135 mmol/L (137-145)
[2021-05-29] MEDS ORDERED: Potassium Replacement Protocol 1 EACH MISC MISCELLANE PRN (09:56)
[2021-05-29] MEDS: POTASSIUM CHLORIDE ER 20 MEQ TAB.ER PO SCH ×4 (11:59→21:24)
--- NOTE | 2021-05-29 13:39 | PN ---
PROGRESS NOTE CHIEF COMPLAINT: Alcohol withdrawal seizure. HISTORY OF PRESENT ILLNESS: This gentleman is doing fairly well, but his potassium remains low. Hemoglobin is maintaining above 7. REVIEW OF SYSTEMS: He does not have any complaints. PHYSICAL EXAMINATION: He continues to look pale and slightly jaundiced. Chest is clear. Cardiac exam is normal. Abdomen is soft and nontender. Extremities are normal. IMPRESSION: 1. Alcohol-related seizure. 2. Chronic alcoholism. 3. Cirrhosis. 4. Esophageal varices. 5. Blood loss anemia. PLAN: Try to correct his hypokalemia. He is getting close to being able to go home. MMODL / IJN: [id number] /
[2021-05-29 18:56] LABS: African American GFR (CKD) >90 (>60 ml/min/1.73 sqM); Anion Gap 5 mmol/L; Blood Urea Nitrogen 5 mg/dL (9-20); Calcium 7.8 mg/dL (8.4-10.2); Carbon Dioxide 23 mmol/L (22-30); Chloride 107 mmol/L (98-107); Glucose 116 mg/dL (74-99); Non-African American GFR(CKD) >90 (>60 ml/min/1.73 sqM); Potassium 3.3 mmol/L (3.5-5.1); Sodium 135 mmol/L (137-145)
[2021-05-29] MEDS ORDERED: LACTATED RINGERS 1,000 ML IV SCH (23:19)
[2021-05-29] MEDS ORDERED: LIDOCAINE 1% (10MG/ML) FOR IV START INTRADERMA PRN (23:19)
[2021-05-30 03:49] VITALS: TEMP 98.6
[2021-05-30 07:12] VITALS: BP 131/61; PULSE 97; RESP 18
[2021-05-30] MEDS: PANTOPRAZOLE 40 MG/10 ML VIAL IVP SCH (07:19)
[2021-05-30] MEDS: THIAMINE 100 MG TAB PO SCH (07:19)
[2021-05-30] MEDS: LACTULOSE 20 GM/30 ML CUP PO SCH (07:19)
--- NOTE | 2021-05-30 19:35 | DS ---
DISCHARGE SUMMARY CHIEF COMPLAINT: Grand mal seizure. HISTORY OF PRESENT ILLNESS AND PHYSICAL EXAMINATION: Details of this man's history and physical can be found in the initial workup. LABORATORY STUDIES: While he was in the hospital, he had laboratory studies details of which can be found in the laboratory section of his chart. COURSE IN THE HOSPITAL: After admission, he was placed on bedrest, started on intravenous fluids and seizure precautions. He was anemic and his liver function studies were markedly elevated. He stabilized, but he had a profound anemia due to blood loss and eventually was taken for an upper GI endoscopy where he was found to have esophageal varices. Three of which were banded. Postoperatively, his hemoglobin tony slowly to around 7.2. His ammonia level remained down. He had no further neurologic problems and was doing well and it was felt he could go home on the eighth. He will follow up in the office in several days. FINAL DIAGNOSES: 1. Alcohol-related seizure. 2. Gastrointestinal blood loss. 3. Upper gastrointestinal bleed. 4. Esophageal varices. 5. Chronic alcoholism. 6. Cirrhosis. 7. Ascites. OPERATIONS: Upper GI endoscopy. CONSULTATIONS: Gastroenterology. He is improved. MMODL / IJN: [id number] /
== END 2021-05-30 13:10 | disposition home or self-care (01) | DRG 101 ==
LOC: EC 17:01 → 5NMEDONC 18:15 → 3SCARD 19:47 → 4SSUR 05-29 23:16
PROVIDERS: ADMIT Family Medicine; ATTEND Family Medicine
PROC: HZ2ZZZZ Detoxification Services for Substance Abuse Treatment (ICD-10-PCS; 2021-05-26)
PROC: 30233N1 Transfusion of Nonautologous Red Blood Cells into Peripheral Vein, Percutaneous Approach (ICD-10-PCS; 2021-05-26)
PROC: 06L38CZ Occlusion of Esophageal Vein with Extraluminal Device, Via Natural or Artificial Opening Endoscopic (ICD-10-PCS; principal; 2021-05-27 07:55)
DX: R56.9 Unspecified convulsions (principal); F10.239 Alcohol dependence with withdrawal, unspecified; I85.10 Secondary esophageal varices without bleeding; K76.6 Portal hypertension; K70.11 Alcoholic hepatitis with ascites; R53.1 Weakness; Z20.822 Contact with and (suspected) exposure to COVID-19; D64.9 Anemia, unspecified; E83.42 Hypomagnesemia; K70.31 Alcoholic cirrhosis of liver with ascites; D50.0 Iron deficiency anemia secondary to blood loss (chronic); R19.5 Other fecal abnormalities; E87.6 Hypokalemia; G31.2 Degeneration of nervous system due to alcohol; D69.6 Thrombocytopenia, unspecified; K31.89 Other diseases of stomach and duodenum; Z90.49 Acquired absence of other specified parts of digestive tract; Z87.891 Personal history of nicotine dependence; Z91.018 Allergy to other foods
CPT/HCPCS: 36415; 43244; 80048; 80053; 80306; 80320; 82140; 83735; 85025; 85027; 85610; 86850; 86900; 86901; 86920; 87635; 93005; 94760; 96361; 96374; 96375; 99285

== ENCOUNTER → 2021-08-21 | Outpatient (CLI) | payer OTHER ==
[2021-08-21 18:06] LABS: Basophils % (A) 2.6 %; Eosinophils # (A) 0.33 X 10*3/uL (0.04-0.35); Eosinophils % (A) 4.3 %; HCT 48.9 % (39.6-50.0); HGB 15.3 g/dL (13.0-17.0); Immature Grans, Automated 0.3 %; Lymphocytes # (A) 2.64 X 10*3/uL (0.90-5.00); Lymphocytes % (A) 34.2 %; MCH 27.6 pg (27.0-32.0); MCHC 31.3 g/dL (32.0-37.0); MCV 88.1 fL (80.0-97.0); Mean Platelet Volume 10.5 fL (9.5-12.2); Monocytes # (A) 0.73 X 10*3/uL (0.20-1.00); Monocytes % (A) 9.4 %; NRBC Per 100 WBC 0 /100 WBCS (0.0-0.0); Neutrophils # (A) 3.81 X 10*3/uL (1.80-7.70); Neutrophils % (A) 49.2 %; Platelet Count 199 X 10*3/uL (140-440); RBC 5.55 X 10*6/uL (4.40-5.60); RDW 20.8 % (11.5-14.5); WBC 7.73 X 10*3/uL (4.50-10.00)
[2021-08-21 18:19] LABS: African American GFR (CKD) 91.5 (60.0-200.0); Albumin 4.5 g/dL (3.8-4.9); Albumin/Globulin Ratio 1.36 (1.60-3.17); Anion Gap 11.6 mmol/L (10.00-18.00); BUN/Creat Ratio 6.73 Ratio (12.00-20.00); Blood Urea Nitrogen 7.4 mg/dL (9.0-27.0); Carbon Dioxide 25.4 mmol/L (20.0-27.5); Globulin 3.3 g/dL (1.6-3.3); Potassium 4.2 mmol/L (3.5-5.5); Total Bilirubin 0.7 mg/dL (0.30-1.20); Total Protein 7.8 g/dL (6.2-8.2)
== END | disposition home or self-care (01) ==
LOC: LABWHC1 11:31
PROVIDERS: ATTEND Internal Medicine Gastroenterology
DX: K80.50 Calculus of bile duct without cholangitis or cholecystitis without obstruction (principal)
CPT/HCPCS: 36415; 80053; 85025

== ENCOUNTER → 2021-09-30 | Outpatient (CLI) | payer OTHER ==
[2021-09-30 10:51] LABS: INR 1.1 (<1.2); Partial Thromboplastin Time 28.2 sec (22.0-30.0); Prothrombin Time 11.5 sec (9.0-12.0)
[2021-09-30 16:09] LABS: Basophils # (A) 0.19 X 10*3/uL (0.00-0.10); Basophils % (A) 2.1 %; Eosinophils # (A) 0.34 X 10*3/uL (0.04-0.35); Eosinophils % (A) 3.8 %; HCT 53.6 % (39.6-50.0); HGB 17.1 g/dL (13.0-17.0); Immature Grans, Automated 0.1 %; Lymphocytes # (A) 2.86 X 10*3/uL (0.90-5.00); Lymphocytes % (A) 32.3 %; MCH 29.2 pg (27.0-32.0); MCHC 31.9 g/dL (32.0-37.0); MCV 91.5 fL (80.0-97.0); Mean Platelet Volume 10.9 fL (9.5-12.2); Monocytes # (A) 0.77 X 10*3/uL (0.20-1.00); Monocytes % (A) 8.7 %; NRBC Per 100 WBC 0 /100 WBCS (0.0-0.0); Neutrophils # (A) 4.68 X 10*3/uL (1.80-7.70); Platelet Count 219 X 10*3/uL (140-440); RBC 5.86 X 10*6/uL (4.40-5.60); RDW 14.3 % (11.5-14.5); WBC 8.85 X 10*3/uL (4.50-10.00)
[2021-09-30 16:33] LABS: African American GFR (CKD) 102.7 (60.0-200.0); Albumin 4.7 g/dL (3.8-4.9); Albumin/Globulin Ratio 1.52 (1.60-3.17); Anion Gap 10.4 mmol/L (10.00-18.00); BUN/Creat Ratio 9.9 Ratio (12.00-20.00); Blood Urea Nitrogen 9.9 mg/dL (9.0-27.0); Calcium 10.1 mg/dL (8.7-10.3); Carbon Dioxide 28.6 mmol/L (20.0-27.5); Globulin 3.1 g/dL (1.6-3.3); Non-African American GFR(CKD) 88.6 (60.0-200.0); Potassium 4.2 mmol/L (3.5-5.5); Total Bilirubin 0.4 mg/dL (0.30-1.20); Total Protein 7.8 g/dL (6.2-8.2)
== END | disposition home or self-care (01) ==
LOC: LABWHC1 10:08
PROVIDERS: ATTEND Internal Medicine Gastroenterology
DX: K70.30 Alcoholic cirrhosis of liver without ascites (principal)
CPT/HCPCS: 36415; 80053; 82105; 85025; 85610; 85730

== ENCOUNTER 2021-10-03 08:22 | Day surgery (SDC) | payer OTHER ==
[2021-09-29 15:39] VITALS: BMI 31.0
[~2021-10-03 08:22] MED LIST: LACTATED RINGERS 1,000 ML IV SCH; LIDOCAINE 1% (10MG/ML) FOR IV START INTRADERMA PRN
[2021-10-03 08:37] VITALS: RESP 16; TEMP 97.7
[2021-10-03] MEDS ORDERED: LIDOCAINE 2% INJ 20 MG/ML (2 ML VIAL) ONE (09:52)
[2021-10-03] MEDS ORDERED: PROPOFOL 10 MG/ML 20 ML VIAL IV ONE (09:52)
[2021-10-03] MEDS ORDERED: fentaNYL (PF) 50 MCG/ML 2 ML AMP ONE (09:52)
--- NOTE | 2021-10-03 10:10 | P.PCN ---
Date of Procedure: 10/03/21 Procedure(s) Performed: BRIEF HISTORY: Patient is a 50-year-old, pleasant, white female with history of alcohol cirrhosis and esophageal varices, status post variceal ligation in May of this year. He scheduled for a follow-up upper endoscopy with esophageal variceal ligation. PROCEDURE PERFORMED: Esophagogastroduodenoscopy. PREOPERATIVE DIAGNOSIS: Follow-up esophageal varices. IV sedation per anesthesia. PROCEDURE: After informed consent was obtained, the patient was brought into the endoscopy unit. IV sedation was administered by Anesthesia under continuous monitoring. Initially the Olympus GIF-140 video endoscope was inserted into the mouth. Esophagus intubated without any difficulty. It was gradually advanced into the stomach and duodenum and carefully examined. The bulb and the second part of the duodenum appeared normal. The scope at this time was withdrawn to the stomach, adequately insufflated with air, and upon careful examination, mucosa of the antrum, body, cardia and the fundus had changes consistent with mild portal hypertensive gastropathy. No gastric varices seen.. The scope was then withdrawn into the esophagus. The GE junction was located at 39 cm from the incisors. There was one small distal esophageal varix identified. The rest of the esophagus appeared normal. There were no erosions or ulcerations seen. No variceal ligation was performed and the patient tolerated the procedure well. IMPRESSION: 1. Very small distal esophageal varix and no ligation was performed. 2. Mild portal hypertensive gastropathy. RECOMMENDATIONS: The findings of this examination were discussed with the patient as well as his family. He will continue with Inderal 10 mg 3 times daily and will plan a repeat upper endoscopy with variceal ligation in 1 year..
[2021-10-03 10:36] VITALS: BP 103/64; PULSE 66
== END 2021-10-03 10:50 | disposition home or self-care (01) ==
LOC: ORWHC2ENDO 08:22
PROVIDERS: ATTEND Internal Medicine Gastroenterology
DX: I85.00 Esophageal varices without bleeding (principal); K76.6 Portal hypertension; K70.30 Alcoholic cirrhosis of liver without ascites; K31.89 Other diseases of stomach and duodenum; I10 Essential (primary) hypertension; Z87.891 Personal history of nicotine dependence; Z79.899 Other long term (current) drug therapy; Z91.018 Allergy to other foods
CPT/HCPCS: 43235; J3010; J2704; J2001

== ENCOUNTER → 2022-04-03 | Outpatient (CLI) | payer OTHER ==
[2022-04-03 14:38] LABS: Basophils # (A) 0.22 X 10*3/uL (0.00-0.10); Basophils % (A) 2.4 %; Eosinophils % (A) 2.1 %; HCT 47.7 % (39.6-50.0); HGB 17.7 g/dL (13.0-17.0); Immature Grans, Automated 0.3 %; Lymphocytes # (A) 2.29 X 10*3/uL (0.90-5.00); Lymphocytes % (A) 24.5 %; MCH 35.3 pg (27.0-32.0); MCHC 37.1 g/dL (32.0-37.0); MCV 95.2 fL (80.0-97.0); Mean Platelet Volume 10.5 fL (9.5-12.2); Monocytes # (A) 0.91 X 10*3/uL (0.20-1.00); Monocytes % (A) 9.8 %; NRBC Per 100 WBC 0 /100 WBCS (0.0-0.0); Neutrophils # (A) 5.68 X 10*3/uL (1.80-7.70); Neutrophils % (A) 60.9 %; Platelet Count 269 X 10*3/uL (140-440); RBC 5.01 X 10*6/uL (4.40-5.60); RDW 12.1 % (11.5-14.5); WBC 9.33 X 10*3/uL (4.50-10.00)
[2022-04-03 15:04] LABS: African American GFR (CKD) 102.9 (60.0-200.0); Albumin 4.9 g/dL (3.8-4.9); Albumin/Globulin Ratio 1.84 (1.60-3.17); Anion Gap 14.9 mmol/L (10.00-18.00); BUN/Creat Ratio 5.61 Ratio (12.00-20.00); Blood Urea Nitrogen 5.6 mg/dL (9.0-27.0); Calcium 10.2 mg/dL (8.7-10.3); Carbon Dioxide 30.5 mmol/L (20.0-27.5); Globulin 2.6 g/dL (1.6-3.3); Non-African American GFR(CKD) 88.7 (60.0-200.0); Potassium 3.6 mmol/L (3.5-5.5); Total Bilirubin 1.7 mg/dL (0.30-1.20); Total Protein 7.5 g/dL (6.2-8.2)
[2022-04-03 17:32] LABS: INR 1.01 (0.90-1.11); Prothrombin Time 11.4 sec (9.9-11.9)
== END | disposition home or self-care (01) ==
LOC: LABWHC1 09:00
PROVIDERS: ATTEND Internal Medicine Gastroenterology
DX: K70.30 Alcoholic cirrhosis of liver without ascites (principal)
CPT/HCPCS: 36415; 80053; 82105; 85025; 85610

== ENCOUNTER → 2022-10-26 | Outpatient (CLI) | payer OTHER ==
[2022-10-26 16:18] LABS: ALT 20 U/L (10-49); AST 24 U/L (14-35); Albumin 4.3 d/dL (3.8-4.9); Albumin/Globulin Ratio 1.72 Ratio (1.60-3.17); Alkaline Phosphatase 99 U/L (41-126); Blood Urea Nitrogen 8.2 mg/dL (9.0-27.0); Calcium 10.1 mg/dL (8.7-10.3); Carbon Dioxide 26.4 mmol/L (21.6-31.8); Chloride 104 mmol/L (96-109); Globulin 2.5 d/dL (1.6-3.3); Glucose 109 mg/dL (70-110); Potassium 4.6 mmol/L (3.5-5.5); Sodium 141 mmol/L (135-145); Total Bilirubin 0.5 mg/dL (0.3-1.2); Total Protein 6.8 d/dL (6.2-8.2)
[2022-10-26 16:28] LABS: Basophils # (A) 0.16 X 10*3/uL (0.00-0.10); Basophils % (A) 1.8 %; Eosinophils # (A) 0.38 X 10*3/uL (0.04-0.35); Eosinophils % (A) 4.3 %; HCT 50.2 % (39.6-50.0); HGB 16.8 d/dL (12.0-15.0); Lymphocytes # (A) 2.51 X 10*3/uL (0.90-5.00); Lymphocytes % (A) 28.7 %; MCH 32.1 pg (27.0-32.0); MCHC 33.5 d/dL (32.0-37.0); Monocytes # (A) 0.69 X 10*3/uL (0.20-1.00); Monocytes % (A) 7.9 %; NRBC Per 100 WBC 0 X 10*3/uL (0.00-0.01); Neutrophils # (A) 4.97 X 10*3/uL (1.80-7.70); Platelet Count 223 X 10*3/uL (140-440); RBC 5.23 X 10*6/uL (4.40-5.60); RDW 11.9 % (11.5-14.5); WBC 8.74 X 10*3/uL (4.50-10.00)
== END | disposition home or self-care (01) ==
LOC: LABWHC1 09:38
PROVIDERS: ATTEND Internal Medicine Gastroenterology
DX: K70.30 Alcoholic cirrhosis of liver without ascites (principal)
CPT/HCPCS: 36415; 80053; 82105; 85025

== ENCOUNTER → 2022-12-12 | Day surgery (SDC) | payer OTHER ==
[~2022-12-12] MED LIST changes: -LIDOCAINE 1% (10MG/ML) FOR IV START INTRADERMA PRN; +LIDOCAINE 2% INJ 20 MG/ML (2 ML VIAL) ONE; +PROPOFOL 10 MG/ML 20 ML VIAL IV ONE
[2022-12-12 06:33] VITALS: RESP 16; TEMP 97.8
--- NOTE | 2022-12-12 07:27 | P.PCN ---
Date of Procedure: 12/12/22 Procedure(s) Performed: Brief history: Patient is a pleasant 52-year-old white male scheduled for an elective upper endoscopy as well as colonoscopy as a part of evaluation of screening for esophageal varices because of history of liver cirrhosis and screening for colon cancer Procedure performed: Esophagogastroduodenoscopy Colonoscopy with biopsy and snare polypectomy Preoperative diagnosis: History of liver cirrhosis/screening for esophageal varices Screening for colon cancer Anesthesia: MAC Procedure: After informed consent was obtained from the patient was brought into the endoscopy unit and IV sedation was administered by anesthesia under continuous monitoring. Initially upper endoscopy was done. The Olympus GF 160 video endoscope was inserted inserted into the mouth and esophagus intubated without any difficulty and was gradually advanced into the stomach and duodenum and carefully examined. The bulb and second part of the duodenum appeared normal. There was some gastritis and antrum of the stomach and body, cardia and fundus appeared normal. The scope was then withdrawn into the esophagus. The GE junction was located at 40 cm to the incisors. It appeared regular with no erythema erosions or ulcerations. Small distal esophageal varices seen. Rest of the esophagus appeared normal. Patient tolerated the procedure well. At this time the patient continued to remain sedation. Initial digital rectal examination was normal. Olympus CF 160 video colonoscope was then inserted into the rectum and gradually advanced to the cecum without any difficulty. Careful examination was performed as the scope was gradually being withdrawn. The prep was excellent. The cecum, ascending colon, appeared normal. In the descending colon there was a 3 mm polyp that was removed by cold biopsy. Rest of the transverse colon, descending colon appeared normal. In the sigmoid: There was a 7 mm polyp removed by snare polypectomy. Rest of the, sigmoid colon and rectum appeared normal. Retroflexion was performed in the rectum and no lesions were noted. Patient tolerated the procedure well. Impression: 1. Upper endoscopy revealed mild antral gastritis and small esophageal varices 2. Colonoscopy revealed 3 mm descending colon polyp status post-cold biopsy and 7 mm distal sigmoid: Polyp status post-polypectomy Recommendations: Findings of this examination were discussed with the patient as well as his family. He was advised to follow with the biopsy results. If the biopsy results adenoma he can have a repeat colonoscopy in 5 years. Recommend repeat EGD in 3 years.
[2022-12-12 07:47] VITALS: BP 112/75; PULSE 72
== END ==
LOC: ORWHC2ENDO 06:00
PROVIDERS: ATTEND Internal Medicine Gastroenterology
DX: Z12.11 Encounter for screening for malignant neoplasm of colon (principal); D12.4 Benign neoplasm of descending colon; I85.00 Esophageal varices without bleeding; K29.70 Gastritis, unspecified, without bleeding; K74.60 Unspecified cirrhosis of liver; Z79.899 Other long term (current) drug therapy
CPT/HCPCS: 88305; 45380; 45385; 43235; J2704; J2001

== ENCOUNTER → 2023-04-17 | Outpatient (CLI) | payer OTHER ==
--- NOTE | 2023-04-17 08:55 | US ---
EXAMINATION TYPE: US liver DATE OF EXAM: 04/17/2023 COMPARISON: 01/11/2021. CLINICAL INDICATION: Male, 52 years old with history of K70.30 ALCOHOLIC CIRRHOSIS OF LIVER WITHOUT A SCITES; h/o alcohol abuse, no symptoms, gained 50lbs in the past year, cholecystectomy TECHNIQUE: Multiple sonographic images of the right upper quadrant are obtained. FINDINGS: EXAM MEASUREMENTS: Liver Length: 19.4 cm Gallbladder Wall: Surgically absent CBD: 0.6 cm Right Kidney: 12.1 x 5.7 x 4.9 cm BEHAVIORAL HEALTH AIDE NOTES:very difficult to penetrate due to habitus and bowel gas Pancreas: limited views appear wnl Liver: very difficult to penetrate, enlarged Gallbladder: Surgically absent Evidence for sonographic Ngo's sign: no CBD: wnl Right Kidney: wnl IMPRESSION: Limited evaluation due to patient body habitus and difficult penetration of the liver. No suspicious liver masses visualized. The liver is somewhat nodular contour suggestive of cirrhosis similar to be a new finding from 01/11/2021 MRI.
== END | disposition home or self-care (01) ==
LOC: RADUSWWP 07:33
PROVIDERS: ATTEND Internal Medicine Gastroenterology
DX: K70.30 Alcoholic cirrhosis of liver without ascites (principal); Z90.49 Acquired absence of other specified parts of digestive tract
CPT/HCPCS: 76705

== ENCOUNTER → 2023-05-07 | Outpatient (CLI) | payer OTHER ==
[2023-05-07 14:57] LABS: Basophils # (A) 0.17 X 10*3/uL (0.00-0.10); Basophils % (A) 1.6 %; Eosinophils # (A) 0.34 X 10*3/uL (0.04-0.35); Eosinophils % (A) 3.1 %; HCT 52.6 % (39.6-50.0); HGB 17.7 g/dL (13.0-17.0); Lymphocytes # (A) 2.97 X 10*3/uL (0.90-5.00); Lymphocytes % (A) 27.5 %; MCH 32.1 pg (27.0-32.0); MCHC 33.7 g/dL (32.0-37.0); MCV 95.3 FL (80.0-97.0); Mean Platelet Volume 10.8 FL (9.5-12.2); Monocytes # (A) 0.72 X 10*3/uL (0.20-1.00); Monocytes % (A) 6.7 %; NRBC Per 100 WBC 0 X 10*3/uL (0.00-0.01); Neutrophils # (A) 6.56 X 10*3/uL (1.80-7.70); Neutrophils % (A) 60.7 %; Platelet Count 249 X 10*3/uL (140-440); RBC 5.52 X 10*6/uL (4.40-5.60); RDW 13.4 % (11.5-14.5)
[2023-05-07 15:24] LABS: ALT 19 U/L (10-49); AST 26 U/L (14-35); Albumin 4.4 g/dL (3.8-4.9); Albumin/Globulin Ratio 1.76 Ratio (1.60-3.17); Alkaline Phosphatase 103 U/L (41-126); BUN/Creat Ratio 6.82 Ratio (12.00-20.00); Blood Urea Nitrogen 7.5 mg/dL (9.0-27.0); Calcium 10.1 mg/dL (8.7-10.3); Carbon Dioxide 26.6 mmol/L (21.6-31.8); Chloride 102 mmol/L (96-109); Globulin 2.5 g/dL (1.6-3.3); Glucose 122 mg/dL (70-110); Potassium 4.7 mmol/L (3.5-5.5); Sodium 141 mmol/L (135-145); Total Bilirubin 0.7 mg/dL (0.3-1.2); Total Protein 6.9 g/dL (6.2-8.2)
== END | disposition home or self-care (01) ==
LOC: LABWHC1 09:07
PROVIDERS: ATTEND Internal Medicine Gastroenterology
DX: K70.30 Alcoholic cirrhosis of liver without ascites (principal)
CPT/HCPCS: 36415; 80053; 82105; 85025